=== PATIENT | male | born 1965 | race Caucasian/White ===

== ENCOUNTER 2021-09-06 11:46 | Outpatient (CLI) | payer OTHER, SELFPAY ==
--- NOTE | ~2021-09-06 | XR_ITS ---
EXAM: XR shoulder LT min 2V DATE: 09/06/2021 12:33 HISTORY: Pain of left shoulder joint . COMPARISON: None available. FINDINGS: Normal mineralization. Multiple old healed left rib fractures. No acute fracture or disloc ation. No lytic or blastic lesion. Mild AC joint hypertrophy and glenohumeral narrowing. No erosion o r periosteal change. Soft tissues within normal limits. IMPRESSION: Mild glenohumeral and AC joint arthritis. Reviewed, dictated and finalized at location K.
== END 2021-09-06 11:47 ==
PROVIDERS: PCP Physician Assistant; Visit Provider Physician Assistant
DX: M19.012 Primary osteoarthritis, left shoulder (principal)
CPT/HCPCS: 73030

== ENCOUNTER 2023-08-11 14:02 | Outpatient (CLI) | payer BC, SELFPAY ==
--- NOTE | ~2023-08-11 | XR_ITS ---
XR tibia fibula LT 2V DATE: 08/11/2023 14:43 INDICATION: Left lower leg injury TECHNIQUE: AP and lateral views of the lower leg COMPARISON: None FINDINGS: Mild posterior and slight plantar calcaneal enthesopathy. No fracture or dislocation, periosteal reaction or bone destruction of the tibia or fibula is detecte d. Normal alignment at the knee and ankle joints. IMPRESSION: No significant abnormality of the tibia or fibula Reviewed, dictated and finalized at location B.
--- NOTE | ~2023-08-11 | XR_ITS ---
XR hip LT min 2V DATE: 08/11/2023 14:43 INDICATION: Injury. 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 Normal alignment of the pubic symphysis and left sacroiliac joint. Left hip joint space appears relatively well preserved. No fracture, dislocation, avascular necrosis or bone destruction of the left hip. Osteopenia. IMPRESSION: No fracture or dislocation of left Reviewed, dictated and finalized at location B.
--- NOTE | ~2023-08-11 | XR_ITS ---
XR_[id number]_CR DATE: 08/11/2023 14:43 INDICATION: Injury, pain TECHNIQUE: AP and lateral views COMPARISON: None FINDINGS: No fracture or dislocation or joint effusion. No periosteal reaction or bone destruction. J oint spaces are well preserved. No radiopaque intra-articular loose body or chondrocalcinosis. IMPRESSION: Negative Reviewed, dictated and finalized at Location A. Reviewed, dictated and finalized at location B. IMPRESSION: Negative
== END 2023-08-11 14:03 ==
LOC: MICIMG 14:07
PROVIDERS: PCP Physician Assistant; Visit Provider Physician Assistant
DX: S89.92XA Unspecified injury of left lower leg, initial encounter (principal); X58.XXXA Exposure to other specified factors, initial encounter
CPT/HCPCS: 73502; 73560; 73590

== ENCOUNTER 2023-08-17 16:28 | Emergency (ER) | payer BC, SELFPAY ==
--- NOTE | ~2023-08-17 | XR_ITS ---
EXAM: XR shoulder LT min 2V DATE: 08/17/2023 18:25 HISTORY: shoulder pain, FELL 2 TO 3 WKS AGO . COMPARISON: 09/06/2021. FINDINGS: Normal mineralization. No fracture or dislocation. No lytic or blastic lesion. Mild AC jude nt and glenohumeral joint osteoarthritis. No erosion or periosteal change. Soft tissues within normal limits. Multiple healed left-sided rib fractures. IMPRESSION: No acute osseous finding in the left shoulder. Reviewed, dictated and finalized at location K.
--- NOTE | 2023-08-17 16:30 | ECG_ITS ---
SEE SCANNED COPY FOR CONFIRMED REPORT MTDD
[2023-08-17 16:50] VITALS: BP 141/93; PULSE 86; RESP 16; TEMP 36.9; O2SAT 98
[2023-08-17] MEDS: KETOROLAC 30 MG/ML VIAL (*BKC) IM (18:25)
--- NOTE | 2023-08-17 18:25 | ED.GENADULT ---
HPI - General Adult General Chief complaint: Extremity Injury, Upper Stated complaint: left arm numbness x 1month Time Seen by Provider: 08/17/23 17:53 History of Present Illness HPI narrative: 58-year-old male presents emergency department for evaluation for left shoulder pain. Patient had a fall few weeks ago and has since been having increased pain left shoulder. Patient did have follow-up with his primary care physician and had negative x-rays but states he is still having increased pain. Patient has been taking ibuprofen and acetaminophen for pain control. Patient describes decreased range of motion of the left arm. Related Data Allergies Allergy/AdvReac Type Severity Reaction Status Date / Time No Known Allergies Allergy Verified 08/17/23 17:42 Review of Systems Review of Systems: All systems reviewed & are unremarkable except as noted in HPI and below Exam Narrative: APPEARANCE: Well appearing, no pain, no distress, well-nourished. HEAD: normocephalic, atraumatic. EYES: PERRLA/EOMI, conjunctivae clear. NOSE: Normal no drainage RESPIRATORY: Airway patent, respirations nonlabored. Clear to auscultation bilaterally, no rales, rhonchi, wheezing. CARDIOVASCULAR: Regular rate and rhythm without murmurs rubs or gallops. ABDOMINAL: Soft, nontender, nondistended, normal bowel sounds MUSCULOSKELETAL: Left-sided scapular tenderness, decreased range of motion of the left shoulder and tenderness at the rotator cuff. NEURO: Alert. Cranial nerves II through XII intact. Good gait. Good coordination SKIN: Warm, dry. Normal Color Course Vital Signs Vital signs: Vital Signs Temperature 98.4 F 08/17/23 16:50 Pulse Rate 86 08/17/23 16:50 Respiratory Rate 16 08/17/23 16:50 Blood Pressure 141/93 H 08/17/23 16:50 Pulse Oximetry 98 08/17/23 16:50 Oxygen Delivery Room Air 08/17/23 16:50 Temperature 98.4 F 08/17/23 16:50 Pulse Rate 86 08/17/23 16:50 Respiratory Rate 16 08/17/23 16:50 Blood Pressure 141/93 H 08/17/23 16:50 Pulse Oximetry 98 08/17/23 16:50 Oxygen Delivery Room Air 08/17/23 16:50 Medical Decision Making [facility] Narrative Medical decision making narrative: 58-year-old male presents emergency department for evaluation of reproducible left shoulder pain. Patient had an injury approximately 3 weeks ago. x-ray showed no acute injury. Suspect a muscular strain and rotator cuff injury. Patient was provided a sling for comfort and provided outpatient follow-up with Orthopedics. Patient declined any narcotic medications for pain control. Patient is being provided a prescription for Flexeril and naproxen. Differential Diagnosis Differential Diagnosis: muscular strain, shoulder strain, rotator cuff injury Vital Signs Vital Signs: Vital Signs Temperature 98.4 F 08/17/23 16:50 Pulse Rate 86 08/17/23 16:50 Respiratory Rate 16 08/17/23 16:50 Blood Pressure 141/93 H 08/17/23 16:50 Pulse Oximetry 98 08/17/23 16:50 Oxygen Delivery Room Air 08/17/23 16:50 Temperature 98.4 F 08/17/23 16:50 Pulse Rate 86 08/17/23 16:50 Respiratory Rate 16 08/17/23 16:50 Blood Pressure 141/93 H 08/17/23 16:50 Pulse Oximetry 98 08/17/23 16:50 Oxygen Delivery Room Air 08/17/23 16:50 Imaging Data Radiologist's impression: Impressions Shoulder X-Ray 08/17/23 19:12 IMPRESSION: No acute osseous finding in the left shoulder. Discharge Plan Discharge Clinical Impression: Left shoulder strain Patient Disposition: Home, Self-Care Condition: Stable Instructions: Antibiotic Form, Rotator Cuff Injury (ED), How to Use a Sling (ED) Additional Instructions: Sling for comfort. Remove the sling a few times a day and do yknno-lc-ojccdo exercises. Flexeril for muscle spasm and naproxen as directed for pain control. Acetaminophen as needed for additional pain control. Have close follow-up with Orthopedics Prescriptions:
[2023-08-17] MEDS: CYCLOBENZAPRINE HCL 10 MG TABLET PO (18:26)
== END 2023-08-17 20:15 | disposition home or self-care (01) ==
PROVIDERS: Emergency Provider Emergency Medicine; PCP Physician Assistant
DX: S46.912A Strain of unspecified muscle, fascia and tendon at shoulder and upper arm level, left arm, initial encounter (principal); W19.XXXA Unspecified fall, initial encounter
CPT/HCPCS: 73030; 93005; 96372; 99283; A4565; A9270; J1885

== ENCOUNTER 2023-11-24 10:30 | Outpatient (RCR) | payer BC, SELFPAY ==
--- NOTE | 2023-09-27 14:28 | OPREHPOC ---
Outpatient Therapy Plan of Care This is a Multidisciplinary Plan of Care that may contain components documented by all disciplines (PT, OT, and ST.) PT Problem 1 PT Problem #1 Knowledge Deficit PT Goal 1 Goal Lucas with HEP Target Visit 4 PT Problem 2 PT Problem #2 Impaired Range of Motion PT Goal 1 Goal Achieve 170 degrees of active left shoulder flexion motion to improve functional reach Target Visit 8 PT Goal 2 Goal Achieve 140 degrees of active left shoulder abduction motion to improve self care Target Visit 8 PT Problem 3 PT Problem #3 Impaired Strength PT Goal 1 Goal Improve left shoulder flexion strength to 4+/5 to improve lifting and object manipulation Target Visit 8 PT Goal 2 Goal Improve left shoulder external rotation strength to 5/5 to improve shoulder stability and self care with no increased pain at contraction Target Visit 8 PT Problem 4 PT Problem #4 Impaired Functional Mobil PT Goal 1 Goal Demonstrate 20# box lift floor to chest with no increased pain for functional lifting return Target Visit 8 PT Problem 5 PT Problem #5 Pain PT Goal 1 Goal Report s75% improvement in comfort and quantity of sleep Target Visit 8
--- NOTE | 2023-09-27 14:29 | PTOPEVAL1 ---
Assessment and note entered by Madi Montgomery, PT Evaluation Information Assessment Status Evaluation Diagnosis Unspecified injury to left shoulder ICD-10 Condition Codes (PT) M25.512 Onset August 2023 Subjective Information Works for [employer]. 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 He slipped while washing the bus and fell into his shoulder on a waster basin into his armpit. He has pain constantly. He has been taking Tylenol and Ibuprophen for pain and is getting a sharp pain behind shoulder blade and down back of left triceps. He has not been taking muscle relaxers at this time. He is currently off work at this time. He is right handed and has history of right rotator cuff repair. He is R handed but has to use his left hand a lot for work . He is having extreme difficulty sleeping. Left arm elevation helps. Reported Pain Level Pain Score 2: Self Report Assessment PT Clinical Summary Patient presents with severe loss in functional shoulder Range of Motion and poor strength especially in flexion and abduction at and above 90 degrees. Painful arc noted with both passive and active motion. Patient unable to obtain active motion to 90 degrees actively. At this point, rehabilitation needs to emphasize bahai of functional ROM and progress to strengthening as tolerated for gross functional return. Plan of Care Interventions Electrical Stimulation,Gait Training,Hot Pack/Cold Pack,Manual Therapy,Neuro Re-education, Therapeutic Activities,Therapeutic Exercise PT Services Indicated Yes Treatment Frequency and 2x/week for 8 visits Duration These treatments will address the objective and functional deficits as defined above. The patient will be advanced safely and appropriately in order for the patient to progress towards his/her prior level of function. Additional exercises will be introduced and as well as a comprehensive home exercise program upon discharge, if needed, ?to ensure carryover of functional gains achieved in the clinic. This treatment plan has been reviewed and agreement upon by the patient.
--- NOTE | 2023-10-05 16:05 | PCPTNOTE ---
pt called and canceled today's appt.
--- NOTE | 2023-10-21 12:34 | OPREHPOC ---
Outpatient Therapy Plan of Care This is a Multidisciplinary Plan of Care that may contain components documented by all disciplines (PT, OT, and ST.) PT Problem 1 PT Problem #1 Knowledge Deficit PT Goal 1 Goal [place] with HEP Target Visit 4 Progress Met PT Problem 2 PT Problem #2 Impaired Range of Motion PT Goal 1 Goal Achieve 170 degrees of active left shoulder flexion motion to improve functional reach Target Visit 16 Progress Partially Met PT Goal 2 Goal Achieve 140 degrees of active left shoulder abduction motion to improve self care Target Visit 8 Progress Partially Met Comment Improved PT Problem 3 PT Problem #3 Impaired Strength PT Goal 1 Goal Improve left shoulder flexion strength to 4+/5 to improve lifting and object manipulation Target Visit 16 Progress Partially Met Comment Improved but still lacking. Some pain limitation. PT Goal 2 Goal Improve left shoulder external rotation strength to 5/5 to improve shoulder stability and self care with no increased pain at contraction Target Visit 16 Progress Partially Met Comment Improved but still pain limitation PT Problem 4 PT Problem #4 Impaired Functional Mobil PT Goal 1 Goal Demonstrate 20# box lift floor to chest with no increased pain for functional lifting return Target Visit 16 Progress Partially Met PT Problem 5 PT Problem #5 Pain PT Goal 1 Goal Report 75% improvement in comfort and quantity of sleep Target Visit 8 Progress Met
--- NOTE | 2023-10-21 12:34 | PTOPPROG ---
Assessment and note entered by Madi Montgomery, PT Evaluation Information Assessment Status Progress Diagnosis Unspecified injury to left shoulder ICD-10 Condition Codes (PT) M25.512 Onset August 2023 Subjective Information Reports that he believes he has a follow up with MD on 10/29. He feels he is doing better but still limited by pain. Unable to reach away from body with any weight lifting of objects. Still feels limited by pain majority of the time and wants to get away from being reliant on medication for pain releif. Assessment PT Clinical Summary Patient has seen functional progress in both shoulder ROM and strength at this time. Continues to be limited by pain with functional activity. Overall movement arc reflects some pain especially at end range. At this point he has shown continued rehab potential and has been educated in extensive HEP for continued shoulder strengthening and ROM activity. Patient has follow up with MD next week and further imaging may be encouraged to assess continued potential and possible presence of structural injury. Plan of Care Interventions Electrical Stimulation,Gait Training,Hot Pack/Cold Pack,Manual Therapy,Neuro Re-education, Therapeutic Activities,Therapeutic Exercise PT Services Indicated Yes Treatment Frequency and 1-2x/week for 8 visits based on MD recommendation Duration These treatments will address the objective and functional deficits as defined above. The patient will be advanced safely and appropriately in order for the patient to progress towards his/her prior level of function. Additional exercises will be introduced and as well as a comprehensive home exercise program upon discharge, if needed, ?to ensure carryover of functional gains achieved in the clinic. This treatment plan has been reviewed and agreement upon by the patient.
--- NOTE | 2023-11-26 10:27 | PCPTNOTE ---
Called and caneled due to work conflict. AKS
--- NOTE | 2023-12-02 11:42 | PCPTNOTE ---
Mr. Mortensen did not show for his scheduled appointment at 11:00. A message was left with the patient to contact the clinic. Manuel Malone, MPT
== END 2023-12-20 10:01 | disposition home or self-care (01) ==
LOC: ANHPT 10:30
PROVIDERS: PCP Physician Assistant; Visit Provider Orthopaedic Surgery
DX: S49.92XD Unspecified injury of left shoulder and upper arm, subsequent encounter (principal); S46.912D Strain of unspecified muscle, fascia and tendon at shoulder and upper arm level, left arm, subsequent encounter; S46.819D Strain of other muscles, fascia and tendons at shoulder and upper arm level, unspecified arm, subsequent encounter
CPT/HCPCS: 97014; 97110; 97140; 97161; 97530; G0283

== ENCOUNTER 2024-11-18 11:42 | Emergency (ER) | payer BC, SELFPAY ==
--- NOTE | ~2024-11-18 | CT_ITS ---
EXAMINATION: CT abdomen pelvis w con, 11/18/2024 12:50 CDT HISTORY: nonlocalized abdominal pain COMPARISON: Comparison 10/09/2018 TECHNIQUE: CT scan of the abdomen and pelvis was performed with contrast. Isovue 300, 92cc injected IV. One or more of the following dose reduction techniques were used: automated exposure control, adjustment of the mA and/or kV according to patient size, use of iterative reconstruction technique. Unless otherwise stated, incidental findings do not require dedicated follow up imaging FINDINGS: CT abdomen: LUNG BASES: The lung bases are clear. The visualized portions of the heart and pericardium are unremarkable. LIVER: Mild heterogeneity of the liver. Scattered probable calcified liver granulomas. Cirrhotic changes suspected of the liver with nodularity of the liver contours. The main portal vein is patent however there are subtle areas of abnormal density suspicious for sequelae of a previous thrombus. There is no intrahepatic biliary duct dilatation. Around the portal vein there are multiple collateral vessels noted. SPLEEN: Unremarkable, no splenomegaly. KIDNEYS: Right Kidney: Unremarkable. No calculi. No hydronephrosis. Left Kidney: Unremarkable. No calculi. No hydronephrosis ADRENAL GLANDS: Unremarkable. PANCREAS: The pancreas appears atrophic. GALLBLADDER/BILIARY: Cholelithiasis. The gallbladder is contracted. STOMACH AND ESOPHAGUS: There is hyperemia noted of the stomach which appears decompressed. BOWEL/MESENTERY: Moderate fecal content, thickening noted of the descending colon with an eccentric focus of abnormal density measuring 1 x 1 cm possibly sequelae of a previous diverticulitis however neoplasm should be considered. There are postsurgical changes noted adjacent to this area in the descending colon, superior to this location there is an extraluminal focus of air which communicates with the bowel possible sequelae of intravenous diverticulitis measuring 1 x 1 cm.. Moderate fecal content throughout the remaining large bowel. Appendix not identified. The terminal ileum is thickened and hyperemic with minimal mesenteric changes noted . There are no dilated small bowel loops. ADENOPATHY/RETROPERITONEUM: No lymphadenopathy. AORTA/VASCULATURE: Normal caliber aorta. FREE FLUID OR FREE AIR: Small amount of free fluid.. CT pelvis: SOLID ORGANS/REPRODUCTIVE: Unremarkable. BLADDER: Within normal limits. OSSEOUS STRUCTURES: No acute osseous abnormality.No suspicious lesions. OVERLYING SOFT TISSUES: Postsurgical changes in the abdominal wall. IMPRESSION: 1. Enteritis detailed above, correlate for history of inflammatory bowel disease. 2. Colitis of the descending colon, there is a small focus of abnormal density which may relate to sequelae of previous infection or intervention however neoplasm is not excluded. Abscess formation difficult to exclude. Follow-up recommended to assess. 3. 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 Contrast-enhanced MRI is suggested Reviewed, dictated and finalized at location A. IMPRESSION: 1. Enteritis detailed above, correlate for history of inflammatory bowel diseas e. 2. Colitis of the descending colon, there is a small focus of abnormal density which may relate to sequelae of previous infection or intervention however neop lasm is not excluded. Abscess formation difficult to exclude. Follow-up recomme nded to assess. 3. Cirrhotic disease of the liver with sequelae of probable portal venous throm bosis. Contrast-enhanced MRI is suggested
--- OUTSIDE RECORDS SUMMARY | 2024-11-18 11:44 | XMS_ITS | Encounter Summary ---
Author Organization [facility] Address [address] [place] [address] Care Team Providers Care Sales And Service Consultant Name Role Phone Gladys Delgado Primary Care Pr ovider Reason for Visit * Reason Onset Date Comments Diarrhea 11/17/2024 Encounter Details Date Type Department Care Team (Late st Contact Info) Description 11/17/2024 Telephone [facility] [address] [place] [id number] Mely Hernandez, GREG Diarrhea Social History Tobacco Use Types Packs/Day Years Used Date Smoking Tobacco: Every Day Cigarettes 1 25 Smokeless Tobacco: Former Alcohol Use Standard Drinks/Week Comments No 0 (1 standard drink = 0.6 oz pur e alcohol) Sex and Gender Information Value Date Recorded Sex Assigned at Not on file 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 Had been on Humira, and now off medication for 3 years. Interested in trying Tremfya. Only seen by PCP Dr. Sandhu. No GI. Pt reports to be on [place] Medicaid, and having too much diarrhea to leave home. Looking for prescription. RN reports the following needs. Referral from PCP. Will need appt with . PT hung up. documented in this encounter Plan of Treatment Not on file documented as of this encounter Visit Diagnoses Not on filedocumented in this encounter Care Teams Sales And Service Consultant Relationship Specialty Start Date End Date Gladys Delgado PA PCP - General Physician Wrinkle Chaser 11/22/14 documented as of this encounter
--- OUTSIDE RECORDS SUMMARY | 2024-11-18 11:44 | XMS_ITS | Clinical Summary ---
Author Organization [facility] Address [address] [place] [address] Care Team Providers Care Customer Support Coordinator Name Role Phone Gladys Delgado Primary Care Pr ovider Source Comments [facility],non-owned Affiliates and Associated Physician Practices is amultiple site organization consisting of ambulatory clinics and hospital sitesin [place], [place], [place] and [place]. This disclosure is being madepursuant to the Care Everywhere program and may not contain all information available regarding this patient. Last updated 17.[facility] [employer] Allergies No known active allergies Medications * Be aware that medications may not be up to date on this document. Alwaysverify current medications with the patient. metFORMIN (GLUCOPHAGE) 500 MG tablet Take 1,000 mg by mouth 2 times daily with morning and evening meal Active dapagliflozin propanediol (FARXIGA) 5 MG tablet Take 5 mg by mouth every morning Active Fish Oil-Cholecalcife rol (FISH OIL + D3 PO) Active Active Problems No known active problems Encounters Date Type Department Care Team Description 11/17/2024 Telephone [facility] 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 Gender Identity Not on file Sexual Orientation Not on file Last Filed Vital Signs Vital Sign Reading Time Taken Comments Blood Pressure 115/71 12/28/2014 10:20 AM CDT Pulse 100 11/27/2014 8:36 AM CDT Temperature 36.3 C (97.4 F) 11/27/2014 8:36 AM CDT Respiratory Rate 26 11/22/2014 12:45 PM CDT Oxygen Saturation 97% 12/28/2014 10:20 AM CDT Inhaled Oxygen Concentration - - Weight 76.2 kg (168 lb) 11/27/2014 8:36 AM CDT Height 182.9 cm (6') 11/27/2014 8:36 AM CDT Body Mass Index 22.78 11/27/2014 8:36 AM CDT Plan of Treatment Health Maintenance Due Date Last Done Comments COLOGUARD (AGES 45-75) - COL ON CA SCREENING 1965 CT COLONOGRAPHY - COLON CA SCREENING 1965 FIT - COLON CA SCREENING 1965 FLEX SIG - COLON CA SCREENING 1965 LIPID TESTING 1965 HIV SCREENING 1978 HEPATITIS C SCREENING 01/07/1981 DTAP/TDAP/TD VACCINES (1 - Tdap) 1982 PNEUMOCOCCAL VACCINE 50+ (1 of 1 - PCV) 2013 ZOSTER VACCINE (1 of 2) 2013 COVID-19 VACCINE (1 - 2023-2 5 season) 2023 DEPRESSION SCREENING 03/22/2024 INFLUENZA VACCINE (#1) 2024 COLON MONITORING 11/22/2024 11/22/2014, 11/22/2014, 11/22/2014 COLONOSCOPY - COLON CA SCREENING 11/22/2024 11/22/2014, 11/22/2014, 11/22/2014 Colorectal Cancer Screening 11/22/2024 Respiratory Syncytial Virus (RSV) Vaccine Pt: or over 60 yrs (1 - 1-dose 75+ series) 2038 HEPATITIS B VACCINE Aged Out No longe r eligible based on patient's age to complete this topic HIB VACCINE Aged Out No longer eligi ble based on patient's age to complete this topic HPV VACCINE Aged Out No longer eligi ble based on patient's age to complete this topic MENINGOCOCCAL (Group B) VACCINE SHARED DECISION-MAKING Aged Out No longer eligible based on patient's age to complete this topic MENINGOCOCCAL GROUPS A/C/Y/W VACCINE Aged Out No longer eligible b ased on patient's age to complete this topic Procedures Procedure Name Priority Date/Time Associated Diagnosis Comments ENDOSCOPY, COLON, SCREENING Routine 11/22/2014 10:46 AM CDT from Last 3 Months or Most Recently Relevant to Health Maintenance Results * ENDOSCOPY, COLON, SCREENING (11/22/2014 10:46 AM CDT) Report Endoscopy POC _ Patient Name: Jose C Mortensen Procedure Date: 11/22/2014 10:46 AM Date of : 1965 Admit Type: Outpatient Age: 49 Gender: Male Attending MD: Catalina Verma MD _ Procedure: Colonoscopy Indications: Exclusion of Crohn's disease Providers: Catalina Verma MD (Doctor), Leonila Kauffman (Fellow), Sandhya Montero RN, Ryann Patton, Parish Visitor Patient Profile: 49 yo male with reported history of Crohn's disease not on any therapy who was admitted to [facility] for appendicitis. Here today for colonoscopy to evaluate for presence of IBD given plans for upcoming appendectomy. Referring MD: Gladys Sandhu (Referring MD), Lyly Clayton (Referring MD), nAita Pollard MD (Referring MD) Medicines: Diphenhydramine 50 mg IV, Fentanyl 100 micrograms IV, Midazolam 4 mg IV Complications: No immediate complications. _ Procedure: Pre-Anesthesia Assessment: - Prior to the procedure, a History and Physical was performed, and patient medications, allergies and sensitivities were reviewed. The patient's tolerance of previous anesthesia was reviewed. - The risks and benefits of the procedure and the sedation options and risks were discussed with the patient. All questions were answered and informed consent was obtained. - Patient identification and proposed procedure were verified prior to the procedure by the physician, the nurse and the video surveillance technician. The procedure was verified in the pre-procedure area in the procedure room. - ASA Grade Assessment: II - A patient with mild systemic disease. - Sedation was administered by an endoscopy nurse. The sedation level attained was moderate. - The heart rate, respiratory rate, oxygen saturations, blood pressure, adequacy of pulmonary ventilation, and response to care were monitored throughout the procedure. After I obtained informed consent, the scope was passed under direct vision. Throughout the procedure, the patient's blood pressure, pulse, and oxygen saturations were monitored continuously. The Colonoscope was introduced through the anus and advanced to the terminal ileum. The colonoscopy was performed without difficulty. The patient tolerated the procedure well. The quality of the bowel preparation was good. Impression: - The entire examined colon is normal. Biopsied. - The examined portion of the ileum was normal. Biopsied. - No endoscopic evidence for active inflammatory bowel disease. Findings: The perianal and digital rectal examinations were normal. The colon (entire examined portion) appeared normal. Random biopsies were taken from the right colon with a cold forceps for histology. There was, perhaps, some minimal appendiceal orifice erythema. The terminal ileum appeared normal. Random biopsies were taken with a cold forceps for histology. The retroflexed view of the distal rectum and anal verge was normal and showed no anal or rectal abnormalities. _ Recommendation: - Discharge patient to home. - Await pathology results. - Follow-up with (surgeon) and Dr. Pollard (gastroenterologi st) as scheduled. Procedure Code(s): --- Professional --- 40521, Colonoscopy, flexible, proximal to splenic flexure; with biopsy, single or multiple --- Technical --- 40917, Colonoscopy, flexible, proximal to splenic flexure; with biopsy, single or multiple Diagnosis Code(s): --- Professional --- 555.9, Regional enteritis of unspecified site --- Technical --- 555.9, Regional enteritis of unspecified site CPT copyright 2013 [employer]. All rights reserved. The codes documented in this report are preliminary and upon dehydrator tender review may be revised to meet current compliance requirements. Attending Participation: I was present and participated during the entire procedure, including non-cooley portions. ____ Catalina Verma MD 11/22/2014 12:10 PM Number of Addenda: 0 Note Initiated On: 11/22/2014 10:46 AM [facility] 11/22/2014 10:4 6 AM CDT Catalina Verma MD GI PROCEDURE ORDERABLES Ed ited Result - Final [facility] ENDOSCOPY from Last 3 Months or Most Recently Relevant to Health Maintenance Insurance MEDICAID - [place] [facility] Care Teams Customer Support Coordinator Relationship Specialty Start Date End Date Gladys Delgado PA PCP - General Physician Shear Tender 11/22/14
[2024-11-18 11:47] VITALS: BP 111/69; PULSE 93; RESP 20; TEMP 36.9; O2SAT 100
[2024-11-18 12:09] LABS: Hematocrit 48.2 % (42.0-52.0); Hemoglobin 15.6 g/dL (14.0-18.0); Immature Granulocyte Percent A 0.4 % (0-0.5); Lymphocytes Absolute Auto 0.78 K/mm3 (0.9-3.2); Mean Corpuscular HGB Conc 32.4 g/dl (32-36); Mean Corpuscular Hemoglobin 29.1 pg (26-34); Mean Corpuscular Volume 89.9 fl (80-100); Nucleated Red Blood Cells Absolute Auto 0.000 K/mm3 (0.0-0.012); Nucleated Red Blood Cells Perc 0.0 % (0.0-0.2); Platelet Count Result 314 k/mm3 (150-375); Red Blood Count 5.36 M/mm3 (4.6-6.20); White Blood Count 10.9 K/mm3 (4.5-10.0)
--- OUTSIDE RECORDS SUMMARY | 2024-11-18 12:21 | XMS_ITS | Clinical Summary ---
Author Organization [facility] Address [address] [place] [address] Care Team Providers Care Wireless Internet Installer Name Role Phone Gladys Delgado Primary Care Pr ovider Source Comments [facility],non-owned Affiliates and Associated Physician Practices is amultiple site organization consisting of ambulatory clinics and hospital sitesin [place], [place]. This disclosure is being madepursuant to the Care Everywhere program and may not contain all information available regarding this patient. 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 Here today for colonoscopy to evaluate for presence of IBD given plans for upcoming appendectomy. Referring MD: Gladys Sandhu (Referring MD), Lyly Clayton (Referring MD), Anita Pollard MD (Referring MD) Medicines: Diphenhydramine 50 [...] by the physician, the nurse and the school laboratory technician. The procedure was verified in the [...] as scheduled. Procedure Code(s): --- Professional --- 55951, Colonoscopy, flexible, proximal to splenic flexure; with biopsy, single or multiple --- Technical --- 55119, Colonoscopy, flexible, proximal to splenic flexure; with biopsy, single or multiple Diagnosis Code(s): --- Professional --- 555.9, Regional enteritis of unspecified site --- Technical --- 555.9, Regional enteritis of unspecified site CPT copyright 2013 [employer]. All rights reserved. The codes documented in this report are preliminary and upon coin purse framer review may be revised to meet current compliance requirements. Attending Participation: I was present and participated during the entire procedure, including non-cooley portions. ____ Catalina Verma MD 11/22/2014 12:10 PM Number of Addenda: 0 Note Initiated On: 11/22/2014 10:46 AM [facility] 11/22/2014 10:4 6 AM CDT Catalina Verma MD GI PROCEDURE ORDERABLES Ed ited Result - Final [facility] ENDOSCOPY from Last 3 Months or Most Recently Relevant to Health Maintenance Insurance MEDICAID - [place] [facility] Care Teams Wireless Internet Installer Relationship Specialty Start Date End Date Gladys Delgado PA PCP - General Physician Fish Hatchery Worker 11/22/14
--- OUTSIDE RECORDS SUMMARY | 2024-11-18 12:21 | XMS_ITS | Encounter Summary ---
Author Organization [facility] Address [address] [place] [address] Care Team Providers Care Senior Software Analyst Name Role Phone Gladys Delgado Primary Care Pr ovider Reason for Visit * Reason Onset Date Comments Diarrhea 11/17/2024 Encounter Details Date Type Department Care Team (Late st Contact Info) Description 11/17/2024 Telephone [facility] [address] [place] [phone] Mely Hernandez, GREG Diarrhea Social History Tobacco Use Types Packs/Day Years Used Date Smoking Tobacco: Every Day Cigarettes 1 25 Smokeless Tobacco: Former Alcohol Use Standard Drinks/Week Comments No 0 (1 standard drink = 0.6 oz pur e alcohol) Sex and Gender Information Value Date Recorded Sex Assigned at Not on file 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 Pt reports to be on [place] Medicaid, and having too much diarrhea to leave home. Looking for prescription. RN reports the following needs. Referral from PCP. Will need appt with . PT hung up. documented in this encounter Plan of Treatment Not on file documented as of this encounter Visit Diagnoses Not on filedocumented in this encounter Care Teams Senior Software Analyst Relationship Specialty Start Date End Date Gladys Delgado PA PCP - General Physician Tire Spotter 11/22/14 documented as of this encounter
[2024-11-18 12:29] LABS: Alanine Aminotransferase 16 U/L (6-50); Albumin Level 3.9 g/dL (3.5-5.1); Alkaline Phosphatase 69 U/L (38-126); Anion Gap 9 mmol/L (4-12); Aspartate Amino Transferase 34 U/L (17-59); Bilirubin,Total 0.9 mg/dL (0.2-1.3); Blood Urea Nitrogen 24 mg/dL (9-20); Calcium 9.1 mg/dL (8.4-10.2); Carbon Dioxide 23 mmol/L (22-30); Chloride 103 mmol/L (98-107); Estimated CRCL calculation 84 ml/min; Estimated Glomerular Filt Rate > 60; Glucose 108 mg/dL (65-110); Lipase 87 U/L (23-300); Potassium 4.1 mmol/L (3.4-5.0); Sodium 135 mmol/L (137-145); Total Protein 7.2 g/dL (6.3-8.2)
[2024-11-18 13:40] LABS: Add Urine Microscopic? YES; Appearance Urine Cloudy (Clear); Glucose Urine UA 3+ mg/dL (Negative); Leukocyte Esterase Ur Negative LEU/UL (Negative); Need Manual Microscopic Reviewed; Nitrate Urine Positive (Negative); Non Pathogenic Casts 0-2; Specific Grav Ur > 1.045 (1.001-1.035)
[2024-11-18 14:03] VITALS: BP 109/68; PULSE 65; RESP 16; O2SAT 99
--- NOTE | 2024-11-18 14:47 | ED_ITS ---
HPI - General Adult General Chief complaint: Nausea/Vomiting/Diarrhea Stated complaint: diarrhea Time Seen by Provider: 11/18/24 11:44 History of Present Illness HPI narrative: Patient is a 59-year-old male with history of crohns disease who presents to the ER with diarrhea. Sudden onset today causing him have incontinence. He has not been on Humira for several years. No fevers chills or sweats. He did not note any blood in his stool. No recent antibiotic usage. Related Data Home Medications ?Medication ?Instructions ?Recorded ?Confirmed ?Last Taken ?Type empagliflozin 10 mg tablet 10 mg PO DAILY 08/27/2312/13 Unknown History (Jardiance) metformin 1,000 mg tablet 1,000 mg PO BID 08/27/2312/13 Unknown History cyclobenzaprine 10 mg tablet 10 mg PO BID 09/15/2312/13 Unknown History Allergies Allergy/AdvReac Type Severity Reaction Status Date / Time No Known Allergies Allergy Verified 11/18/24 11:56 Review of Systems 2 Review of Systems: All systems reviewed & are unremarkable except as noted in HPI and below Constitutional: Constitutional: Reports no additional constitutional complaints Cardiovascular: Cardiovascular: Reports no additional cardiovascular complaints Respiratory: Respiratory: Reports no additional respiratory complaints Gastrointestinal: Gastrointestinal: Reports no additional gastrointestinal complaints [facility] Past Medical History Medical History (Updated 11/18/24 @ 15:06 by Maxi Woods MD) Crohn disease Diabetes Surgical History Surgical History (Updated 11/18/24 @ 14:48 by Maxi Woods MD) History of partial colectomy Hx of repair of right rotator cuff DOS unknown- Dr. 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 HEAD: Normocephalic, atraumatic. ENT: Mucous membranes moist. CHEST: Clear to auscultation. No respiratory distress. HEART: Regular rate and rhythm. Normal peripheral pulses. ABDOMEN: Soft, nontender, nondistended. EXTREMITIES: Normal range of motion. No edema. SKIN: Warm, dry, no rash. NEURO: Alert and oriented x3. PSYCH: Normal mood and affect. Course Course Emergency Course: Patient resting comfortably. Informed of results. Discussed with GI. Will start on short course of oral steroids to help with inflammatory bowel disease flare. Recommend follow-up with GI for scoping due to the fact that he has a questionable area possible neoplasm. Vital Signs Vital signs: Vital Signs Temperature 98.4 F 11/18/24 11:47 Pulse Rate 93 11/18/24 11:47 Respiratory Rate 20 11/18/24 11:47 Blood Pressure 111/69 11/18/24 11:47 Pulse Oximetry 100 11/18/24 11:47 Oxygen Delivery Room Air 11/18/24 11:47 Temperature 98.4 F 11/18/24 11:47 Pulse Rate 65 11/18/24 14:03 Respiratory Rate 16 11/18/24 14:03 Blood Pressure 109/68 11/18/24 14:03 Pulse Oximetry 99 11/18/24 14:03 Oxygen Delivery Room Air 11/18/24 11:47 Medical Decision Making Vital Signs Vital Signs: Vital Signs Temperature 98.4 F 11/18/24 11:47 Pulse Rate 93 11/18/24 11:47 Respiratory Rate 20 11/18/24 11:47 Blood Pressure 111/69 11/18/24 11:47 Pulse Oximetry 100 11/18/24 11:47 Oxygen Delivery Room Air 11/18/24 11:47 Temperature 98.4 F 11/18/24 11:47 Pulse Rate 65 11/18/24 14:03 Respiratory Rate 16 11/18/24 14:03 Blood Pressure 109/68 11/18/24 14:03 Pulse Oximetry 99 11/18/24 14:03 Oxygen Delivery Room Air 11/18/24 11:47 Lab Data 11/18/24 12:03 11/18/24 12:03 Labs: Lab Results 11/18/24 11/18/24 Range/Units 12:03 13:24 WBC 10.9 H (4.5-10.0) K/mm3 RBC 5.36 (4.6-6.20) M/mm3 Hgb 15.6 (14.0-18.0) g/dL Hct 48.2 (42.0-52.0) % MCV 89.9 (80-100) fl MCH 29.1 (26-34) pg MCHC 32.4 (32-36) g/dl RDW 15.0 H (11.5-14.5) % Plt Count 314 (150-375) k/mm3 MPV 9.6 (7.4-10.4) fl Immature Gran % (Auto) 0.4 (0-0.5) % Neut % (Auto) 85.9 H (45.5-73.1) % Lymph % (Auto) 7.2 L (18.3-44.2) % [place] % (Auto) 5.6 (2.6-8.5) % Eos % (Auto) 0.5 (0-4.4) % Baso % (Auto) 0.4 (0.2-1.2) % Lymph # (Auto) 0.78 L (0.9-3.2) K/mm3 [place] # (Auto) 0.6 (0.1-0.6) K/mm3 Eos # (Auto) 0.1 (0-0.3) K/mm3 Baso # (Auto) 0.0 (0.0-0.1) K/mm3 Abs Immat Gran (auto) 0.04 H (0.00-0.031) K/mm3 Absolute Neuts (auto) 9.4 H (1.3-6.7) K/mm3 Absolute Nucleated RBC 0.000 (0.0-0.012) K/mm3 Nucleated RBC % 0.0 (0.0-0.2) % Sodium 135 L (137-145) mmol/L Potassium 4.1 (3.4-5.0) mmol/L Chloride 103 (98-107) mmol/L Carbon Dioxide 23 (22-30) mmol/L Anion Gap 9 (4-12) mmol/L BUN 24 H (9-20) mg/dL Creatinine 0.73 (0.7-1.3) mg/dL Estim Creat Clear Calc 84 ml/min Estimated GFR > 60 (59 - ) Glucose 108 (65-110) mg/dL Calcium 9.1 (8.4-10.2) mg/dL Total Bilirubin 0.9 (0.2-1.3) mg/dL AST 34 (17-59) U/L ALT 16 (6-50) U/L Alkaline Phosphatase 69 (38-126) U/L Total Protein 7.2 (6.3-8.2) g/dL Albumin 3.9 (3.5-5.1) g/dL Lipase 87 (23-300) U/L Urine Color Yellow (Yellow) Urine Appearance Cloudy H (Clear) Urine pH 5.0 (5.0-9.0) Ur Specific [place] > 1.045 H (1.001-1.035) Urine Protein Negative (Negative) mg/dL Urine Glucose (UA) 3+ H (Negative) mg/dL Urine Ketones Trace H (Negative) mg/dL Ur Blood (Man) Trace (Negative) Urine Nitrate Positive H (Negative) Urine Bilirubin Negative (Negative) Urine Urobilinogen 0.2 (<2.0) mg/dL Add Ur Microanalysis Reviewed Leukocyte Esterase Rfl Negative (Negative) HERMINIO/UL Urine RBC 0-2 (0-2) /hpf Urine WBC 11-20 H (0-3) /hpf Ur Squamous Epith Cells None seen (Few) /hpf Urine Bacteria 4+ H /hpf Urine Casts 0-2 Discharge Plan Discharge Clinical Impression: Crohn's disease, Colonic mass Patient Disposition: Home Condition: Stable Instructions: Crohn Disease (ED) Additional Instructions: You will be placed on prednisone 40 mg daily to help with your flare. He need to follow-up with GI for colonoscopy as your imaging showed a possible area of mass. Return the ER if you have worsening symptoms. Patient Language: Zambian Prescriptions: New prednisone 20 mg tablet 40 mg PO DAILY 7 Days Qty: 14 0RF No Action metformin 1,000 mg tablet 1,000 mg PO BID Jardiance 10 mg tablet 10 mg PO DAILY cyclobenzaprine 10 mg tablet 10 mg PO BID Rx Instructions: #14 0RF naproxen 500 mg tablet See Rx Instructions .ROUTE .COMPLEX Qty: 60 1RF Dose Instruction: TAKE 1 TABLET BY MOUTH TWICE DAILY Rx Instructions: TAKE 1 TABLET BY MOUTH TWICE DAILY Follow-up/Referrals: Phoebe,DALY Graham [Primary Care Provider, Unknown] Randolph Sanchez, MD [Physician, Gastroenterology] - 1 Week
[2024-11-18 15:21] VITALS: BP 138/90; PULSE 74; RESP 16; O2SAT 99
== END 2024-11-18 15:22 | disposition home or self-care (01) ==
PROVIDERS: Emergency Provider Emergency Medicine; PCP Physician Assistant
DX: K50.90 Crohn's disease, unspecified, without complications (principal); K63.9 Disease of intestine, unspecified; E11.9 Type 2 diabetes mellitus without complications; F17.210 Nicotine dependence, cigarettes, uncomplicated; Z79.84 Long term (current) use of oral hypoglycemic drugs
CPT/HCPCS: 36415; 74177; 80053; 81001; 83690; 85025; 87086; 99284; Q9967

== ENCOUNTER 2024-11-19 10:41 | Emergency (ER) | payer BC, SELFPAY ==
--- OUTSIDE RECORDS SUMMARY | 2010-02-11 07:45 | XMS_ITS | Continuity of Care Document ---
Author Organization [facility] Address [address] [place] [address] Phone Care Team Providers Care Budget Technician Name Role Phone Lizarraga OD, Derrell Unavailable [...] Diagnoses Date Provider Providers Copied on Encounter [facility], [address] [place] [address] [address], [place], [place], [address], [place] tel:[phone] [facility] No Information 3-201 0 Lizarraga OD Derrell. [address] [facility] , [address], [place], [place], [facility], . tel:[phone] [facility], [address] [place] [address] [address], [place], [place], [address], [place] tel:[phone] [facility] No Information 5-200 9 Krishnasamy Osbaldo. [address] [facility] [address], [place], [facility], [place]. tel:[phone] Office/outpat ient Visit, Est [facility], [address] [place] [address] [address], [place], [place], [address], [place] tel:[phone] [facility] [place] No Information 0200 9 Marimar Cleary. [address], [place], [address], [place]. tel:[phone] [facility], [address], [place], [place], [address], [place] tel:[phone] [facility] No Information 7200 9 Paulinajanett Hidalgo. [address] [facility] , [address], [place], [address], [place]. tel:[phone] [facility], [address], [place], [place], [address], [place] tel:[phone] SEC [facility] No Information 1200 7 Wankum Joaquín. [address] [facility] [employer], [address], [place], [place], [address], [place]. tel:[phone] [facility], [address], [place], [place], [address], [place] tel:[phone] SEC [facility] No Information 4200 7 Wankum Joaquín. [address] [facility], [address], [place], [place], [address], [place]. tel:[phone] Family History Family Member Type Diagnosis Age At Onset No Information Payers Payer name Insurance type Covered constitution party ID Carlosjany roderickdeborah(s) [facility] [id number] Social History Type Description Quantity Date Captured [...]
--- OUTSIDE RECORDS SUMMARY | 2024-11-19 10:43 | XMS_ITS | Clinical Summary ---
Author Organization [facility] Address [facility] [place] [address] Care Team Providers Care Solar Sales Estimator Name Role Phone Unavailable Primary Care Provider Unavailabl e Social History Tobacco Use Types Packs/Day Years Used Date Smoking Tobacco: Never Assessed Sex and Gender Information Value Date Recorded Sex Assigned at Not on file Legal Sex Male 7:55 PM CDT Gender Identity Not on file Sexual Orientation Not on file Plan of Treatment Health Maintenance Due Date Last Done Comments Colorectal Cancer Screening Colonoscopy (10 Years) 1963 Annual Physical 1966 Hepatitis C 1981 DTaP, Tdap and Td Vaccines ( 1 - Tdap) 1982 Pneumococcal Vaccine: 50+ Ye ars (1 of 1 - PCV) 2013 Zoster Vaccines (1 of 2) 2013 COVID-19 Vaccine ( - 2023-2 5 season) 2023 RSV Immunization or 60+ Years (1 - 1-dose 75+ series) 2038 Meningococcal B Vaccine Aged Out No l onger eligible based on patient's age to complete this topic Meningococcal Vaccine Aged Out No william juan eligible based on patient's age to complete this topic RSV Immunizations Under 20 Months Aged Out No longer eligible based on patient's age to complete this topic
--- OUTSIDE RECORDS SUMMARY | 2024-11-19 10:43 | XMS_ITS | Clinical Summary ---
Author Organization [facility] Address [address] [place] [address] Care Team Providers Care Radiation Control Technician Name Role Phone Gladys Delgado Primary Care Pr ovider Source Comments [facility],non-owned Affiliates and Associated Physician Practices is amultiple site organization consisting of ambulatory clinics and hospital sitesin [place], [place]. This disclosure is being madepursuant to the Care Everywhere program and may not contain all information available regarding this patient. 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 Gender Identity Not on file Sexual Orientation [...] Tdap) 1982 PNEUMOCOCCAL VACCINE 50+ (1 of 2 - PCV) 1982 ZOSTER VACCINE (1 of 2) 2013 Respiratory Syncytial Virus (RSV) Vaccine Pt: or over 60 yrs (1 - Risk 60-74 years 1-dose series) 2023 COVID-19 VACCINE (1 - 2023-2 5 season) 2023 DEPRESSION SCREENING 03/22/2024 INFLUENZA VACCINE (#1) 2024 COLON MONITORING 11/22/2024 11/22/2014, 11/22/2014, 11/22/2014 COLONOSCOPY - COLON CA SCREENING 11/22/2024 11/22/2014, 11/22/2014, 11/22/2014 Colorectal Cancer Screening 11/22/2024 HEPATITIS B VACCINE Aged Out No longe [...] Kauffman (Fellow), Sandhya Montero RN, Ryann Patton, Applications Support Specialist Patient Profile: 49 yo male with reported history of Crohn's disease not on any therapy who was admitted to [facility] for appendicitis. Here today for colonoscopy [...] by the physician, the nurse and the electronic sales and service technician. The procedure was verified in the [...] as scheduled. Procedure Code(s): --- Professional --- 56403, Colonoscopy, flexible, proximal to splenic flexure; with biopsy, single or multiple --- Technical --- 14122, Colonoscopy, flexible, proximal to splenic flexure; with biopsy, single or multiple Diagnosis Code(s): --- Professional --- 555.9, Regional enteritis of unspecified site --- Technical --- 555.9, Regional enteritis of unspecified site CPT copyright 2013 [employer]. All rights reserved. The codes documented in this report are preliminary and upon seasonal greenery bundler review may be revised to meet current compliance requirements. Attending Participation: I was present and participated during the entire procedure, including non-cooley portions. ____ Catalina Verma MD 11/22/2014 12:10 PM Number of Addenda: 0 Note Initiated On: 11/22/2014 10:46 AM [facility] ENDOSCOPY 11/22/2014 10:4 6 AM CDT us Catalina Verma MD GI PROCEDURE ORDERABLES Ed ited Result - Final [facility] ENDOSCOPY from Last 3 Months or Most Recently Relevant to Health Maintenance Insurance MEDICAID - [facility] Care Teams Radiation Control Technician Relationship Specialty Start Date End Date Gladys Delgado PA PCP - General Physician Nursing Home Admissions Director 11/22/14
[2024-11-19 11:01] VITALS: BP 103/68; PULSE 105; RESP 20; TEMP 36.4; O2SAT 98
--- OUTSIDE RECORDS SUMMARY | 2024-11-19 12:12 | XMS_ITS | Clinical Summary ---
Author Organization [facility] Address [facility] [place] [address] Care Team Providers Care Impregnator Electrolytic Capacitors Name Role Phone Unavailable Primary Care Provider [...]
--- OUTSIDE RECORDS SUMMARY | 2024-11-19 12:12 | XMS_ITS | Clinical Summary ---
Author Organization [facility] Address [address] [facility] [place] [address] Care Team Providers Care Director Telecommunications Name Role Phone Gladys Delgado Primary Care Pr ovider Source Comments [facility],non-owned Affiliates and Associated Physician Practices is amultiple site organization consisting of ambulatory clinics and hospital sitesin [place], [place], [place] and [place]. This disclosure is being madepursuant to the Care Everywhere program and may not contain all information available regarding this patient. Last updated 17.[facility] [employer] Allergies No known active allergies Medications * [...] 11/17/2024 Telephone 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 Here today for [...] by the physician, the nurse and the aircraft technician. The procedure was verified in the [...] as scheduled. Procedure Code(s): --- Professional --- 99513, Colonoscopy, flexible, proximal to splenic flexure; with biopsy, single or multiple --- Technical --- 59758, Colonoscopy, flexible, proximal to splenic flexure; with biopsy, single or multiple Diagnosis Code(s): --- Professional --- 555.9, Regional enteritis of unspecified site --- Technical --- 555.9, Regional enteritis of unspecified site CPT copyright 2013 [employer]. All rights reserved. The codes documented in this report are preliminary and upon heel turner review may be revised to meet current compliance requirements. Attending Participation: I was present and participated during the entire procedure, including non-cooley portions. ____ Catalina Verma MD 11/22/2014 12:10 PM Number of Addenda: 0 Note Initiated On: 11/22/2014 10:46 AM [facility] ENDOSCOPY 11/22/2014 10:4 6 AM CDT us Catalina Verma MD GI PROCEDURE ORDERABLES Ed ited Result - Final [facility] ENDOSCOPY from Last 3 Months or Most Recently Relevant to Health Maintenance Insurance MEDICAID - [facility] Care Teams Director Telecommunications Relationship Specialty Start Date End Date Gladys Delgado PA PCP - General Physician Weigher Packing 11/22/14
[2024-11-19] MEDS: SODIUM CHLORIDE 0.9% IV 1,000 ML 999 ML IV CONT (12:17)
[2024-11-19 12:25] LABS: Hematocrit 42.1 % (42.0-52.0); Hemoglobin 13.8 g/dL (14.0-18.0); Immature Granulocyte Percent A 0.4 % (0-0.5); Lymphocytes Absolute Auto 0.23 K/mm3 (0.9-3.2); Mean Corpuscular HGB Conc 32.8 g/dl (32-36); Mean Corpuscular Hemoglobin 29.6 pg (26-34); Mean Corpuscular Volume 90.1 fl (80-100); Nucleated Red Blood Cells Absolute Auto 0.000 K/mm3 (0.0-0.012); Nucleated Red Blood Cells Perc 0.0 % (0.0-0.2); Platelet Count Result 274 k/mm3 (150-375); Red Blood Count 4.67 M/mm3 (4.6-6.20); White Blood Count 9.6 K/mm3 (4.5-10.0)
[2024-11-19 12:34] LABS: Alanine Aminotransferase 16 U/L (6-50); Albumin Level 3.4 g/dL (3.5-5.1); Alkaline Phosphatase 65 U/L (38-126); Anion Gap 4 mmol/L (4-12); Aspartate Amino Transferase 19 U/L (17-59); Bilirubin,Total 0.5 mg/dL (0.2-1.3); Blood Urea Nitrogen 26 mg/dL (9-20); Calcium 9.1 mg/dL (8.4-10.2); Carbon Dioxide 25 mmol/L (22-30); Chloride 105 mmol/L (98-107); Estimated CRCL calculation 84 ml/min; Estimated Glomerular Filt Rate > 60; Glucose 164 mg/dL (65-110); Lipase 74 U/L (23-300); Potassium 4.3 mmol/L (3.4-5.0); Sodium 134 mmol/L (137-145); Total Protein 6.1 g/dL (6.3-8.2)
[2024-11-19 14:32] VITALS: BP 112/67; PULSE 77; RESP 18; O2SAT 99
[2024-11-19 14:47] LABS: Cannabinoid Screen Urine Negative (Negative)
--- NOTE | 2024-11-19 14:58 | ED.GENADULT ---
HPI - General Adult General Chief complaint: Nausea/Vomiting/Diarrhea Stated complaint: diarrhea Time Seen by Provider: 11/19/24 11:45 History of Present Illness HPI narrative: Patient is a 59-year-old male who presents ER with diarrhea. Five episodes today. He had 5 yesterday. Has history of Crohn's disease. Was seen yesterday in the ER and prescribed prednisone. He took a dose today and yesterday. Reports that the diarrhea is a problem because he is staying with his ex- in her and there is only 1 bathroom and he is in there all the time. He reports depression but no suicidal ideation and reports that even if he had a plan he is to be give a list to take his own life. He has not talked to his doctor about his depression. He has never been hospitalized for his mental health. He does not drink alcohol or do drugs. He does smoke cigarettes. He has taken some Pepto-Bismol without relief. Related Data Home Medications ?Medication ?Instructions ?Recorded ?Confirmed ?Last Taken ?Type empagliflozin 10 mg tablet 10 mg PO DAILY 08/27/23 10/29/23 Unknown History (Jardiance) metformin 1,000 mg tablet 1,000 mg PO BID 08/27/23 10/29/23 Unknown History cyclobenzaprine 10 mg tablet 10 mg PO BID 09/15/23 10/29/23 Unknown History Allergies Allergy/AdvReac Type Severity Reaction Status Date / Time No Known Allergies Allergy Verified 11/19/24 11:36 Review of Systems Review of Systems: All systems reviewed & are unremarkable except as noted in HPI and below Constitutional: Constitutional: Reports no additional constitutional complaints ENT: Reports system reviewed and no additional complaints, except as documented Cardiovascular: Cardiovascular: Reports no additional cardiovascular complaints Respiratory: Respiratory: Reports no additional respiratory complaints Gastrointestinal: Gastrointestinal: Reports no additional gastrointestinal complaints [facility] Past Medical History Medical History (Updated 11/19/24 @ 17:22 by Maxi Woods MD) Crohn disease Diabetes Surgical History Surgical History (Updated 11/18/24 @ 14:48 by Maxi Woods MD) History of partial colectomy Hx of repair of right rotator cuff DOS unknown- Dr. 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 HEAD: Normocephalic, atraumatic. ENT: Mucous membranes moist. CHEST: Clear to auscultation. No respiratory distress. HEART: Regular rate and rhythm. Normal peripheral pulses. ABDOMEN: Soft, nontender, nondistended. EXTREMITIES: Normal range of motion. No edema. SKIN: Warm, dry, no rash. NEURO: Alert and oriented x3. PSYCH: Normal mood and affect. Course Course Emergency Course: Patient has had no episodes of diarrhea while in the ER. He has also been evaluated by crisis and has been given a safety plan. He will be discharged. No additional therapy will be ordered. Lab work with possible subclinical hyperthyroidism. Needs to f/u with PCP, possibly endocrinology. Vital Signs Vital signs: Vital Signs Temperature 97.6 F 11/19/24 11:01 Pulse Rate 105 H 11/19/24 11:01 Respiratory Rate 20 11/19/24 11:01 Blood Pressure 103/68 11/19/24 11:01 Pulse Oximetry 98 11/19/24 11:01 Oxygen Delivery Room Air 11/19/24 11:01 Temperature 97.6 F 11/19/24 11:01 Pulse Rate 73 11/19/24 16:50 Respiratory Rate 18 11/19/24 16:50 Blood Pressure 107/70 11/19/24 16:50 Pulse Oximetry 100 11/19/24 16:50 Oxygen Delivery Room Air 11/19/24 11:01 Medical Decision Making Vital Signs Vital Signs: Vital Signs Temperature 97.6 F 11/19/24 11:01 Pulse Rate 105 H 11/19/24 11:01 Respiratory Rate 20 11/19/24 11:01 Blood Pressure 103/68 11/19/24 11:01 Pulse Oximetry 98 11/19/24 11:01 Oxygen Delivery Room Air 11/19/24 11:01 Temperature 97.6 F 11/19/24 11:01 Pulse Rate 73 11/19/24 16:50 Respiratory Rate 18 11/19/24 16:50 Blood Pressure 107/70 11/19/24 16:50 Pulse Oximetry 100 11/19/24 16:50 Oxygen Delivery Room Air 11/19/24 11:01 Lab Data 11/19/24 12:15 11/19/24 12:15 Labs: Lab Results 11/19/24 11/19/24 11/19/24 Range/Units 12:15 14:17 14:18 WBC 9.6 (4.5-10.0) K/mm3 RBC 4.67 (4.6-6.20) M/mm3 Hgb 13.8 L (14.0-18.0) g/dL Hct 42.1 (42.0-52.0) % MCV 90.1 (80-100) fl MCH 29.6 (26-34) pg MCHC 32.8 (32-36) g/dl RDW 15.2 H (11.5-14.5) % Plt Count 274 (150-375) k/mm3 MPV 9.7 (7.4-10.4) fl Immature Gran % (Auto) 0.4 (0-0.5) % Neut % (Auto) 95.7 H (45.5-73.1) % Lymph % (Auto) 2.4 L (18.3-44.2) % Baxter % (Auto) 1.4 L (2.6-8.5) % Eos % (Auto) 0.0 (0-4.4) % Baso % (Auto) 0.1 L (0.2-1.2) % Lymph # (Auto) 0.23 L (0.9-3.2) K/mm3 Baxter # (Auto) 0.1 (0.1-0.6) K/mm3 Eos # (Auto) 0.0 (0-0.3) K/mm3 Baso # (Auto) 0.0 (0.0-0.1) K/mm3 Abs Immat Gran (auto) 0.04 H (0.00-0.031) K/mm3 Absolute Neuts (auto) 9.1 H (1.3-6.7) K/mm3 Absolute Nucleated RBC 0.000 (0.0-0.012) K/mm3 Nucleated RBC % 0.0 (0.0-0.2) % Sodium 134 L (137-145) mmol/L Potassium 4.3 (3.4-5.0) mmol/L Chloride 105 (98-107) mmol/L Carbon Dioxide 25 (22-30) mmol/L Anion Gap 4 (4-12) mmol/L BUN 26 H (9-20) mg/dL Creatinine 0.71 (0.7-1.3) mg/dL Estim Creat Clear Calc 84 ml/min Estimated GFR > 60 (59 - ) Glucose 164 H (65-110) mg/dL Calcium 9.1 (8.4-10.2) mg/dL Total Bilirubin 0.5 (0.2-1.3) mg/dL AST 19 (17-59) U/L ALT 16 (6-50) U/L Alkaline Phosphatase 65 (38-126) U/L Total Protein 6.1 L (6.3-8.2) g/dL Albumin 3.4 L (3.5-5.1) g/dL Lipase 74 (23-300) U/L TSH (Reflex) 0.272 L (0.465-4.68) uIU/mL Free T4 1.14 (0.78-2.19) ng/dL Total T3 0.51 L (0.82-1.58) NG/ML Urine Opiates Screen Negative (Negative) Urine Methadone Screen Negative (Negative) Ur Barbiturates Screen Negative (Negative) Ur Phencyclidine Scrn Negative (Negative) Ur Amphetamine Screen Negative (Negative) U Benzodiazepines Scrn Negative (Negative) Urine Cocaine Screen Negative (Negative) U Cannabinoids Screen Negative (Negative) Ethyl Alcohol < 10 (<10) mg/dL Discharge Plan Discharge Clinical Impression: Depression, Subclinical hyperthyroidism Patient Disposition: Home Condition: Stable Instructions: Depression (ED), Subclinical Hyperthyroidism (ED) Additional Instructions: Follow-up with your primary care doctor for further testing of her thyroid. Return the ER if you have fever 100.4? F, he developed chest pain with shortness of breath, or you have additional concerns. Patient Language: Cuban Prescriptions: No Action prednisone 20 mg tablet 40 mg PO DAILY 7 Days Qty: 14 0RF metformin 1,000 mg tablet 1,000 mg PO BID Jardiance 10 mg tablet 10 mg PO DAILY cyclobenzaprine 10 mg tablet 10 mg PO BID Rx Instructions: #14 0RF naproxen 500 mg tablet See Rx Instructions .ROUTE .COMPLEX Qty: 60 1RF Dose Instruction: TAKE 1 TABLET BY MOUTH TWICE DAILY Rx Instructions: TAKE 1 TABLET BY MOUTH TWICE DAILY Follow-up/Referrals: [facility] [Provider Group] - 1 Week Phoebe,DALY Graham [Primary Care Provider, Unknown] - 1 Week
[2024-11-19 15:14] LABS: Thyroid Stimulating Hormone Reflex 0.272 uIU/mL (0.465-4.68)
--- NOTE | 2024-11-19 15:42 | PC.NURSE ---
Crisis called per EDP request due to patient statements and request for outpatient services.
[2024-11-19 15:56] LABS: Free T4 Free Thyroxine Reflex 1.14 ng/dL (0.78-2.19)
[2024-11-19 16:41] LABS: Total Triiodothyronine (T3) 0.51 NG/ML (0.82-1.58)
[2024-11-19 16:50] VITALS: BP 107/70; PULSE 73; RESP 18; O2SAT 100
== END 2024-11-19 17:38 | disposition home or self-care (01) ==
PROVIDERS: Emergency Provider Emergency Medicine; PCP Physician Assistant
DX: F32.A Depression, unspecified (principal); E05.80 Other thyrotoxicosis without thyrotoxic crisis or storm; F17.210 Nicotine dependence, cigarettes, uncomplicated; E11.9 Type 2 diabetes mellitus without complications; K50.90 Crohn's disease, unspecified, without complications
CPT/HCPCS: 36415; 80053; 80307; 82077; 83690; 84439; 84443; 84480; 85025; 96361; 96374; 99284; J2919; J7030

== ENCOUNTER 2024-12-05 11:50 | Inpatient (IN) | payer BC, SELFPAY ==
--- OUTSIDE RECORDS SUMMARY | 2010-02-11 07:45 | XMS_ITS | Continuity of Care Document ---
Author Organization [facility] Address [address] [place] [address] Phone Care Team Providers Care Letter Of Credit Clerk Name Role Phone Lizarraga OD, Derrell Unavailable [...] Diagnoses Date Provider Providers Copied on Encounter [facility], [address] [place] [address] [address], [place], [place], [address], [place] tel:[phone] [facility] No Information 3-201 0 Lizarraga OD Derrell. [address] [facility] , [address], [place], [place], [facility], . tel:[phone] [facility], [address] [place] [address] [address], [place], [place], [address], [place] tel:[phone] [facility] No Information 5-200 9 Krishnasamy Osbaldo. [address] [facility] [address], [place], [facility], [place]. tel:[phone] Office/outpat ient Visit, Est [facility], [address] [place] [address] [address], [place], [place], [address], [place] tel:[phone] [facility] [place] No Information 0200 9 Marimar Cleary. [address] [facility] [address], [place], [address], [place]. tel:[phone] [facility], [address], [place], [place], [address], [place] tel:[phone] [facility] No Information 7200 9 Paulinajanett Hidalgo. [address] [facility] , [address], [place], [address], [place]. tel:[phone] [facility], [address], [place], [place], [address], [place] tel:[phone] [facility] No Information 1200 7 Wankum Joaquín. [address] [facility] [employer], [facility], [place], [place], [address], [place]. tel:[phone] [facility], [address], [place], [place], [address], [place] tel:[phone] [facility] No Information 4200 7 Wankum Joaquín. [address] [facility], [facility], [place], [place], [address], [place]. tel:[phone] Family History Family Member Type Diagnosis Age At Onset No Information Payers Payer name Insurance type Covered green party ID Carlosjany roderickdeborah(s) [facility] [id number] Social History Type Description Quantity Date Captured [...]
--- OUTSIDE RECORDS SUMMARY | 2010-02-11 07:45 | XMS_ITS | Continuity of Care Document ---
Author Organization [facility] Address [address] [place] [address] Phone Care Team Providers Care Clay Modeler Name Role Phone Lizarraga OD, Derrell Unavailable [...] Diagnoses Date Provider Providers Copied on Encounter [facility], [address] [place] [address] [address], [place], [place], [address], [place] tel:[phone] [facility] No Information 3-201 0 Lizarraga OD Derrell. [address] [facility] , [address], [place], [place], . tel:[phone] [facility], [address] [place] [address] [address], [place], [place], [address], [place] tel:[phone] [facility] No Information 5-200 9 Krishnasamy Osbaldo. [address] [facility] [address], [place], [place], [place]. tel:[phone] Office/outpat ient Visit, Est [facility], [address] [place] [address] [address], [place], [place], [address], [place] tel:[phone] [facility] [place] No Information 0200 9 Marimar Cleary. [address] [facility] [address], [place], [address], [place]. tel:[phone] [facility], [address], [place], [place], [address], [place] tel:[phone] [facility] No Information 7200 9 Paulinajanett Hidalgo. [address] [facility] , [address], [place], [address], [place]. tel:[phone] [facility] [place], [address], [place], [place], [address], [place] tel:[phone] [facility] No Information 1200 7 Wankum Joaquní. [address] [facility] [employer], [facility] A, [place], [place], [address], [place]. tel:[phone] [facility], [address], [place], [place], [address], [place] tel:[phone] [facility] No Information 4200 7 Wankum Joaquín. [address] [facility] Power Holdings[facility] Medical [facility], [facility] A, [place], [place], [address], [place]. tel:[phone] Family History Family Member Type Diagnosis Age At Onset No Information Payers Payer name Insurance type Covered democrat ID Carlosjany roderickdeborah(s) [facility] [id number] Social History Type Description Quantity Date Captured [...]
--- NOTE | ~2024-12-05 | XR_ITS ---
EXAMINATION: XR chest 1V portable COMPARISON: No comparisons available. HISTORY: altered mental status FINDINGS: The lungs are clear, no effusion. No pneumothorax. Heart is normal size. Mediastinal and hilar contours are within normal limits. Remote left rib fractures Miscellaneous: None Impression: No acute cardiopulmonary abnormality. Reviewed, dictated and finalized at location A. Impression: No acute cardiopulmonary abnormality.
--- NOTE | ~2024-12-05 | CT_ITS ---
CT HEAD NON-CONTRAST Clinical History: altered mental status Comparison: None Technique: Unenhanced axial images skull base to vertex Coronal, sagittal reformats CT images acquired with automatic exposure control for dose reduction DLP: 605 mGy-cm Findings: Mild white matter changes, typically chronic microvascular ischemic disease. Sulci, ventricles: Unremarkable. No intracerebral hemorrhage. No evidence acute territorial infarct. No mass effect, midline shift. Bony calvarium intact. Visualized paranasal sinuses: Clear. Mastoid air cells: Clear. IMPRESSION: 1. No acute intracranial findings. Reviewed, dictated and finalized at location R.
--- NOTE | ~2024-12-05 | CT_ITS ---
CT abdomen pelvis w con Clinical History: history of Crohn's . Comparison: 11/18/2024 Technique: Axial images lung bases to symphysis pubis IV contrast information not listed in PACS Coronal, sagittal reformats CT images acquired with automatic exposure control for dose reduction DLP: 292 mGy-cm Findings: Lung bases: Emphysema. Visualized heart and pericardium: Coronary artery calcifications. Liver: Unchanged intrahepatic biliary ductal dilatation. Gallbladder: Contracted around multiple stones as before. Spleen: Unremarkable. Pancreas: Unremarkable. Adrenal glands: Unremarkable. Kidneys: Right kidney- No hydronephrosis. No renal stones. Left kidney- No hydronephrosis. No renal stones. Distal esophagus/stomach: Unremarkable. Small bowel loops: Probable mild proximal duodenal wall thickening. Distal ileal wall thickening. Colon: Scattered wall thickening. Suture line descending segment. Appendix not seen. Unchanged pericolonic focus near suture line likely postoperative, unchanged. Nodes: No enlarged nodes. Peritoneum: No ascites. No free air. Urinary bladder: Unremarkable. Prostate: Unremarkable. Bones: No acute bony abnormality. Soft tissues: Abdominal wall hernia mesh. Aorta: No aneurysm or dissection. IVC: Unremarkable. Main portal vein/SMV/splenic vein: Patent. Extensive surrounding venous network nonetheless, not significantly changed. IMPRESSION: 1. Enterocolitis. No complicating features noted. 2. Non-acute and chronic findings as above. Reviewed, dictated and finalized at location R.
[2024-12-05 12:27] VITALS: BP 105/65; PULSE 93; RESP 16; TEMP 37; O2SAT 99
[2024-12-05 12:46] LABS: Hematocrit 42.7 % (42.0-52.0); Hemoglobin 13.8 g/dL (14.0-18.0); Immature Granulocyte Percent A 0.4 % (0-0.5); Lymphocytes Absolute Auto 0.70 K/mm3 (0.9-3.2); Mean Corpuscular HGB Conc 32.3 g/dl (32-36); Mean Corpuscular Hemoglobin 29.7 pg (26-34); Mean Corpuscular Volume 91.8 fl (80-100); Nucleated Red Blood Cells Absolute Auto 0.000 K/mm3 (0.0-0.012); Nucleated Red Blood Cells Perc 0.0 % (0.0-0.2); Platelet Count Result 240 k/mm3 (150-375); Red Blood Count 4.65 M/mm3 (4.6-6.20); White Blood Count 8.9 K/mm3 (4.5-10.0)
[2024-12-05 12:59] LABS: INR 1.1; Prothrombin Time 14.4 Seconds (11.1-14.7)
[2024-12-05 13:00] LABS: Partial Thromboplastin Time 28.3 Seconds (22.3-36.8)
[2024-12-05 13:02] LABS: Alanine Aminotransferase 17 U/L (6-50); Albumin Level 3.2 g/dL (3.5-5.1); Alkaline Phosphatase 62 U/L (38-126); Anion Gap 5 mmol/L (4-12); Aspartate Amino Transferase 19 U/L (17-59); Bilirubin,Total 0.4 mg/dL (0.2-1.3); Blood Urea Nitrogen 28 mg/dL (9-20); Calcium 8.7 mg/dL (8.4-10.2); Carbon Dioxide 25 mmol/L (22-30); Chloride 107 mmol/L (98-107); Estimated CRCL calculation 99 ml/min; Estimated Glomerular Filt Rate > 60; Potassium 4.0 mmol/L (3.4-5.0); Sodium 137 mmol/L (137-145); Total Protein 5.6 g/dL (6.3-8.2)
[2024-12-05 13:03] LABS: Glucose 59 mg/dL (65-110)
--- NOTE | 2024-12-05 13:08 | ED.AMS ---
HPI - Altered Mental Status General Chief Complaint: Altered Mental Status Stated Complaint: many complaints Time Seen by Provider: 12/05/24 13:06 Source: family Mode of arrival: ambulatory Limitations: altered mental status History of Present Illness HPI narrative: 59 years old white male came to the ED by private car from home with his son telling me that he been having diarrhea once a week for years, today was unable to control it. Also complaining of ringing in the ears when everything so quite around the for unknown duration, memory issue started over 1 year ago and he gradually getting worse. Patient currently is awake, alert, oriented x4. History of Crohn's and diabetes. Patient denies any fever, chills, nausea, vomiting, abdominal pain, back pain, chest pain, shortness of breath. Related Data Home Medications ?Medication ?Instructions ?Recorded ?Confirmed ?Last Taken ?Type empagliflozin 10 mg tablet 10 mg PO DAILY 08/27/23 10/29/23 Unknown History (Jardiance) metformin 1,000 mg tablet 1,000 mg PO BID 08/27/23 10/29/23 Unknown History cyclobenzaprine 10 mg tablet 10 mg PO BID 09/15/23 10/29/23 Unknown History Allergies Allergy/AdvReac Type Severity Reaction Status Date / Time No Known Allergies Allergy Verified 11/19/24 11:36 Review of Systems Review of Systems: All systems reviewed & are unremarkable except as noted in HPI and below PMFSH Past Medical History Medical History Crohn disease Diabetes Surgical History Surgical History History of partial colectomy Hx of repair of right rotator cuff DOS unknown- Dr. 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 Musculoskeletal: Normal range of motion, nontender back Neurologic: Alert and oriented ?3, VOLTAGE TESTER is normal as tested, no gross motor deficit Course Consultations Consultation #1: dr yu Admit to hospitalist Date: 12/05/24 Vital Signs Vital signs: Vital Signs Temperature 37.0 C 12/05/24 12:27 Pulse Rate 93 12/05/24 12:27 Respiratory Rate 16 12/05/24 12:27 Blood Pressure 105/65 12/05/24 12:27 Pulse Oximetry 99 12/05/24 12:27 Temperature 37.0 C 12/05/24 12:27 Pulse Rate 93 12/05/24 12:27 Respiratory Rate 16 12/05/24 12:27 Blood Pressure 105/65 12/05/24 12:27 Pulse Oximetry 99 12/05/24 12:27 MDM - Altered Mental Status MDM Narrative Medical decision making narrative: Patient came with uncontrolled diarrhea, tinnitus, memory issues. Vital signs are stable Physical examination showing that the patient awake, alert oriented x4, poor historian, is telling me that he does not remember for any other questions. Differential diagnosis include progressive dementia, electrolyte imbalance, dehydration, Crohn's flare, urinary tract infection Blood workup today includes CBC, CMP, lipase showed glucose 59, otherwise within normal limit Urinalysis positive for infection CT abdomen and pelvis with IV contrast showed enterocolitis CT head without contrast showed no acute abnormality, Chest x-ray showed no acute abnormality Diagnosis urinary tract infection, diarrhea, enterocolitis, history of Crohn's, worsening confusion Admit to hospitalist discussed with Dr. Yu Differential Diagnosis Differential diagnosis: Likely other ( as above) Medical Records Attestation: I reviewed the patient's medical records. Lab Data Attestation: I reviewed the patient's lab results. 12/05/24 12:41 12/05/24 12:41 Labs: Lab Results 12/05/24 12/05/24 12/05/24 Range/Units 12:41 13:08 13:49 WBC 8.9 (4.5-10.0) K/mm3 RBC 4.65 (4.6-6.20) M/mm3 Hgb 13.8 L (14.0-18.0) g/dL Hct 42.7 (42.0-52.0) % MCV 91.8 (80-100) fl MCH 29.7 (26-34) pg MCHC 32.3 (32-36) g/dl RDW 15.3 H (11.5-14.5) % Plt Count 240 (150-375) k/mm3 MPV 9.6 (7.4-10.4) fl Immature Gran % (Auto) 0.4 (0-0.5) % Neut % (Auto) 84.4 H (45.5-73.1) % Lymph % (Auto) 7.8 L (18.3-44.2) % Fisher % (Auto) 6.7 (2.6-8.5) % Eos % (Auto) 0.3 (0-4.4) % Baso % (Auto) 0.4 (0.2-1.2) % Lymph # (Auto) 0.70 L (0.9-3.2) K/mm3 Fisher # (Auto) 0.6 (0.1-0.6) K/mm3 Eos # (Auto) 0.0 (0-0.3) K/mm3 Baso # (Auto) 0.0 (0.0-0.1) K/mm3 Abs Immat Gran (auto) 0.04 H (0.00-0.031) K/mm3 Absolute Neuts (auto) 7.5 H (1.3-6.7) K/mm3 Absolute Nucleated RBC 0.000 (0.0-0.012) K/mm3 Nucleated RBC % 0.0 (0.0-0.2) % PT 14.4 (11.1-14.7) Seconds INR 1.1 APTT 28.3 (22.3-36.8) Seconds Sodium 137 (137-145) mmol/L Potassium 4.0 (3.4-5.0) mmol/L Chloride 107 (98-107) mmol/L Carbon Dioxide 25 (22-30) mmol/L Anion Gap 5 (4-12) mmol/L BUN 28 H (9-20) mg/dL Creatinine 0.71 (0.7-1.3) mg/dL Estim Creat Clear Calc 99 ml/min Estimated GFR > 60 (59 - ) Glucose 59 L* (65-110) mg/dL POC Capillary Glucose 119 H (65-105) mg/dl Lactic Acid 2.4 H (0.7-2.0) mmol/L Calcium 8.7 (8.4-10.2) mg/dL Total Bilirubin 0.4 (0.2-1.3) mg/dL AST 19 (17-59) U/L ALT 17 (6-50) U/L Alkaline Phosphatase 62 (38-126) U/L Total Protein 5.6 L (6.3-8.2) g/dL Albumin 3.2 L (3.5-5.1) g/dL Urine Color Yellow (Yellow) Urine Appearance Cloudy H (Clear) Urine pH 5.0 (5.0-9.0) Ur Specific [place] 1.044 H (1.001-1.035) Urine Protein Negative (Negative) mg/dL Urine Glucose (UA) 3+ H (Negative) mg/dL Urine Ketones Trace H (Negative) mg/dL Ur Blood (Man) Negative (Negative) Urine Nitrate Positive H (Negative) Urine Bilirubin Negative (Negative) Urine Urobilinogen 1.0 (<2.0) mg/dL Add Ur Microanalysis Reviewed Leukocyte Esterase Rfl Negative (Negative) HERMINIO/UL Urine RBC 0-2 (0-2) /hpf Urine WBC 6-10 H (0-3) /hpf Ur Squamous Epith Cells None seen (Few) /hpf Urine Bacteria 4+ H /hpf Urine Casts 0-2 12/05/24 Range/Units 14:52 WBC (4.5-10.0) K/mm3 RBC (4.6-6.20) M/mm3 Hgb (14.0-18.0) g/dL Hct (42.0-52.0) % MCV (80-100) fl MCH (26-34) pg MCHC (32-36) g/dl RDW (11.5-14.5) % Plt Count (150-375) k/mm3 MPV (7.4-10.4) fl Immature Gran % (Auto) (0-0.5) % Neut % (Auto) (45.5-73.1) % Lymph % (Auto) (18.3-44.2) % Fisher % (Auto) (2.6-8.5) % Eos % (Auto) (0-4.4) % Baso % (Auto) (0.2-1.2) % Lymph # (Auto) (0.9-3.2) K/mm3 Fisher # (Auto) (0.1-0.6) K/mm3 Eos # (Auto) (0-0.3) K/mm3 Baso # (Auto) (0.0-0.1) K/mm3 Abs Immat Gran (auto) (0.00-0.031) K/mm3 Absolute Neuts (auto) (1.3-6.7) K/mm3 Absolute Nucleated RBC (0.0-0.012) K/mm3 Nucleated RBC % (0.0-0.2) % PT (11.1-14.7) Seconds INR APTT (22.3-36.8) Seconds Sodium (137-145) mmol/L Potassium (3.4-5.0) mmol/L Chloride (98-107) mmol/L Carbon Dioxide (22-30) mmol/L Anion Gap (4-12) mmol/L BUN (9-20) mg/dL Creatinine (0.7-1.3) mg/dL Estim Creat Clear Calc ml/min Estimated GFR (59 - ) Glucose (65-110) mg/dL POC Capillary Glucose (65-105) mg/dl Lactic Acid 2.1 H (0.7-2.0) mmol/L Calcium (8.4-10.2) mg/dL Total Bilirubin (0.2-1.3) mg/dL AST (17-59) U/L ALT (6-50) U/L Alkaline Phosphatase (38-126) U/L Total Protein (6.3-8.2) g/dL Albumin (3.5-5.1) g/dL Urine Color (Yellow) Urine Appearance (Clear) Urine pH (5.0-9.0) Ur Specific [place] (1.001-1.035) Urine Protein (Negative) mg/dL Urine Glucose (UA) (Negative) mg/dL Urine Ketones (Negative) mg/dL Ur Blood (Man) (Negative) Urine Nitrate (Negative) Urine Bilirubin (Negative) Urine Urobilinogen (<2.0) mg/dL Add Ur Microanalysis Leukocyte Esterase Rfl (Negative) HERMINIO/UL Urine RBC (0-2) /hpf Urine WBC (0-3) /hpf Ur Squamous Epith Cells (Few) /hpf Urine Bacteria /hpf Urine Casts Imaging Data Radiologist's impression: Impressions Head CT 12/05/24 13:46 IMPRESSION: 1. No acute intracranial findings. Chest X-Ray 12/05/24 14:24 Impression: No acute cardiopulmonary abnormality. Abdomen/Pelvis CT 12/05/24 14:33 IMPRESSION: 1. Enterocolitis. No complicating features noted. 2. Non-acute and chronic findings as above. Critical Care Time Critical Care Time Critical Care Time: No Discharge Plan Discharge Clinical Impression: Urinary tract infection, Tinnitus, History of Crohn's disease, Memory deficit, Diarrhea Patient Disposition: Still a Patient Condition: Stable Patient Language: Croatian Prescriptions: No Action prednisone 20 mg tablet 40 mg PO DAILY 7 Days Qty: 14 0RF metformin 1,000 mg tablet 1,000 mg PO BID Jardiance 10 mg tablet 10 mg PO DAILY cyclobenzaprine 10 mg tablet 10 mg PO BID Rx Instructions: #14 0RF naproxen 500 mg tablet See Rx Instructions .ROUTE .COMPLEX Qty: 60 1RF Dose Instruction: TAKE 1 TABLET BY MOUTH TWICE DAILY Rx Instructions: TAKE 1 TABLET BY MOUTH TWICE DAILY Follow-up/Referrals: Phoebe,DALY Graham [Primary Care Provider, Unknown]
[2024-12-05] MEDS: DEXTROSE 50% 25 GM/50 ML SYRINGE IV PUSH (13:09)
[2024-12-05 13:25] LABS: Add Urine Microscopic? YES; Appearance Urine Cloudy (Clear); Glucose Urine UA 3+ mg/dL (Negative); Leukocyte Esterase Ur Negative LEU/UL (Negative); Need Manual Microscopic Reviewed; Nitrate Urine Positive (Negative); Non Pathogenic Casts 0-2; Specific Grav Ur 1.044 (1.001-1.035)
--- OUTSIDE RECORDS SUMMARY | 2024-12-05 13:50 | XMS_ITS | Clinical Summary ---
Author Organization [facility] Address [address] [place] [address] Care Team Providers Care Customer Service Security Officer Name Role Phone Gladys Delgado Primary Care Pr ovider Source Comments [facility],non-owned Affiliates and Associated Physician Practices is amultiple site organization consisting of ambulatory clinics and hospital sitesin [place], [place], [place] and [place]. This disclosure is being madepursuant to the Care Everywhere program and may not contain all information available regarding this patient. 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 Here today for colonoscopy to [...] by the physician, the nurse and the cartography/mapping technician. The procedure was verified in the [...] as scheduled. Procedure Code(s): --- Professional --- 99843, Colonoscopy, flexible, proximal to splenic flexure; with biopsy, single or multiple --- Technical --- 07628, Colonoscopy, flexible, proximal to splenic flexure; with biopsy, single or multiple Diagnosis Code(s): --- Professional --- 555.9, Regional enteritis of unspecified site --- Technical --- 555.9, Regional enteritis of unspecified site CPT copyright 2013 [employer]. All rights reserved. The codes documented in this report are preliminary and upon tnt line supervisor review may be revised to meet current compliance requirements. Attending Participation: I was present and participated during the entire procedure, including non-cooley portions. ____ Catalina Verma MD 11/22/2014 12:10 PM Number of Addenda: 0 Note Initiated On: 11/22/2014 10:46 AM [facility] 11/22/2014 10:4 6 AM CDT us Catalina Verma MD GI PROCEDURE ORDERABLES Ed ited Result - Final [facility] from Last 3 Months or Most Recently Relevant to Health Maintenance Insurance MEDICAID - [place] Care Teams Customer Service Security Officer Relationship Specialty Start Date End Date Gladys Delgado PA PCP - General Physician Flush Tester 11/22/14
[2024-12-05] MEDS: cefTRIAXone 1 GM in SODIUM CHLORIDE 0.9% IV 50 ML 100 ML IVPB (14:05)
[2024-12-05] MEDS: SODIUM CHLORIDE 0.9% IV 1,000 ML 999 ML IV CONT (14:52)
--- NOTE | 2024-12-05 14:52 | P.HP_ITS ---
H&P: HPI History of Present Illness Date/Time: 12/05/24 14:52 Chief Complaint: Altered mental status Narrative: 59-year-old male history of Crohn's disease and diabetes presents with altered mental status and severe diarrhea. Patient has several complaints per the ED note of chronic diarrhea, ringing in ears memory issues, which have been going on for about a year. Lab work in the ED shows hemoglobin 13.8, glucose of 59, UA positive for nitrates, negative for leukocyte esterase, 6-10 wbc's 4+ bacteria. Patient started on IV Rocephin. Review of Systems Review of Systems: 12 systems were reviewed and are negativ e except for as per HPI. [facility] Past Medical History Medical History Crohn disease Diabetes Surgical History Surgical History History of partial colectomy Hx of repair of right rotator cuff DOS unknown- Dr. Lawson Family History Family History Unknown Asthma Cerebrovascular accident Depression Diabetes mellitus Lung cancer Social History Social History Social History: caffeine use Smoking packs per day: 2 Smoking cigarettes per day: 40.0 Smoking status: Current every day smoker Tobacco type: cigarettes Alcohol intake: never Substance use: never Substance use type: does not use Lack of Transportation: No Lack of Food: Sometimes True Current Housing: I Do Not Have Housing Concerned About Future Housing: YES Difficulty Paying Gas/Electric Bills: YES Difficulty Paying for Meds: No Currently Unemployed: No Education: High School Diploma/GED Difficulty w/ Childcare or Family Care: No Living arrangements: with family Occupation/Education: occupation 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 [employer] Gender identity (if verbalized by the patient): Male Spiritual care concerns: No Meds Home Medications and Allergies Home Medications ?Medication ?Instructions ?Recorded ?Confirmed ?Type empagliflozin 10 mg tablet 10 mg PO DAILY 08/27/2312/13 History (Jardiance) metformin 1,000 mg tablet 1,000 mg PO BID 08/27/2312/13 History cyclobenzaprine 10 mg tablet 10 mg PO BID 09/15/2312/13 History naproxen 500 mg tablet See Rx Instructions .Route 0 11/06/24 Rx .COMPLEX #60 tabs prednisone 20 mg tablet 40 mg (2 x 20 mg) PO DAILY 7 days 11/18/24 Rx #14 tabs Allergies Allergy/AdvReac Type Severity Reaction Status Date / Time No Known Allergies Allergy Verified 11/19/24 11:36 Vital Signs Vital Signs - 24 hr 12/05/24 12:27 Temperature 98.6 F Pulse Rate 93 Respiratory Rate 16 Blood Pressure 105/65 Pulse Oximetry 99 Exam Narrative: General: well appearing, appears stated age. Patient HEENT: normocephalic, atraumatic. Mucous membranes moist. EOMI, PERRLA, bilateral sclera anicteric, no conjunctival injection. Neck supple without JVD, lymphadenopathy, or bruit. Respiratory: clear to ascultation bilaterally. No rales/rhonic/wheezes. Cardiovascular: Regular rate and rhythm, normal S1-S2 upon ascultation. No murmurs, rubs, or clicks. PMI is nondisplaced, capillary refill less than 3 second. Abdomen: Soft, round, no pulsatile masses, nondistended and nontender. No rebound, no guarding. No CVA tenderness, no hepatosplenomegaly. Bowel sounds present to all four quadrants. No high pitch or tinkling sounds, resonant to percussion. Extremities: No cyanosis, clubbing, or edema present. Pulses are palpable 2/2. Active ROM to all four extremities. Neuro: Alert and orientated x 4. PERRLA. Cranial nerves 2-12 intact without focal deficit. Skin: Warm, dry, and intact, without rash, erythema, or lesion. Psych: Tearful, anxious H&P: Results Labs Labs: Short CBC 12/05/24 Range/Units 12:41 WBC 8.9 (4.5-10.0) K/mm3 Hgb 13.8 L (14.0-18.0) g/dL Hct 42.7 (42.0-52.0) % Plt Count 240 (150-375) k/mm3 BMP 12/05/24 12:41 Sodium 137 Potassium 4.0 Chloride 107 Carbon Dioxide 25 BUN 28 H Creatinine 0.71 Glucose 59 L* Calcium 8.7 Liver Function 12/05/24 Range/Units 12:41 Total Bilirubin 0.4 (0.2-1.3) mg/dL AST 19 (17-59) U/L ALT 17 (6-50) U/L Alkaline Phosphatase 62 (38-126) U/L Albumin 3.2 L (3.5-5.1) g/dL Urine 12/05/24 Range/Units 13:08 Urine Color Yellow (Yellow) Urine Appearance Cloudy H (Clear) Urine pH 5.0 (5.0-9.0) Ur Specific [place] 1.044 H (1.001-1.035) Urine Protein Negative (Negative) mg/dL Urine Glucose (UA) 3+ H (Negative) mg/dL Assessment and Plan Assessment and plan (1) Enterocolitis: Code(s): K52.9 - Noninfective gastroenteritis and colitis, unspecified Status: Acute Assessment and Plan: Unmanage Crohn's disease GI consulted Stool in C diff sample pending IVF for hydration Okay for clear liquids Bowel prep NPO in the morning Plan for colonoscopy in the morning (2) Urinary tract infection: Code(s): N39.0 - Urinary tract infection, site not specified Status: Acute Assessment and Plan: IVF IV Rocephin Culture and sensitivity pending (3) Hypoglycemia: Code(s): E16.2 - Hypoglycemia, unspecified Status: Acute Assessment and Plan: D5 NS Accu-Cheks q.6 (4) Memory deficit: Code(s): R41.3 - Other amnesia Status: Acute Assessment and Plan: Patient does not appear to be altered he is aware of his medical history and medications A&O x4 (5) Diabetes: Code(s): E11.9 - Type 2 diabetes mellitus without complications Status: Acute Assessment and Plan: Patient currently has hypoglycemia likely related to poor absorption due to Crohn's flare and taking oral anti hyperglycemics Hold home medications Quality VTE Prophylaxis VTE prophylaxis: mechanical ordered If No VTE Prophylaxis Answer both mechanical and pharmacologic: Reason no pharmacologic proph: medical contraindication Hospitalist MIPS Advance Care Plan I have confirmed that the patient's Advanced Care Plan is present, code status is documented, or surrogate decision maker is listed in patient medical record.: Yes Medication Reconciliation I have utilized all available resources to obtain, update and review the patients current medications (includes all prescriptions, OTC, herbals, canna bis, and nutritional supplements).: Yes
[2024-12-05] MEDS: SODIUM CHLORIDE 0.9% IV 1,000 ML 100 ML IV CONT (14:59)
--- OUTSIDE RECORDS SUMMARY | 2024-12-05 15:00 | XMS_ITS | Clinical Summary ---
Author Organization [facility] Address [address] [place] [address] Care Team Providers Care Nurse Practitioner Adult Name Role Phone Gladys Delgado Primary Care Pr ovider Source Comments [facility],non-owned Affiliates and Associated Physician Practices is amultiple site organization consisting of ambulatory clinics and hospital sitesin [place], [place], [place] and [place]. This disclosure is being madepursuant to the Care Everywhere program and may not contain all information available regarding this patient. Last updated 17.[facility] Left of the [employer] 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 Here today for colonoscopy to [...] by the physician, the nurse and the manufacturing process technician. The procedure was verified in the [...] as scheduled. Procedure Code(s): --- Professional --- 14927, Colonoscopy, flexible, proximal to splenic flexure; with biopsy, single or multiple --- Technical --- 93407, Colonoscopy, flexible, proximal to splenic flexure; with biopsy, single or multiple Diagnosis Code(s): --- Professional --- 555.9, Regional enteritis of unspecified site --- Technical --- 555.9, Regional enteritis of unspecified site CPT copyright 2013 [employer]. All rights reserved. The codes documented in this report are preliminary and upon business practices officer review may be revised to meet current compliance requirements. Attending Participation: I was present and participated during the entire procedure, including non-cooley portions. ____ Catalina Verma MD 11/22/2014 12:10 PM Number of Addenda: 0 Note Initiated On: 11/22/2014 10:[address] [facility] 11/22/2014 10:4 6 AM CDT us Catalina Verma MD GI PROCEDURE ORDERABLES Ed ited Result - Final [facility] from Last 3 Months or Most Recently Relevant to Health Maintenance Insurance MEDICAID - [facility] Care Teams Nurse Practitioner Adult Relationship Specialty Start Date End Date Gladys Delgado PA PCP - General Physician Back Up Machine Operator 11/22/14
[2024-12-05 16:00] VITALS: BP 115/60; PULSE 94; RESP 18; TEMP 36.8; O2SAT 100
[2024-12-05 16:22] VITALS: BMI 19.6
--- NOTE | 2024-12-05 16:22 | ADMGEN ---
This patient, Jose C oMrtensen, was admitted to Medical Room 247-. Patient/family oriented to hospital policies and general routines including ID bracelet, bed and alarms, visiting hours, pain management, procedures, bathroom and other care routines, personal items, smoking policy, room service/diet, and visiting hours. Information on how to activate the Rapid Response Team has been discussed. Patient/Family are encouraged to report perceived risks to care and to ask questions if they do not understand what they are told or what they should do.
--- NOTE | 2024-12-05 17:48 | P.CONGI_ITS ---
Assessment and Plan Assessment and plan (1) History of Crohn's disease: Code(s): Z87.19 - Personal history of other diseases of the digestive system Status: Acute Assessment and Plan: The patient's history of Crohn's disease appears to be unmanaged, as evidenced by intermittent treatment. The elevated bzhuhmocfc-[id number] ratio is a finding suggestive of ongoing disease activity. To complete the non-invasive baseline assessment, we will order CRP and stool calprotectin. However, a colonoscopy is the definitive next step to assess the extent and severity of the disease and is scheduled for tomorrow. We will determine the most appropriate therapy based on the colonoscopy findings. GI Consult Note Consult date/time: 12/05/24 17:48 Reason for consult: Chronic diarrhea -history of Crohn's disease HPI: Jose C Mortensen is a 59-year-old male with a history of diabetes and Crohn's disease. He was diagnosed with Crohn's over 15 years ago following a severe episode of abdominal pain and possible obstruction that required a bowel resection. The patient is unable to provide details regarding his surgical history or anatomy, and previous records are unavailable. His treatment has been intermittent, and he last used Humira approximately one year ago but stopped due to insurance and financial constraints. The patient was admitted today for weakness, mental confusion, and a worsening of chronic, intermittent diarrhea. He reports that over the past five days, he has experienced a significant increase in the frequency of his diarrhea, accompanied by new-onset crampy abdominal pain. Two weeks prior to this admission, he was seen in the emergency room for the same complaints and was discharged with symptomatic medication. He denies rectal bleeding, unintentional weight loss, melena, or hematemesis. A urinalysis on admission was positive for 4+ bacteria, and he is currently receiving intravenous ceftriaxone. Laboratory data on admission showed: White count 8.9, hemoglobin 13.8, platelet count 240, absolute neutrophil count 7.5, absolute lymphocyte count 0.7, neutrophil to lymphocyte ratio = 10.7 BUN 28, creatinine 0.71, lactic acid 2.1, albumin 3.2 CT scan of the abdomen shows mid/proximal small bowel wall thickening and suture line and the descending colon. [facility] Past Medical History Medical History Crohn disease Diabetes Surgical History Surgical History History of partial colectomy Hx of repair of right rotator cuff DOS unknown- Dr. Lawson Family History Family History Unknown Asthma Cerebrovascular accident Depression Diabetes mellitus Lung cancer Social History Social History Social History: caffeine use Smoking packs per day: 2 Smoking cigarettes per day: 40.0 Smoking status: Current every day smoker Tobacco type: cigarettes Alcohol intake: never Substance use: never Substance use type: does not use Lack of Transportation: No Lack of Food: Sometimes True Current Housing: I Do Not Have Housing Concerned About Future Housing: YES Difficulty Paying Gas/Electric Bills: YES Difficulty Paying for Meds: No Currently Unemployed: No Education: High School Diploma/GED Difficulty w/ Childcare or Family Care: No Living arrangements: with family Occupation/Education: occupation 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 [employer] Gender identity (if verbalized by the patient): Male Spiritual care concerns: No Meds Home Medications and Allergies Home Medications ?Medication ?Instructions ?Recorded ?Confirmed ?Type empagliflozin 10 mg tablet 10 mg PO DAILY 08/27/2312/13 History (Jardiance) metformin 1,000 mg tablet 1,000 mg PO BID 08/27/2312/13 History cyclobenzaprine 10 mg tablet 10 mg PO BID 09/15/2312/13 History naproxen 500 mg tablet See Rx Instructions .Route 0 11/06/24 Rx .COMPLEX #60 tabs prednisone 20 mg tablet 40 mg (2 x 20 mg) PO DAILY 7 days 11/18/24 Rx #14 tabs Allergies Allergy/AdvReac Type Severity Reaction Status Date / Time No Known Allergies Allergy Verified 11/19/24 11:36 Vital Signs Vital Signs - 24 hr 12/05/24 12:27 12/05/24 16:00 Temperature 98.6 F 98.3 F Pulse Rate 93 94 Respiratory Rate 16 18 Blood Pressure 105/65 115/60 Pulse Oximetry 99 100 Exam 2 Narrative: oriented x3, cooperative. Looks chronically ill. Chest and lungs: Clear. Abdomen: Large vertical midline scar. Bowel sounds present, soft, nontender, no hepatomegaly, no masses. Rest of exam within normal limits. Results Labs 12/05/24 12:41 12/05/24 12:41 Labs: Short CBC 12/05/24 Range/Units 12:41 WBC 8.9 (4.5-10.0) K/mm3 Hgb 13.8 L (14.0-18.0) g/dL Hct 42.7 (42.0-52.0) % Plt Count 240 (150-375) k/mm3 BMP 12/05/24 12:41 Sodium 137 Potassium 4.0 Chloride 107 Carbon Dioxide 25 BUN 28 H Creatinine 0.71 Glucose 59 L* Calcium 8.7 Liver Function 12/05/24 Range/Units 12:41 Total Bilirubin 0.4 (0.2-1.3) mg/dL AST 19 (17-59) U/L ALT 17 (6-50) U/L Alkaline Phosphatase 62 (38-126) U/L Albumin 3.2 L (3.5-5.1) g/dL Urine 12/05/24 Range/Units 13:08 Urine Color Yellow (Yellow) Urine Appearance Cloudy H (Clear) Urine pH 5.0 (5.0-9.0) Ur Specific [place] 1.044 H (1.001-1.035) Urine Protein Negative (Negative) mg/dL Urine Glucose (UA) 3+ H (Negative) mg/dL
[2024-12-05 18:13] LABS: CRP 1.4 mg/dL (<1.0)
[2024-12-05] MEDS: DEXTROSE 5%/0.9% SOD CHL 1,000 ML 50 ML IV CONT (18:38)
[2024-12-05] MEDS: NICOTINE (*PBKC) 21 MG PATCH 1 PATCH TRANSDERM (20:43)
[2024-12-05 21:01] VITALS: BP 121/62; PULSE 54; RESP 18; TEMP 36.4; O2SAT 99
[2024-12-05 22:10] VITALS: O2SAT 98
[2024-12-06] VITALS (7 sets, daily range): BP systolic 106–130; BP diastolic 56–66; PULSE 50–60; RESP 14–20; TEMP 36.3–36.5; O2SAT 98–100; BMI 19.6
[2024-12-06 00:16] LABS: IFOB Positive Control Positive; Immunochemical Fecal Occult Bl Positive (N)
[2024-12-06 00:43] LABS: Toxigenic C. Diff NEGATIVE (NEGATIVE)
[2024-12-06 05:06] LABS: Hematocrit 48.5 % (42.0-52.0); Hemoglobin 14.9 g/dL (14.0-18.0); Immature Granulocyte Percent A 0.4 % (0-0.5); Immature Platelet Fraction Pct 4.8 % (0.9-11.2); Lymphocytes Absolute Auto 0.81 K/mm3 (0.9-3.2); Mean Corpuscular HGB Conc 30.7 g/dl (32-36); Mean Corpuscular Hemoglobin 29.6 pg (26-34); Mean Corpuscular Volume 96.4 fl (80-100); Nucleated Red Blood Cells Absolute Auto 0.000 K/mm3 (0.0-0.012); Nucleated Red Blood Cells Perc 0.0 % (0.0-0.2); Platelet Count Result 216 k/mm3 (150-375); Red Blood Count 5.03 M/mm3 (4.6-6.20); White Blood Count 8.2 K/mm3 (4.5-10.0)
[2024-12-06 05:14] LABS: Anion Gap 7 mmol/L (4-12); Blood Urea Nitrogen 15 mg/dL (9-20); Calcium 8.1 mg/dL (8.4-10.2); Carbon Dioxide 22 mmol/L (22-30); Chloride 104 mmol/L (98-107); Estimated CRCL calculation 115 ml/min; Estimated Glomerular Filt Rate > 60; Glucose 166 mg/dL (65-110); Potassium 4.4 mmol/L (3.4-5.0); Sodium 133 mmol/L (137-145)
[2024-12-06] MEDS: ACETAMINOPHEN 325 MG TABLET 650 MG PO (05:25)
--- NOTE | 2024-12-06 07:45 | P.PNIM_ITS ---
Progress Note: A&P Assessment and Plan (1) Enterocolitis: Code(s): K52.9 - Noninfective gastroenteritis and colitis, unspecified Status: Acute Assessment and Plan: Symptoms: uncontrollable diarrhea Diagnosed with Crohn's over 15 years ago following a severe episode of abdominal pain and possible obstruction that required a bowel resection. His treatment has been intermittent, and he last used Humira approximately one year ago but stopped due to insurance and financial constraints. Stool occult positive, H/H remains stable C diff sample ordered Stool culture pending Gentle IV fluid resuscitation Monitor vital signs, I&Os, track stool output, watch for bloody stools, neuro status and patient is a fall risk Monitor serum electrolytes and CBC GI consulted for unmanaged crohns disease CRP elevated and stool calprotectin pending Colonoscopy is the definitive next step to assess the extent and severity of the disease (2) Urinary tract infection: Code(s): N39.0 - Urinary tract infection, site not specified Status: Acute Assessment and Plan: - UA: cloudy appearance with 3+ glucose, trace ketones, positive nitrates, negative leukocytes, 4+ bacteria - UC obtained on 12/05: pending - No previous micro to be reviewed - started on rocephin on 12/05 (3) Hypoglycemia: Code(s): E16.2 - Hypoglycemia, unspecified Status: Acute Assessment and Plan: Glucose 63 on admission, started on D5NS at that time Hypoglycemia likely related to poor oral intake and malabsorption related to crohns - Remains on D5NS 50 ml/hr at this time, will likely DC following the colonoscopy when diet resumed - hypoglycemia protocol - POC blood glucose ACHS - home medication - metformin and empagliflozin currently on hold - monitor glucose levels (4) Memory deficit: Code(s): R41.3 - Other amnesia Status: Acute Assessment and Plan: Patient does not appear to be altered he is aware of his medical history and medications A&O x4 Head CT unremarkable (5) Severe protein-calorie malnutrition: Code(s): E43 - Unspecified severe protein-calorie malnutrition Status: Acute Assessment and Plan: Supplement per nutrition Time Spent With Patient Time with patient: 25 - 35 minutes Subjective Date/time seen: 12/06/24 07:45 Interval history: 59 year old male with past medical history of diabetes and crohns disease presents to the hospital for diarrhea. Patient is pleasant sitting up on the side of the bed. Patient continues to diarrhea and is scheduled to have a colonoscopy later today. He has no other complaints denying chest pain, shortness a breath, palpitations, nausea/vomiting, abdominal pain, and UTI symptoms. Patient does note that he has had at least an 18 lb weight loss in approximately 3 months likely related to his diminished appetite. Nutrition consulted and will supplement further recommendations. Review of Systems Review of Systems: All systems reviewed & are unremarkable except as noted in HPI and below Exam Narrative: AF HR 52 RR 18 Spo2 100 BP 110/57 General: male in no acute respiratory distress who is nontoxic appearing, sitting up HEENT: Normocephalic. Atraumatic. Extraocular movement intact. Sclera clear and anicteric. No facial asymmetry. Chest: Lungs are clear to auscultation bilaterally. CV: Heart was regular rate and rhythm. Abd: Abdomen was soft. Nontender. Nondistended. Positive bowel sounds. Ext: No clubbing, cyanosis, or edema. Neuro: Patient is alert and oriented x4. Speech is clear. Objective Data Vital Signs Vital Signs: Vital Signs - 24 hr 12/05/24 12:27 12/05/24 16:00 12/05/24 20:00 Temperature 98.6 F 98.3 F Pulse Rate 93 94 Respiratory Rate 16 18 Blood Pressure 105/65 115/60 Pulse Oximetry 99 100 Oxygen Delivery Room Air 12/05/24 21:01 12/05/24 22:10 12/06/24 06:00 Temperature 97.5 F L 97.5 F L Pulse Rate 54 L 60 Respiratory Rate 18 18 Blood Pressure 121/62 114/61 Pulse Oximetry 99 98 100 Oxygen Delivery Room Air Intake/Output Intake/Output: Intake & Output 12/03/24 12/04/24 12/05/24 12/06/24 23:59 23:59 23:59 23:59 Intake Total 1185.5 0 Balance 1185.5 0 Meds/Results Medications: Active Medications Generic Name Dose Route Start Last Admin Trade Name Freq PRN Reason Stop Dose Admin Acetaminophen 650 mg 12/05/24 15:12 12/06/24 05:25 Acetaminophen 325 Mg Tablet PO 650 mg Q4H PRN Administration Mild Pain (1-3) or Fever Dextrose 12.5 gm 12/05/24 13:04 Dextrose 50% 25 Gm/50 Ml Syringe IV PUSH PRN PRN Hypoglycemia Protocol Glucagon 1 mg 12/05/24 13:04 Glucagon For Inj 1 Mg Vial IM PRN PRN Hypoglycemia Protocol Glucose 15 gm 12/05/24 13:04 Glucose Oral Gel 15 Gm Of Glucse In 37.5 Gm Tube PO PRN PRN Hypoglycemia Protocol Dextrose 1,000 mls @ 100 mls/hr 12/05/24 13:04 Dextrose 5% 1,000 Ml IVPB PRN PRN Hypoglycemia Protocol Ceftriaxone Sodium 1 gm/ 50 mls @ 100 mls/hr 12/06/24 09:00 Sodium Chloride IVPB Q24H PARRISH Dextrose/Sodium Chloride 1,000 mls @ 50 mls/hr 12/05/24 18:15 12/05/24 18:38 Dextrose 5% Sodium Chloride 0.9% IV CONT 50 mls/hr .Q20H PARRISH Administration Nicotine 1 patch 12/05/24 20:00 12/05/24 20:43 Nicotine (*Pbkc) 21 Mg Patch TRANSDERM 1 patch DAILY PARRISH Administration Nicotine Polacrilex 4 mg 12/05/24 19:59 Nicotine (*Pbkc) 4 Mg Gum PO PRN PRN Nicotine Cravings Radiology Results: ITS Impressions Head CT 12/05/24 13:46 IMPRESSION: 1. No acute intracranial findings. Chest X-Ray 12/05/24 14:24 Impression: No acute cardiopulmonary abnormality. Abdomen/Pelvis CT 12/05/24 14:33 IMPRESSION: 1. Enterocolitis. No complicating features noted. 2. Non-acute and chronic findings as above. Labs Labs: Laboratory Results - last 24 hr 12/05/24 12/05/24 12/05/24 12:40 12:41 13:08 WBC 8.9 RBC 4.65 Hgb 13.8 L Hct 42.7 MCV 91.8 MCH 29.7 MCHC 32.3 RDW 15.3 H Plt Count 240 MPV 9.6 Immature Gran % (Auto) 0.4 Neut % (Auto) 84.4 H Lymph % (Auto) 7.8 L [place] % (Auto) 6.7 Eos % (Auto) 0.3 Baso % (Auto) 0.4 Lymph # (Auto) 0.70 L [place] # (Auto) 0.6 Eos # (Auto) 0.0 Baso # (Auto) 0.0 Abs Immat Gran (auto) 0.04 H Absolute Neuts (auto) 7.5 H Absolute Nucleated RBC 0.000 Nucleated RBC % 0.0 % Immature Plt Fraction PT 14.4 INR 1.1 APTT 28.3 Sodium 137 Potassium 4.0 Chloride 107 Carbon Dioxide 25 Anion Gap 5 BUN 28 H Creatinine 0.71 Estim Creat Clear Calc 99 Estimated GFR > 60 Glucose 59 L* POC Capillary Glucose Lactic Acid 2.4 H Calcium 8.7 Total Bilirubin 0.4 AST 19 ALT 17 Alkaline Phosphatase 62 C-Reactive Protein 1.4 H Total Protein 5.6 L Albumin 3.2 L Urine Color Yellow Urine Appearance Cloudy H Urine pH 5.0 Ur Specific [place] 1.044 H Urine Protein Negative Urine Glucose (UA) 3+ H Urine Ketones Trace H Ur Blood (Man) Negative Urine Nitrate Positive H Urine Bilirubin Negative Urine Urobilinogen 1.0 Add Ur Microanalysis Reviewed Leukocyte Esterase Rfl Negative Urine RBC 0-2 Urine WBC 6-10 H Ur Squamous Epith Cells None seen Urine Bacteria 4+ H Urine Casts 0-2 Stl Occult Blood (IFOB) C. difficile (PCR) 12/05/24 12/05/24 12/05/24 13:49 14:52 17:03 WBC RBC Hgb Hct MCV MCH MCHC RDW Plt Count MPV Immature Gran % (Auto) Neut % (Auto) Lymph % (Auto) [place] % (Auto) Eos % (Auto) Baso % (Auto) Lymph # (Auto) [place] # (Auto) Eos # (Auto) Baso # (Auto) Abs Immat Gran (auto) Absolute Neuts (auto) Absolute Nucleated RBC Nucleated RBC % % Immature Plt Fraction PT INR APTT Sodium Potassium Chloride Carbon Dioxide Anion Gap BUN Creatinine Estim Creat Clear Calc Estimated GFR Glucose POC Capillary Glucose 119 H 63 L Lactic Acid 2.1 H Calcium Total Bilirubin AST ALT Alkaline Phosphatase C-Reactive Protein Total Protein Albumin Urine Color Urine Appearance Urine pH Ur Specific [place] Urine Protein Urine Glucose (UA) Urine Ketones Ur Blood (Man) Urine Nitrate Urine Bilirubin Urine Urobilinogen Add Ur Microanalysis Leukocyte Esterase Rfl Urine RBC Urine WBC Ur Squamous Epith Cells Urine Bacteria Urine Casts Stl Occult Blood (IFOB) C. difficile (PCR) 12/05/24 12/05/24 12/06/24 18:27 23:30 00:04 WBC RBC Hgb Hct MCV MCH MCHC RDW Plt Count MPV Immature Gran % (Auto) Neut % (Auto) Lymph % (Auto) [place] % (Auto) Eos % (Auto) Baso % (Auto) Lymph # (Auto) [place] # (Auto) Eos # (Auto) Baso # (Auto) Abs Immat Gran (auto) Absolute Neuts (auto) Absolute Nucleated RBC Nucleated RBC % % Immature Plt Fraction PT INR APTT Sodium Potassium Chloride Carbon Dioxide Anion Gap BUN Creatinine Estim Creat Clear Calc Estimated GFR Glucose POC Capillary Glucose 123 H 99 Lactic Acid Calcium Total Bilirubin AST ALT Alkaline Phosphatase C-Reactive Protein Total Protein Albumin Urine Color Urine Appearance Urine pH Ur Specific [place] Urine Protein Urine Glucose (UA) Urine Ketones Ur Blood (Man) Urine Nitrate Urine Bilirubin Urine Urobilinogen Add Ur Microanalysis Leukocyte Esterase Rfl Urine RBC Urine WBC Ur Squamous Epith Cells Urine Bacteria Urine Casts Stl Occult Blood (IFOB) Positive H C. difficile (PCR) Negative 12/06/24 12/06/24 04:52 05:58 WBC 8.2 RBC 5.03 Hgb 14.9 Hct 48.5 MCV 96.4 D MCH 29.6 MCHC 30.7 L RDW 14.9 H Plt Count 216 MPV 9.9 Immature Gran % (Auto) 0.4 Neut % (Auto) 80.3 H Lymph % (Auto) 9.9 L [place] % (Auto) 7.8 Eos % (Auto) 1.0 Baso % (Auto) 0.6 Lymph # (Auto) 0.81 L [place] # (Auto) 0.6 Eos # (Auto) 0.1 Baso # (Auto) 0.1 Abs Immat Gran (auto) 0.03 Absolute Neuts (auto) 6.6 Absolute Nucleated RBC 0.000 Nucleated RBC % 0.0 % Immature Plt Fraction 4.8 PT INR APTT Sodium 133 L Potassium 4.4 Chloride 104 Carbon Dioxide 22 Anion Gap 7 BUN 15 D Creatinine 0.51 L Estim Creat Clear Calc 115 Estimated GFR > 60 Glucose 166 H POC Capillary Glucose 162 H Lactic Acid Calcium 8.1 L Total Bilirubin AST ALT Alkaline Phosphatase C-Reactive Protein Total Protein Albumin Urine Color Urine Appearance Urine pH Ur Specific [place] Urine Protein Urine Glucose (UA) Urine Ketones Ur Blood (Man) Urine Nitrate Urine Bilirubin Urine Urobilinogen Add Ur Microanalysis Leukocyte Esterase Rfl Urine RBC Urine WBC Ur Squamous Epith Cells Urine Bacteria Urine Casts Stl Occult Blood (IFOB) C. difficile (PCR) Quality VTE Prophylaxis VTE prophylaxis: mechanical ordered
[2024-12-06] MEDS: cefTRIAXone 1 GM in SODIUM CHLORIDE 0.9% IV 50 ML 100 ML IVPB (08:43)
[2024-12-06] MEDS: NICOTINE (*PBKC) 21 MG PATCH 1 PATCH TRANSDERM (08:44)
[2024-12-06] MEDS: DEXTROSE 5%/0.9% SOD CHL 1,000 ML 50 ML IV CONT (08:51)
[2024-12-06] MEDS: LACTATED RINGERS 1,000 ML 150 ML IV CONT (12:24)
--- NOTE | 2024-12-06 12:58 | WPDANESEPPF ---
Anes - Initial Pre Proc Eval Procedure: Operation Date: 12/06/24 13:00 Proposed Procedures p Diagnostic Colonoscopy - Angel Bell MD Date/Time: 12/06/24 12:58 Surgeon: Marce Daniel MD Pre Op Diagnosis: many complaints Patient Data Age: 59 Gender: M Height: 1.8 m Weight: 63.8 kg Last Vital Signs Temp 97.4 F L 12/06/24 12:14 Pulse 52 L 12/06/24 12:14 Resp 18 12/06/24 12:14 BP 110/57 L 12/06/24 12:14 Pulse Ox 100 12/06/24 12:14 O2 Del Method Room Air 12/06/24 12:14 Allergies Allergy/AdvReac Type Severity Reaction Status Date / Time No Known Allergies Allergy Verified 12/06/24 12:22 Home Medications ?Medication ?Instructions ?Recorded ?Confirmed ?Type empagliflozin 10 mg tablet 10 mg PO DAILY 08/27/23 10/29/23 History (Jardiance) metformin 1,000 mg tablet 1,000 mg PO BID 08/27/23 10/29/23 History cyclobenzaprine 10 mg tablet 10 mg PO BID 09/15/23 10/29/23 History naproxen 500 mg tablet See Rx Instructions .Route 11/06/24 Rx .COMPLEX #60 tabs prednisone 20 mg tablet 40 mg (2 x 20 mg) PO DAILY 7 days 11/18/24 Rx #14 tabs Laboratory Tests 12/05/24 12/05/24 12/05/24 12:40 12:41 13:08 WBC RBC Hgb Hct MCV MCH MCHC RDW Plt Count MPV Immature Gran % (Auto) Neut % (Auto) Lymph % (Auto) [place] % (Auto) Eos % (Auto) Baso % (Auto) Lymph # (Auto) [place] # (Auto) Eos # (Auto) Baso # (Auto) Abs Immat Gran (auto) Absolute Neuts (auto) Absolute Nucleated RBC Nucleated RBC % % Immature Plt Fraction PT 14.4 Seconds (11.1-14.7) INR 1.1 APTT 28.3 Seconds (22.3-36.8) Sodium 137 mmol/L (137-145) Potassium 4.0 mmol/L (3.4-5.0) Chloride 107 mmol/L (98-107) Carbon Dioxide 25 mmol/L (22-30) Anion Gap 5 mmol/L (4-12) BUN 28 H mg/dL (9-20) Creatinine 0.71 mg/dL (0.7-1.3) Estim Creat Clear Calc 99 ml/min Estimated GFR > 60 (59 - ) Glucose 59 L* mg/dL (65-110) POC Capillary Glucose Lactic Acid Calcium 8.7 mg/dL (8.4-10.2) Total Bilirubin 0.4 mg/dL (0.2-1.3) AST 19 U/L (17-59) ALT 17 U/L (6-50) Alkaline Phosphatase 62 U/L (38-126) C-Reactive Protein 1.4 H mg/dL (<1.0) Total Protein 5.6 L g/dL (6.3-8.2) Albumin 3.2 L g/dL (3.5-5.1) Urine Color Yellow (Yellow) Urine Appearance Cloudy H (Clear) Urine pH 5.0 (5.0-9.0) Ur Specific [place] 1.044 H (1.001-1.035) Urine Protein Negative mg/dL (Negative) Urine Glucose (UA) 3+ H mg/dL (Negative) Urine Ketones Trace H mg/dL (Negative) Ur Blood (Man) Negative (Negative) Urine Nitrate Positive H (Negative) Urine Bilirubin Negative (Negative) Urine Urobilinogen 1.0 mg/dL (<2.0) Add Ur Microanalysis Reviewed Leukocyte Esterase Rfl Negative HERMINIO/UL (Negative) Urine RBC 0-2 /hpf (0-2) Urine WBC 6-10 H /hpf (0-3) Ur Squamous Epith Cells None seen /hpf (Few) Urine Bacteria 4+ H /hpf Urine Casts 0-2 Stl Occult Blood (IFOB) Stool Calprotectin C. difficile (PCR) 12/05/24 12/05/24 12/05/24 13:49 14:52 17:03 WBC RBC Hgb Hct MCV MCH MCHC RDW Plt Count MPV Immature Gran % (Auto) Neut % (Auto) Lymph % (Auto) [place] % (Auto) Eos % (Auto) Baso % (Auto) Lymph # (Auto) [place] # (Auto) Eos # (Auto) Baso # (Auto) Abs Immat Gran (auto) Absolute Neuts (auto) Absolute Nucleated RBC Nucleated RBC % % Immature Plt Fraction PT INR APTT Sodium Potassium Chloride Carbon Dioxide Anion Gap BUN Creatinine Estim Creat Clear Calc Estimated GFR Glucose POC Capillary Glucose 119 H mg/dl 63 L mg/dl (65-105) (65-105) Lactic Acid 2.1 H mmol/L (0.7-2.0) Calcium Total Bilirubin AST ALT Alkaline Phosphatase C-Reactive Protein Total Protein Albumin Urine Color Urine Appearance Urine pH Ur Specific [place] Urine Protein Urine Glucose (UA) Urine Ketones Ur Blood (Man) Urine Nitrate Urine Bilirubin Urine Urobilinogen Add Ur Microanalysis Leukocyte Esterase Rfl Urine RBC Urine WBC Ur Squamous Epith Cells Urine Bacteria Urine Casts Stl Occult Blood (IFOB) Stool Calprotectin C. difficile (PCR) 12/05/24 12/05/24 12/06/24 18:27 23:30 00:04 WBC RBC Hgb Hct MCV MCH MCHC RDW Plt Count MPV Immature Gran % (Auto) Neut % (Auto) Lymph % (Auto) [place] % (Auto) Eos % (Auto) Baso % (Auto) Lymph # (Auto) [place] # (Auto) Eos # (Auto) Baso # (Auto) Abs Immat Gran (auto) Absolute Neuts (auto) Absolute Nucleated RBC Nucleated RBC % % Immature Plt Fraction PT INR APTT Sodium Potassium Chloride Carbon Dioxide Anion Gap BUN Creatinine Estim Creat Clear Calc Estimated GFR Glucose POC Capillary Glucose 123 H mg/dl 99 mg/dl (65-105) (65-105) Lactic Acid Calcium Total Bilirubin AST ALT Alkaline Phosphatase C-Reactive Protein Total Protein Albumin Urine Color Urine Appearance Urine pH Ur Specific [place] Urine Protein Urine Glucose (UA) Urine Ketones Ur Blood (Man) Urine Nitrate Urine Bilirubin Urine Urobilinogen Add Ur Microanalysis Leukocyte Esterase Rfl Urine RBC Urine WBC Ur Squamous Epith Cells Urine Bacteria Urine Casts Stl Occult Blood (IFOB) Positive H (N) Stool Calprotectin Pending C. difficile (PCR) Negative (NEGATIVE) 12/06/24 12/06/24 12/06/24 04:52 05:58 12:02 WBC 8.2 K/mm3 (4.5-10.0) RBC 5.03 M/mm3 (4.6-6.20) Hgb 14.9 g/dL (14.0-18.0) Hct 48.5 % (42.0-52.0) MCV 96.4 D fl (80-100) MCH 29.6 pg (26-34) MCHC 30.7 L g/dl (32-36) RDW 14.9 H % (11.5-14.5) Plt Count 216 k/mm3 (150-375) MPV 9.9 fl (7.4-10.4) Immature Gran % (Auto) 0.4 % (0-0.5) Neut % (Auto) 80.3 H % (45.5-73.1) Lymph % (Auto) 9.9 L % (18.3-44.2) [place] % (Auto) 7.8 % (2.6-8.5) Eos % (Auto) 1.0 % (0-4.4) Baso % (Auto) 0.6 % (0.2-1.2) Lymph # (Auto) 0.81 L K/mm3 (0.9-3.2) [place] # (Auto) 0.6 K/mm3 (0.1-0.6) Eos # (Auto) 0.1 K/mm3 (0-0.3) Baso # (Auto) 0.1 K/mm3 (0.0-0.1) Abs Immat Gran (auto) 0.03 K/mm3 (0.00-0.031) Absolute Neuts (auto) 6.6 K/mm3 (1.3-6.7) Absolute Nucleated RBC 0.000 K/mm3 (0.0-0.012) Nucleated RBC % 0.0 % (0.0-0.2) % Immature Plt Fraction 4.8 % (0.9-11.2) PT INR APTT Sodium 133 L mmol/L (137-145) Potassium 4.4 mmol/L (3.4-5.0) Chloride 104 mmol/L (98-107) Carbon Dioxide 22 mmol/L (22-30) Anion Gap 7 mmol/L (4-12) BUN 15 D mg/dL (9-20) Creatinine 0.51 L mg/dL (0.7-1.3) Estim Creat Clear Calc 115 ml/min Estimated GFR > 60 (59 - ) Glucose 166 H mg/dL (65-110) POC Capillary Glucose 162 H mg/dl 97 mg/dl (65-105) (65-105) Lactic Acid Calcium 8.1 L mg/dL (8.4-10.2) Total Bilirubin AST ALT Alkaline Phosphatase C-Reactive Protein Total Protein Albumin Urine Color Urine Appearance Urine pH Ur Specific [place] Urine Protein Urine Glucose (UA) Urine Ketones Ur Blood (Man) Urine Nitrate Urine Bilirubin Urine Urobilinogen Add Ur Microanalysis Leukocyte Esterase Rfl Urine RBC Urine WBC Ur Squamous Epith Cells Urine Bacteria Urine Casts Stl Occult Blood (IFOB) Stool Calprotectin C. difficile (PCR) 12/06/24 12:21 WBC RBC Hgb Hct MCV MCH MCHC RDW Plt Count MPV Immature Gran % (Auto) Neut % (Auto) Lymph % (Auto) [place] % (Auto) Eos % (Auto) Baso % (Auto) Lymph # (Auto) [place] # (Auto) Eos # (Auto) Baso # (Auto) Abs Immat Gran (auto) Absolute Neuts (auto) Absolute Nucleated RBC Nucleated RBC % % Immature Plt Fraction PT INR APTT Sodium Potassium Chloride Carbon Dioxide Anion Gap BUN Creatinine Estim Creat Clear Calc Estimated GFR Glucose POC Capillary Glucose 95 mg/dl (65-105) Lactic Acid Calcium Total Bilirubin AST ALT Alkaline Phosphatase C-Reactive Protein Total Protein Albumin Urine Color Urine Appearance Urine pH Ur Specific [place] Urine Protein Urine Glucose (UA) Urine Ketones Ur Blood (Man) Urine Nitrate Urine Bilirubin Urine Urobilinogen Add Ur Microanalysis Leukocyte Esterase Rfl Urine RBC Urine WBC Ur Squamous Epith Cells Urine Bacteria Urine Casts Stl Occult Blood (IFOB) Stool Calprotectin C. difficile (PCR) Patient hx anesthesia problems: none Family hx anesthesia problems: none Results Review: All pre-operative results and documents have been reviewed as part of the pre-operative evaluation. [facility] Past Medical History Medical History Crohn disease Diabetes Surgical History Surgical History History of partial colectomy Hx of repair of right rotator cuff DOS unknown- Dr. Lawson Family History Family History Unknown Asthma Cerebrovascular accident Depression Diabetes mellitus Lung cancer Social History Social History Social History: caffeine use Smoking packs per day: 2 Smoking cigarettes per day: 40.0 Smoking status: Current every day smoker Tobacco type: cigarettes Alcohol intake: never Substance use: never Substance use type: does not use Lack of Transportation: No Lack of Food: Sometimes True Current Housing: I Do Not Have Housing Concerned About Future Housing: YES Difficulty Paying Gas/Electric Bills: YES Difficulty Paying for Meds: No Currently Unemployed: No Education: High School Diploma/GED Difficulty w/ Childcare or Family Care: No Living arrangements: with family Occupation/Education: occupation 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 ) Neurological: alert and oriented Last oral intake: >/= 8 hours ASA classification: II Emergent: no Anesthetic plan: proceed Anesthesia type and monitoring: general GIVS and standard monitoring Results Review: All pre-operative results and documents have been reviewed as part of the pre-operative evaluation. Longstanding Crohn's, now for colonscopy. Informed Consent: The patient's anesthetic plan and its attendant risks and benefits were discussed with the patient/family/POA. Questions were solicited and answers provided to the satisfaction of the patient/family/POA.
--- NOTE | 2024-12-06 13:31 | S_PTH ---
PATIENT: Jose C Mortensen LOC: VSI1EOB #:[id number] AGE/SX: 59/M ROOM: 247 RE12/06/[address]: Skylar Lopez PA-C : 1965 BED: 01 DIS: 12/07/2024 SPEC #: [id number] RECD: 12/06/24 14:27 STATUS: CATRINA TSAI #: [id number] [place]: 12/06/24 13:[address]: Angel Bell DEPT: [facility] Surgical RECD BY: Shaniqua Easton ENTERED: 12/06/24 14:28 SP TYPE: Surgical OTHR DR: Gladys Sandhu, MD Skylar Guzman PA-C Tissues: A - Colon Biopsy B - Colon Biopsy Procedures: Hematoxylin and Eosin Stain Gross and Microscopic Level 4
--- NOTE | 2024-12-06 13:47 | P.PNGI_ITS ---
Progress Note: A&P Assessment and Plan (1) Crohn's disease: Code(s): K50.90 - Crohn's disease, unspecified, without complications Status: Acute Assessment and Plan: The patient's recent colonoscopy report confirmed active Crohn's disease, with significant inflammation noted in the right colon, ileocecal valve, and left colon. Biopsies were taken, and treatment will begin with two days of intravenous Solu-Medrol, followed by a transition to oral prednisone. Additionally, based on a presumed urinary tract infection with 4+ bacteria and positive nitrates in the urine, the patient's antibiotics will be switched to oral levofloxacin. To prepare for future biologic therapy, we have also ordered TMPT, HBsAg, and QuantiFERON tests. Subjective Date/time seen: 12/06/24 13:47 Objective Data Vital Signs Vital Signs: Vital Signs - 24 hr 12/05/24 16:00 12/05/24 20:00 12/05/24 21:01 Temperature 98.3 F 97.5 F L Pulse Rate 94 54 L Respiratory Rate 18 18 Blood Pressure 115/60 121/62 Pulse Oximetry 100 99 Oxygen Delivery Room Air 12/05/24 22:10 12/06/24 06:00 12/06/24 12:14 Temperature 97.5 F L 97.4 F L Pulse Rate 60 52 L Respiratory Rate 18 18 Blood Pressure 114/61 110/57 L Pulse Oximetry 98 100 100 Oxygen Delivery Room Air Room Air 12/06/24 13:34 Temperature Pulse Rate 52 L Respiratory Rate 14 Blood Pressure 106/56 L Pulse Oximetry 100 Oxygen Delivery Room Air Intake/Output Intake/Output: Intake & Output 12/03/24 12/04/24 12/05/24 12/06/24 23:59 23:59 23:59 23:59 Intake Total 1185.5 880.8 Balance 1185.5 880.8 Meds/Results Medications: Active Medications Generic Name Dose Route Start Last Admin Trade Name Freq PRN Reason Stop Dose Admin Acetaminophen 650 mg 12/05/24 15:12 12/06/24 05:25 Acetaminophen 325 Mg Tablet PO 650 mg Q4H PRN Administration Mild Pain (1-3) or Fever Dextrose 12.5 gm 12/05/24 13:04 Dextrose 50% 25 Gm/50 Ml Syringe IV PUSH PRN PRN Hypoglycemia Protocol Glucagon 1 mg 12/05/24 13:04 Glucagon For Inj 1 Mg Vial IM PRN PRN Hypoglycemia Protocol Glucose 15 gm 12/05/24 13:04 Glucose Oral Gel 15 Gm Of Glucse In 37.5 Gm Tube PO PRN PRN Hypoglycemia Protocol Dextrose 1,000 mls @ 100 mls/hr 12/05/24 13:04 Dextrose 5% 1,000 Ml IVPB PRN PRN Hypoglycemia Protocol Dextrose/Sodium Chloride 1,000 mls @ 50 mls/hr 12/05/24 18:15 12/06/24 08:51 Dextrose 5% Sodium Chloride 0.9% IV CONT 50 mls/hr .Q20H PARRISH Administration Lactated Ringer's 1,000 mls @ 150 mls/hr 12/06/24 12:25 12/06/24 13:32 Lr - Lactated Ringers Iv IV CONT 150 mls/hr .[id number] PARRISH Infusion Levofloxacin 500 mg 12/07/24 09:00 Levofloxacin 500 Mg Tablet PO DAILY PARRISH Methylprednisolone Sodium Succinate 60 gm 12/06/24 13:45 Methylprednisolone Sod Succ 2 Gm Vial IV PUSH DAILY PARRISH Nicotine 1 patch 12/05/24 20:00 12/06/24 08:44 Nicotine (*Pbkc) 21 Mg Patch TRANSDERM 1 patch DAILY PARRISH Administration Nicotine Polacrilex 4 mg 12/05/24 19:59 Nicotine (*Pbkc) 4 Mg Gum PO PRN PRN Nicotine Cravings Radiology Results: ITS Impressions Head CT 12/05/24 13:46 IMPRESSION: 1. No acute intracranial findings. Chest X-Ray 12/05/24 14:24 Impression: No acute cardiopulmonary abnormality. Abdomen/Pelvis CT 12/05/24 14:33 IMPRESSION: 1. Enterocolitis. No complicating features noted. 2. Non-acute and chronic findings as above. Labs Labs: Laboratory Results - last 24 hr 12/05/24 12/05/24 12/05/24 12:40 13:49 14:52 WBC RBC Hgb Hct MCV MCH MCHC RDW Plt Count MPV Immature Gran % (Auto) Neut % (Auto) Lymph % (Auto) Morrison % (Auto) Eos % (Auto) Baso % (Auto) Lymph # (Auto) Morrison # (Auto) Eos # (Auto) Baso # (Auto) Abs Immat Gran (auto) Absolute Neuts (auto) Absolute Nucleated RBC Nucleated RBC % % Immature Plt Fraction Sodium Potassium Chloride Carbon Dioxide Anion Gap BUN Creatinine Estim Creat Clear Calc Estimated GFR Glucose POC Capillary Glucose 119 H Lactic Acid 2.1 H Calcium C-Reactive Protein 1.4 H Stl Occult Blood (IFOB) C. difficile (PCR) 12/05/24 12/05/24 12/05/24 17:03 18:27 23:30 WBC RBC Hgb Hct MCV MCH MCHC RDW Plt Count MPV Immature Gran % (Auto) Neut % (Auto) Lymph % (Auto) Morrison % (Auto) Eos % (Auto) Baso % (Auto) Lymph # (Auto) Morrison # (Auto) Eos # (Auto) Baso # (Auto) Abs Immat Gran (auto) Absolute Neuts (auto) Absolute Nucleated RBC Nucleated RBC % % Immature Plt Fraction Sodium Potassium Chloride Carbon Dioxide Anion Gap BUN Creatinine Estim Creat Clear Calc Estimated GFR Glucose POC Capillary Glucose 63 L 123 H Lactic Acid Calcium C-Reactive Protein Stl Occult Blood (IFOB) Positive H C. difficile (PCR) Negative 12/06/24 12/06/24 12/06/24 00:04 04:52 05:58 WBC 8.2 RBC 5.03 Hgb 14.9 Hct 48.5 MCV 96.4 D MCH 29.6 MCHC 30.7 L RDW 14.9 H Plt Count 216 MPV 9.9 Immature Gran % (Auto) 0.4 Neut % (Auto) 80.3 H Lymph % (Auto) 9.9 L Morrison % (Auto) 7.8 Eos % (Auto) 1.0 Baso % (Auto) 0.6 Lymph # (Auto) 0.81 L Morrison # (Auto) 0.6 Eos # (Auto) 0.1 Baso # (Auto) 0.1 Abs Immat Gran (auto) 0.03 Absolute Neuts (auto) 6.6 Absolute Nucleated RBC 0.000 Nucleated RBC % 0.0 % Immature Plt Fraction 4.8 Sodium 133 L Potassium 4.4 Chloride 104 Carbon Dioxide 22 Anion Gap 7 BUN 15 D Creatinine 0.51 L Estim Creat Clear Calc 115 Estimated GFR > 60 Glucose 166 H POC Capillary Glucose 99 162 H Lactic Acid Calcium 8.1 L C-Reactive Protein Stl Occult Blood (IFOB) C. difficile (PCR) 12/06/24 12/06/24 12:02 12:21 WBC RBC Hgb Hct MCV MCH MCHC RDW Plt Count MPV Immature Gran % (Auto) Neut % (Auto) Lymph % (Auto) Morrison % (Auto) Eos % (Auto) Baso % (Auto) Lymph # (Auto) Morrison # (Auto) Eos # (Auto) Baso # (Auto) Abs Immat Gran (auto) Absolute Neuts (auto) Absolute Nucleated RBC Nucleated RBC % % Immature Plt Fraction Sodium Potassium Chloride Carbon Dioxide Anion Gap BUN Creatinine Estim Creat Clear Calc Estimated GFR Glucose POC Capillary Glucose 97 95 Lactic Acid Calcium C-Reactive Protein Stl Occult Blood (IFOB) C. difficile (PCR)
--- NOTE | 2024-12-06 15:52 | PC.NURSE ---
Patient is refusing all bed and chair alarms at this time. Patient got out of bed and started walking around the unit without notifying staff. Patient was educated on the need to stay in bed and to only ambulate with the help of staff. Patient states he is fine and needs to get his blood pumping to get back to normal. Patient still refusing alarm but states he will call for ambulation with the help of staff. Will continue to educate on the need for alarms.
[2024-12-06 15:53] LABS: Hepatitis B Surface Antigen Negative (Negative)
[2024-12-07 05:10] LABS: Hematocrit 40.2 % (42.0-52.0); Hemoglobin 13.1 g/dL (14.0-18.0); Mean Corpuscular HGB Conc 32.6 g/dl (32-36); Mean Corpuscular Hemoglobin 30.1 pg (26-34); Mean Corpuscular Volume 92.4 fl (80-100); Platelet Count Result 193 k/mm3 (150-375); Red Blood Count 4.35 M/mm3 (4.6-6.20); White Blood Count 5.4 K/mm3 (4.5-10.0)
[2024-12-07 05:38] LABS: Alanine Aminotransferase 12 U/L (6-50); Albumin Level 2.7 g/dL (3.5-5.1); Alkaline Phosphatase 49 U/L (38-126); Anion Gap 0 mmol/L (4-12); Aspartate Amino Transferase 21 U/L (17-59); Bilirubin,Total 0.5 mg/dL (0.2-1.3); Blood Urea Nitrogen 10 mg/dL (9-20); Calcium 8.0 mg/dL (8.4-10.2); Carbon Dioxide 26 mmol/L (22-30); Chloride 109 mmol/L (98-107); Estimated CRCL calculation 96 ml/min; Estimated Glomerular Filt Rate > 60; Glucose 107 mg/dL (65-110); Potassium 3.4 mmol/L (3.4-5.0); Sodium 135 mmol/L (137-145); Total Protein 5.0 g/dL (6.3-8.2)
[2024-12-07 05:53] VITALS: BP 122/62; PULSE 52; RESP 18; TEMP 36.8; O2SAT 98
--- NOTE | 2024-12-07 07:12 | P.PNIM_ITS ---
Progress Note: A&P Assessment and Plan (1) Crohn's disease: Code(s): K50.90 - Crohn's disease, unspecified, without complications Status: Acute Assessment and Plan: Symptoms: uncontrollable diarrhea Diagnosed with Crohn's over 15 years ago following a severe episode of abdominal pain and possible obstruction that required a bowel resection. His treatment has been intermittent, and he last used Humira approximately one year ago but stopped due to insurance and financial constraints. Stool occult positive, H/H remains stable. No signs of active bleeding on colonoscopy report. C diff sample negative Stool culture pending Monitor vital signs, I&Os, track stool output, watch for bloody stools, neuro status and patient is a fall risk Monitor serum electrolytes and CBC GI consulted for unmanaged crohns disease CRP elevated and stool calprotectin pending Colonoscopy report reviewed, active Crohn's disease, with significant inflammation in the right colon, ileocecal valve, and left colon. Treatment will begin with two days of intravenous Solu-Medrol, followed by a transition to oral prednisone. To prepare for future biologic therapy, we have also ordered TMPT, HBsAg, and QuantiFERON tests. (2) Urinary tract infection: Code(s): N39.0 - Urinary tract infection, site not specified Status: Acute Assessment and Plan: - UA: cloudy appearance with 3+ glucose, trace ketones, positive nitrates, negative leukocytes, 4+ bacteria - UC obtained on 12/05: pending - No previous micro to be reviewed - started on rocephin on 12/05, transitioned to oral levaquin on 12/07 Denies UTI like symptoms including dysuria, burning sensation, hematuria, and urgency/frequency. (3) Hypoglycemia: Code(s): E16.2 - Hypoglycemia, unspecified Status: Acute Assessment and Plan: Glucose 63 on admission, started on D5NS at that time Hypoglycemia likely related to poor oral intake and malabsorption related to crohns - D5NS 50 ml/hr DCed following the colonoscopy. Diet resumed. - hypoglycemia protocol - POC blood glucose ACHS - home medication - metformin and empagliflozin currently on hold - SSI - monitor glucose levels (4) Memory deficit: Code(s): R41.3 - Other amnesia Status: Acute Assessment and Plan: Patient does not appear to be altered he is aware of his medical history and medications A&O x4 Head CT unremarkable (5) Severe protein-calorie malnutrition: Code(s): E43 - Unspecified severe protein-calorie malnutrition Status: Acute Assessment and Plan: Supplement per nutrition (6) Nicotine addiction: Code(s): F17.200 - Nicotine dependence, unspecified, uncomplicated Status: Acute Assessment and Plan: Current daily smoke, encouraged smoking cessation Nicotine gum and patch ordered Time Spent With Patient Time with patient: 25 - 35 minutes Subjective Date/time seen: 12/07/24 07:12 Interval history: 59 year old male with past medical history of diabetes and crohns disease presents to the hospital for diarrhea. Patient is pleasant lying comfortably in bed. He has no complaints at this time denying chest pain, shortness a breath, palpitations, nausea/vomiting, abdominal pain. He states that his diarrhea has resolved. Denies UTI like symptoms including dysuria, burning sensation, hematuria, and urgency/frequency. Patient remains inpatient at this time for IV steroids per GI given his acute Crohn's flare as seen on his colonoscopy. Patient states that he needs a cigarette during time of assessment discussed with patient that if he needs a nicotine patch or gum it is available and all has to was asked. He stated understanding Review of Systems Review of Systems: All systems reviewed & are unremarkable except as noted in HPI and below Exam Narrative: AF HR 52 RR 18 SpO2 98 BP 122/62 General: male in no acute respiratory distress who is nontoxic appearing, sitting up HEENT: Normocephalic. Atraumatic. Extraocular movement intact. Sclera clear and anicteric. No facial asymmetry. Chest: Lungs are clear to auscultation bilaterally. CV: Heart was regular rate and rhythm. Abd: Abdomen was soft. Nontender. Nondistended. Positive bowel sounds. Ext: No clubbing, cyanosis, or edema. Neuro: Patient is alert. Speech is clear. Objective Data Vital Signs Vital Signs: Vital Signs - 24 hr 12/06/24 12:14 12/06/24 13:34 12/06/24 13:44 Temperature 97.4 F L Pulse Rate 52 L 52 L 53 L Respiratory Rate 18 14 20 Blood Pressure 110/57 L 106/56 L 110/59 L Pulse Oximetry 100 100 100 Oxygen Delivery Room Air Room Air Room Air 12/06/24 13:54 12/06/24 14:00 12/06/24 21:19 Temperature 97.7 F 97.3 F L Pulse Rate 55 L 50 L 57 L Respiratory Rate 19 18 18 Blood Pressure 109/66 130/58 L 115/65 Pulse Oximetry 100 100 98 Oxygen Delivery Room Air 12/07/24 05:53 Temperature 98.3 F Pulse Rate 52 L Respiratory Rate 18 Blood Pressure 122/62 Pulse Oximetry 98 Oxygen Delivery Intake/Output Intake/Output: Intake & Output 12/04/24 12/05/24 12/06/24 12/07/24 23:59 23:59 23:59 23:59 Intake Total 1185.5 1150.8 100 Output Total 350 1100 Balance 1185.5 800.8 -1000 Meds/Results Medications: Active Medications Generic Name Dose Route Start Last Admin Trade Name Freq PRN Reason Stop Dose Admin Acetaminophen 650 mg 12/05/24 15:12 12/06/24 05:25 Acetaminophen 325 Mg Tablet PO 650 mg Q4H PRN Administration Mild Pain (1-3) or Fever Dextrose 12.5 gm 12/05/24 13:04 Dextrose 50% 25 Gm/50 Ml Syringe IV PUSH PRN PRN Hypoglycemia Protocol Glucagon 1 mg 12/05/24 13:04 Glucagon For Inj 1 Mg Vial IM PRN PRN Hypoglycemia Protocol Glucose 15 gm 12/05/24 13:04 Glucose Oral Gel 15 Gm Of Glucse In 37.5 Gm Tube PO PRN PRN Hypoglycemia Protocol Dextrose 1,000 mls @ 100 mls/hr 12/05/24 13:04 Dextrose 5% 1,000 Ml IVPB PRN PRN Hypoglycemia Protocol Dextrose/Sodium Chloride 1,000 mls @ 50 mls/hr 12/05/24 18:15 12/06/24 08:51 Dextrose 5% Sodium Chloride 0.9% IV CONT 50 mls/hr .Q20H PARRISH Administration Levofloxacin 500 mg 12/07/24 09:00 Levofloxacin 500 Mg Tablet PO DAILY PARRISH Methylprednisolone Sodium Succinate 60 mg 12/07/24 09:00 Methylprednisolone Sod Succ 125 Mg Vial IV PUSH DAILY PARRISH Nicotine 1 patch 12/05/24 20:00 12/06/24 08:44 Nicotine (*Pbkc) 21 Mg Patch TRANSDERM 1 patch DAILY PARRISH Administration Nicotine Polacrilex 4 mg 12/05/24 19:59 Nicotine (*Pbkc) 4 Mg Gum PO PRN PRN Nicotine Cravings Radiology Results: ITS Impressions Head CT 12/05/24 13:46 IMPRESSION: 1. No acute intracranial findings. Chest X-Ray 12/05/24 14:24 Impression: No acute cardiopulmonary abnormality. Abdomen/Pelvis CT 12/05/24 14:33 IMPRESSION: 1. Enterocolitis. No complicating features noted. 2. Non-acute and chronic findings as above. Labs Labs: Laboratory Results - last 24 hr 12/06/24 12/06/24 12/06/24 12:02 12:21 14:32 WBC RBC Hgb Hct MCV MCH MCHC RDW Plt Count MPV Sodium Potassium Chloride Carbon Dioxide Anion Gap BUN Creatinine Estim Creat Clear Calc Estimated GFR Glucose POC Capillary Glucose 97 95 Calcium Total Bilirubin AST ALT Alkaline Phosphatase Total Protein Albumin TPMT Activity, Quant TPMT Method TPMT Interpretation Hep Bs Antigen Negative 12/06/24 12/06/24 12/07/24 16:48 21:12 04:20 WBC 5.4 RBC 4.35 L Hgb 13.1 L Hct 40.2 L MCV 92.4 MCH 30.1 MCHC 32.6 RDW 14.8 H Plt Count 193 MPV 10.0 Sodium 135 L Potassium 3.4 Chloride 109 H Carbon Dioxide 26 Anion Gap 0 L BUN 10 D Creatinine 0.62 L Estim Creat Clear Calc 96 Estimated GFR > 60 Glucose 107 POC Capillary Glucose 185 H 150 H Calcium 8.0 L Total Bilirubin 0.5 AST 21 ALT 12 Alkaline Phosphatase 49 Total Protein 5.0 L Albumin 2.7 L TPMT Activity, Quant TPMT Method TPMT Interpretation Hep Bs Antigen 12/07/24 05:00 WBC RBC Hgb Hct MCV MCH MCHC RDW Plt Count MPV Sodium Potassium Chloride Carbon Dioxide Anion Gap BUN Creatinine Estim Creat Clear Calc Estimated GFR Glucose POC Capillary Glucose Calcium Total Bilirubin AST ALT Alkaline Phosphatase Total Protein Albumin TPMT Activity, Quant Cancelled TPMT Method Cancelled TPMT Interpretation Cancelled Hep Bs Antigen Quality VTE Prophylaxis VTE prophylaxis: mechanical ordered
[2024-12-07] MEDS: ACETAMINOPHEN 325 MG TABLET 650 MG PO (09:44)
[2024-12-07] MEDS: NICOTINE (*PBKC) 21 MG PATCH 1 PATCH TRANSDERM (09:46)
[2024-12-07 14:00] VITALS: BP 115/67; PULSE 66; RESP 16; TEMP 37.2; O2SAT 96
--- NOTE | 2024-12-07 14:12 | WPDGIPROGNO ---
Progress Note: A&P Assessment and Plan (1) Crohn's disease: Code(s): K50.90 - Crohn's disease, unspecified, without complications Status: Acute Assessment and Plan: diagnosed about 15 years ago and used to be on humira but lost insurance now here with flare, colonoscopy with active disease he can go home with 40 mg prednisone with slow taper (decrease 10 mg every week) and follow-up in office to hopefully start biologics (pending TB and HBV status) (2) Abdominal pain: Code(s): R10.9 - Unspecified abdominal pain Status: Acute (3) Urinary tract infection: Code(s): N39.0 - Urinary tract infection, site not specified Status: Acute Assessment and Plan: on abx (4) Nicotine addiction: Code(s): F17.200 - Nicotine dependence, unspecified, uncomplicated Status: Acute Assessment and Plan: advised to stop Subjective Date/time seen: 12/07/24 14:12 Interval history: colonoscopy yesterday with inflammation of ICV/ileitis and patchy colitis he is doing much better and had lunch, he would like to go home today- back to his baseline, also asking to smoke Review of Systems Review of Systems: All systems reviewed & are unremarkable except as noted in HPI and below Exam Const: General: comfortable and no acute distress HENMT: Face/Nose/Sinus: Normal nares present Eyes: General: appearance normal, both eyes and all related structures Neck: Neck: no JVD Resp: Auscultation: clear to auscultation bilaterally Cardio: Rate: regular rate Rhythm: regular rhythm GI: Inspection: non-distended GI Palp: Yes Soft to palpation Skin: General skin exam: normal color Neuro: Speech: normal speech Extrem: General: normal to inspection Psych: Mental Status: mental status grossly normal Objective Data Vital Signs Vital Signs: Vital Signs - 24 hr 12/06/24 21:19 12/07/24 05:53 Temperature 97.3 F L 98.3 F Pulse Rate 57 L 52 L Respiratory Rate 18 18 Blood Pressure 115/65 122/62 Pulse Oximetry 98 98 Intake/Output Intake/Output: Intake & Output 12/04/24 12/05/24 12/06/24 12/07/24 23:59 23:59 23:59 23:59 Intake Total 1185.5 1150.8 580 Output Total 350 1100 Balance 1185.5 800.8 520 Meds/Results Medications: Active Medications Generic Name Dose Route Start Last Admin Trade Name Freq PRN Reason Stop Dose Admin Acetaminophen 650 mg 12/05/24 15:12 12/07/24 09:44 Acetaminophen 325 Mg Tablet PO 650 mg Q4H PRN Administration Mild Pain (1-3) or Fever Dextrose 12.5 gm 12/05/24 13:04 Dextrose 50% 25 Gm/50 Ml Syringe IV PUSH PRN PRN Hypoglycemia Protocol Glucagon 1 mg 12/05/24 13:04 Glucagon For Inj 1 Mg Vial IM PRN PRN Hypoglycemia Protocol Glucose 15 gm 12/05/24 13:04 Glucose Oral Gel 15 Gm Of Glucse In 37.5 Gm Tube PO PRN PRN Hypoglycemia Protocol Dextrose 1,000 mls @ 100 mls/hr 12/05/24 13:04 Dextrose 5% 1,000 Ml IVPB PRN PRN Hypoglycemia Protocol Insulin Aspart 2 - 5 units 12/07/24 17:00 Insulin Aspart (*Bkc) 100 Units/Ml SUB-Q TIDWM PARRISH Protocol Levofloxacin 500 mg 12/07/24 09:00 12/07/24 09:44 Levofloxacin 500 Mg Tablet PO 500 mg DAILY PARRISH Administration Methylprednisolone Sodium Succinate 60 mg 12/07/24 09:00 12/07/24 09:45 Methylprednisolone Sod Succ 125 Mg Vial IV PUSH 60 mg DAILY PARRISH Administration Nicotine 1 patch 12/05/24 20:00 12/07/24 09:46 Nicotine (*Pbkc) 21 Mg Patch TRANSDERM 1 patch DAILY PARRISH Administration Nicotine Polacrilex 4 mg 12/05/24 19:59 Nicotine (*Pbkc) 4 Mg Gum PO PRN PRN Nicotine Cravings Radiology Results: ITS Impressions Head CT 12/05/24 13:46 IMPRESSION: 1. No acute intracranial findings. Chest X-Ray 12/05/24 14:24 Impression: No acute cardiopulmonary abnormality. Abdomen/Pelvis CT 12/05/24 14:33 IMPRESSION: 1. Enterocolitis. No complicating features noted. 2. Non-acute and chronic findings as above. Labs Labs: Laboratory Results - last 24 hr 12/06/24 12/06/24 12/06/24 14:32 16:48 21:12 WBC RBC Hgb Hct MCV MCH MCHC RDW Plt Count MPV Sodium Potassium Chloride Carbon Dioxide Anion Gap BUN Creatinine Estim Creat Clear Calc Estimated GFR Glucose POC Capillary Glucose 185 H 150 H Calcium Total Bilirubin AST ALT Alkaline Phosphatase Total Protein Albumin TPMT Activity, Quant TPMT Method TPMT Interpretation Hep Bs Antigen Negative 12/07/24 12/07/24 12/07/24 04:20 05:00 08:17 WBC 5.4 RBC 4.35 L Hgb 13.1 L Hct 40.2 L MCV 92.4 MCH 30.1 MCHC 32.6 RDW 14.8 H Plt Count 193 MPV 10.0 Sodium 135 L Potassium 3.4 Chloride 109 H Carbon Dioxide 26 Anion Gap 0 L BUN 10 D Creatinine 0.62 L Estim Creat Clear Calc 96 Estimated GFR > 60 Glucose 107 POC Capillary Glucose 166 H Calcium 8.0 L Total Bilirubin 0.5 AST 21 ALT 12 Alkaline Phosphatase 49 Total Protein 5.0 L Albumin 2.7 L TPMT Activity, Quant Cancelled TPMT Method Cancelled TPMT Interpretation Cancelled Hep Bs Antigen 12/07/24 11:33 WBC RBC Hgb Hct MCV MCH MCHC RDW Plt Count MPV Sodium Potassium Chloride Carbon Dioxide Anion Gap BUN Creatinine Estim Creat Clear Calc Estimated GFR Glucose POC Capillary Glucose 240 H Calcium Total Bilirubin AST ALT Alkaline Phosphatase Total Protein Albumin TPMT Activity, Quant TPMT Method TPMT Interpretation Hep Bs Antigen
--- NOTE | 2024-12-07 15:44 | P.DS_ITS ---
DS: Admitting Diagnosis Discharge Date 12/07/2024 Admitting Diagnosis Crohns disease UTI Hypoglycemia Memory deficit severe protein calorie malnutrition DS: Discharge Diagnosis Discharge Diagnosis (1) Crohn's disease: Code(s): K50.90 - Crohn's disease, unspecified, without complications Status: Acute (2) Urinary tract infection: Code(s): N39.0 - Urinary tract infection, site not specified Status: Acute (3) Hypoglycemia: Code(s): E16.2 - Hypoglycemia, unspecified Status: Acute (4) Memory deficit: Code(s): R41.3 - Other amnesia Status: Acute (5) Severe protein-calorie malnutrition: Code(s): E43 - Unspecified severe protein-calorie malnutrition Status: Acute (6) Nicotine addiction: Code(s): F17.200 - Nicotine dependence, unspecified, uncomplicated Status: Acute DS: Summary Hospital Course Reason for hospitalization: Crohns disease UTI Hypoglycemia Memory deficit severe protein calorie malnutrition Hospital Course: 59 year old male with past medical history of diabetes and crohns disease requiring bowel resection presents to the hospital for diarrhea. Stool occult positive, H/H remains stable. No signs of active bleeding on colonoscopy report. C diff sample negative. GI consulted for unmanaged crohns disease. Colonoscopy report reviewed, active Crohn's disease, with significant inflammation in the right colon, ileocecal valve, and left colon. Following the colonoscopy patient states that he has returned back to his baseline and had no complaints nausea/vomiting/diarrhea or abdominal pain. He was tolerating his diet well. Patient again evaluated by GI who states that he is stable for discharge from their perspective on a prednisone taper. Patient follow-up with GI in the outpatient setting to hopefully be started on biologics. Given the memory deficits noted on admission a head ct was obtained and unremarkable. Throughout admission patient remained alert and oriented x4 and had no complaints memory issues or confusion. During admission patient had a UA concerning for infection. A urine culture was collected and patient was started on IV antibiotics. Prior discharge patient was transitioned to oral Levaquin to complete the course. At time of discharge the urine culture had not yet been completed. Given that the urine culture had not returned, had an in-depth conversation with patient in terms of discharge. Discussed with patient that if the urine culture comes back and shows resistance to the oral antibiotic that they were discharged on they will either receive a phone call and a new oral antibiotic will be sent to the pharmacy or they will have to come back to the hospital for IV antibiotics if no oral option is available. Patient stated understanding and was agreeable with discharge at this time. On admission patient was noted to be hypoglycemic. He was started on D5 normal saline given that he was NPO for colonoscopy. Following the colonoscopy patient's D5 normal saline was discontinued and he was resumed on a normal diet. Patient then became hyperglycemic prior to discharge. He is to resume his diabetes regimen at time of discharge. Patient has no complaints denying chest pain, shortness of breath, palpitations, nausea/vomiting and abdominal pain. Patient denies any dizziness/lightheadedness with ambulation. States back to baseline. Patient discharged home in a stable condition. He is to follow-up with his primary care provider in 1 week and GI as scheduled. Status at Discharge Functional status at discharge: independent ambulation Time Spent with Patient Time attestation: Total time spent providing and/or coordinating discharge services: Time spent: Greater than 30 minutes Exam Narrative: AF HR 52 RR 18 SpO2 98 BP 122/62 General: male in no acute respiratory distress who is nontoxic appearing, sitting up HEENT: Normocephalic. Atraumatic. Extraocular movement intact. Sclera clear and anicteric. No facial asymmetry. Chest: Lungs are clear to auscultation bilaterally. CV: Heart was regular rate and rhythm. Abd: Abdomen was soft. Nontender. Nondistended. Positive bowel sounds. Ext: No clubbing, cyanosis, or edema. Neuro: Patient is alert. Speech is clear. DS: Data Data Completed and Pending Completed studies during hospitalization: abdomen/pelvis ct chest xr head ct Pending studies at discharge: Pending at discharge 12/06/24 13:31 Surgical [PTH] Routine Labs on day of discharge: Labs from last 24 hours 12/07/24 12/07/24 12/07/24 11:33 08:17 05:00 WBC RBC Hgb Hct MCV MCH MCHC RDW Plt Count MPV Sodium Potassium Chloride Carbon Dioxide Anion Gap BUN Creatinine Estim Creat Clear Calc Estimated GFR Glucose POC Capillary Glucose 240 H 166 H Calcium Total Bilirubin AST ALT Alkaline Phosphatase Total Protein Albumin TPMT Activity, Quant Cancelled TPMT Method Cancelled TPMT Interpretation Cancelled Hep Bs Antigen 12/07/24 12/06/24 12/06/24 04:20 21:12 16:48 WBC 5.4 RBC 4.35 L Hgb 13.1 L Hct 40.2 L MCV 92.4 MCH 30.1 MCHC 32.6 RDW 14.8 H Plt Count 193 MPV 10.0 Sodium 135 L Potassium 3.4 Chloride 109 H Carbon Dioxide 26 Anion Gap 0 L BUN 10 D Creatinine 0.62 L Estim Creat Clear Calc 96 Estimated GFR > 60 Glucose 107 POC Capillary Glucose 150 H 185 H Calcium 8.0 L Total Bilirubin 0.5 AST 21 ALT 12 Alkaline Phosphatase 49 Total Protein 5.0 L Albumin 2.7 L TPMT Activity, Quant TPMT Method TPMT Interpretation Hep Bs Antigen 12/06/24 14:32 WBC RBC Hgb Hct MCV MCH MCHC RDW Plt Count MPV Sodium Potassium Chloride Carbon Dioxide Anion Gap BUN Creatinine Estim Creat Clear Calc Estimated GFR Glucose POC Capillary Glucose Calcium Total Bilirubin AST ALT Alkaline Phosphatase Total Protein Albumin TPMT Activity, Quant TPMT Method TPMT Interpretation Hep Bs Antigen Negative Preliminary micro results at discharge 12/05/24 13:08 - Preliminary Urine Clean Catch Discharge Plan Discharge Attending physician on discharge: Marce Daniel Consulting providers: Skylar Lopez; Angel Bell Discharging Clinician: Skylar Lopez Anticipated Discharge Date/Time: 12/07/24 15:26 Patient Disposition: Home Activity: as tolerated Diet: as tolerated and low fiber Discharge Instructions: Discharge disposition: Patient admitted to the hospital for a Crohns flare GI evaluated Colonoscopy performed and showed active Crohn's disease, with significant inflammation in the right colon, ileocecal valve, and left colon. Take medications as prescribed Prednisone taper, attached is information on this medication Follow up with GI, call for appointment Diagnosed with a UTI Take all medications as prescribed even if feeling better Levaquin daily, attached is information on this medication Given that the urine culture has not returned, if the urine culture comes back and shows resistance to the oral antibiotic that you were discharged on you will either receive a phone call and a new oral antibiotic will be sent to the pharmacy or you will have to come back to the hospital for IV antibiotics if no oral option is available. Eat well balanced meals and stay hydrated Keep active to remain strong Good cheryle Care every 2 hours Trend urine output Take caution while standing, rising, or moving Change positions slowly taking a break between each position change If you standing feel dizzy sit back down and take a break Encouraged to continue with yearly vaccinations Return to the emergency department if he developed sudden shortness of breath, chest pain, nausea, vomiting, upset stomach or intractable diarrhea Return to the emergency department if you develop fever greater than 100.5 Follow-up with the primary care physician within 1-2 weeks Thank you for [facility] for your healthcare needs Patient Instructions: Antibiotic Form, Prednisone (By mouth), Levofloxacin (By mouth), Crohn Disease (DC), Urinary Tract Infection in Men (DC), Suicide Prevention (GEN) Patient Language: Estonian Stand Alone Forms: General Discharge Information Follow-up/Referrals: Carla,DALY Graham [Primary Care Provider, Unknown] - 1 Week Angel Bell MD [Physician, Gastroenterology] - Call for Appointment Discharge Medications: New levofloxacin 500 mg Tablet 500 mg PO DAILY Qty: 2 0RF prednisone 10 mg tablet 10 mg PO DIRECTED Qty: 70 0RF Rx Instructions: see taper instructions 40 mg daily (4 tabs) x7 days, 30 mg daily (3 tabs) x7 days, 20 mg daily (2 tabs) x7 days, 10 mg daily (1 tab) x7 days, then stop Continued glimepiride 1 mg tablet 1 mg PO BID Jardiance 25 mg tablet 25 mg PO DAILY metformin 1,000 mg tablet 1,000 mg PO BID naproxen 500 mg tablet See Rx Instructions .ROUTE .COMPLEX Qty: 60 1RF Dose Instruction: TAKE 1 TABLET BY MOUTH TWICE DAILY Rx Instructions: TAKE 1 TABLET BY MOUTH TWICE DAILY Date of admission: 12/06/24 15:54 Primary Care Provider: CarlaGladys Admitting Provider: Marce Daniel Attending physician on admission: Marce Daniel Condition: Stable Hospitalist MIPS Heart Failure (Exclusion) Patient has history of Heart Transplant or Left Ventricular Assistive Device?: No IF YES, STOP HERE Heart Failure (Qualifier) Patient has current or prior documentation of LVEF less than or equal to 40%, or mod/servere depressed LVSF?: No IF NO, STOP HERE
[2024-12-08 00:07] LABS: Calprotectin, Fecal 1470 ug/g (0-120)
--- NOTE | 2024-12-12 11:39 | PC.NURSE ---
urine cx shows normal urogenital kirk.
== END 2024-12-07 17:46 | disposition home or self-care (01) | DRG 245 ==
LOC: ANHED 14:08 → ANH2MED 15:39
PROVIDERS: Internal Medicine Gastroenterology; Nurse Practitioner Gerontology; Admitting Provider Internal Medicine; Emergency Provider Emergency Medicine; PCP Physician Assistant; Visit Provider Student in an Organized Health Care Education/Training Program
PROC: 0DJD8ZZ Inspection of Lower Intestinal Tract, Via Natural or Artificial Opening Endoscopic (ICD-10-PCS; CPT 45378; principal; 2024-12-06 13:00)
DX: K50.80 Crohn's disease of both small and large intestine without complications (principal); K52.89 Other specified noninfective gastroenteritis and colitis; N39.0 Urinary tract infection, site not specified; E43 Unspecified severe protein-calorie malnutrition; E11.649 Type 2 diabetes mellitus with hypoglycemia without coma; E86.0 Dehydration; F17.210 Nicotine dependence, cigarettes, uncomplicated; R41.3 Other amnesia; R19.5 Other fecal abnormalities; Z68.1 Body mass index [BMI] 19.9 or less, adult; H93.13 Tinnitus, bilateral; Z79.85 Long-term (current) use of injectable non-insulin antidiabetic drugs; Z79.84 Long term (current) use of oral hypoglycemic drugs; Z90.49 Acquired absence of other specified parts of digestive tract
CPT/HCPCS: 36415; 70450; 71045; 74177; 80048; 80053; 81001; 82274; 82948; 83605; 83993; 85025; 85027; 85055; 85610; 85730; 86140; 86480; 87045; 87046; 87086; 87340; 87427; 87493; 88305; 96361; 96365; 99285; A9270; G0378; G0379; J0696; J2003; J2704; J2919; J7030; J7042; J7120; Q9967

== ENCOUNTER 2024-12-11 22:45 | Observation (INO) | payer BC, SELFPAY ==
--- NOTE | ~2024-12-11 | MR_ITS ---
EXAMINATION: MR abdomen wo/w con DATE: 12/13/2024 15:36 INDICATION: Portal vein thrombosis TECHNIQUE: Magnetic resonance imaging (MRI) of the abdomen was performed without and with 12 mL Multihance intravenous contrast. Sequences included coronal T2- weighted SS-FSE, coronal and axial FS 2D-FIESTA, axial STIR FSE, axial T2- weighted SS-FSE, axial T2-weighted FS SS-FSE, axial diffusion-weighted SE, axial dual-echo T1-weighted FSPGR, and axial and coronal T1-weighted LAVA. Postcontrast axial T1-weighted LAVA images were obtained in a time course. Postcontrast coronal T1-weighted LAVA images were obtained. COMPARISON: CT dated 12/05/2024, and 10/09/2018 FINDINGS: Heart size is normal. No pericardial or pleural effusion. Multiple gallstones within the otherwise normal-appearing gallbladder. Chronic diffuse periportal edema. Again seen is cavernous transformation of the portal vein with numerous serpiginous collaterals extending throughout the main, left and right monroe hepatis likely related to since resolved portal venous thrombosis. The superior mesenteric, main left and right portal veins are all patent. Spleen, pancreas, bilateral adrenal glands and left kidney are normal. 5 mm T2 hyperintense nonenhancing cyst at the upper pole of the right kidney. No bowel obstruction. No pathologically enlarged abdominal lymphadenopathy. Bone marrow signal is normal throughout. IMPRESSION: 1. 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 2. Nonspecific periportal edema which may be related to the previously noted colitis. This could also be seen as sequela of right heart failure, hepatitis, cholangitis, pyelonephritis or aggressive fluid resuscitation. 3. Cholelithiasis. Reviewed, dictated and finalized at location A. IMPRESSION: 1. 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 2. Nonspecific periportal edema which may be related to the previously noted co litis. This could also be seen as sequela of right heart failure, hepatitis, ch olangitis, pyelonephritis or aggressive fluid resuscitation. 3. Cholelithiasis.
[2024-12-11 22:46] VITALS: PULSE 107; RESP 18; TEMP 36.3; O2SAT 98
[2024-12-11 23:05] LABS: Hematocrit 50.1 % (42.0-52.0); Hemoglobin 16.2 g/dL (14.0-18.0); Immature Granulocyte Percent A 0.3 % (0-0.5); Lymphocytes Absolute Auto 0.47 K/mm3 (0.9-3.2); Mean Corpuscular HGB Conc 32.3 g/dl (32-36); Mean Corpuscular Hemoglobin 29.9 pg (26-34); Mean Corpuscular Volume 92.4 fl (80-100); Nucleated Red Blood Cells Absolute Auto 0.000 K/mm3 (0.0-0.012); Nucleated Red Blood Cells Perc 0.0 % (0.0-0.2); Platelet Count Result 299 k/mm3 (150-375); Red Blood Count 5.42 M/mm3 (4.6-6.20); White Blood Count 10.5 K/mm3 (4.5-10.0)
[2024-12-11 23:07] LABS: Appearance Urine Clear (Clear); Glucose Urine UA 3+ mg/dL (Negative); Leukocyte Esterase Ur Negative LEU/UL (Negative); Nitrate Urine Negative (Negative); Specific Grav Ur > 1.045 (1.001-1.035)
[2024-12-11 23:18] LABS: Alanine Aminotransferase 20 U/L (6-50); Albumin Level 4.2 g/dL (3.5-5.1); Alkaline Phosphatase 73 U/L (38-126); Anion Gap 11 mmol/L (4-12); Aspartate Amino Transferase 23 U/L (17-59); Bilirubin,Total 0.5 mg/dL (0.2-1.3); Blood Urea Nitrogen 31 mg/dL (9-20); Calcium 9.4 mg/dL (8.4-10.2); Carbon Dioxide 25 mmol/L (22-30); Chloride 104 mmol/L (98-107); Estimated CRCL calculation 89 ml/min; Estimated Glomerular Filt Rate > 60; Glucose 202 mg/dL (65-110); Lipase 101 U/L (23-300); Potassium 4.0 mmol/L (3.4-5.0); Sodium 140 mmol/L (137-145); Total Protein 7.1 g/dL (6.3-8.2)
[2024-12-11 23:19] VITALS: PULSE 92; RESP 20; O2SAT 97
[2024-12-11 23:21] LABS: Add Urine Microscopic? NO
[2024-12-11 23:30] VITALS: PULSE 80; RESP 25; O2SAT 97
[2024-12-11 23:45] VITALS: PULSE 73; RESP 20; O2SAT 97
--- OUTSIDE RECORDS SUMMARY | 2024-12-11 23:57 | XMS_ITS | Clinical Summary ---
Author Organization [facility] Address [address] [place] [address] Care Team Providers Care Rolled Gold Plater Name Role Phone Gladys Delgado Primary Care Pr ovider Source Comments [facility],non-owned Affiliates and Associated Physician Practices is amultiple site organization consisting of ambulatory clinics and hospital sitesin [place], [place]. This disclosure is being madepursuant to the Care Everywhere program and may not contain all information available regarding this patient. 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 Here today for colonoscopy [...] by the physician, the nurse and the explosive ordnance disposal technician. The procedure was verified in the [...] as scheduled. Procedure Code(s): --- Professional --- 10883, Colonoscopy, flexible, proximal to splenic flexure; with biopsy, single or multiple --- Technical --- 74985, Colonoscopy, flexible, proximal to splenic flexure; with biopsy, single or multiple Diagnosis Code(s): --- Professional --- 555.9, Regional enteritis of unspecified site --- Technical --- 555.9, Regional enteritis of unspecified site CPT copyright 2013 [employer]. All rights reserved. The codes documented in this report are preliminary and upon senior portfolio analyst review may be revised to meet current compliance requirements. Attending Participation: I was present and participated during the entire procedure, including non-cooley portions. ____ Catalina Verma MD 11/22/2014 12:10 PM Number of Addenda: 0 Note Initiated On: 11/22/2014 10:46 AM [facility] 11/22/2014 10:4 6 AM CDT us Catalina eVrma MD GI PROCEDURE ORDERABLES Ed ited Result - Final [facility] ENDOSCOPY from Last 3 Months or Most Recently Relevant to Health Maintenance Insurance MEDICAID - [place] [facility] Care Teams Rolled Gold Plater Relationship Specialty Start Date End Date Gladys Delgado PA PCP - General Physician Multimedia Editor 11/22/14
--- OUTSIDE RECORDS SUMMARY | 2024-12-11 23:57 | XMS_ITS | Clinical Summary ---
Author Organization [facility] Address [facility] [place] [address] Care Team Providers Care Canine Service Teacher Name Role Phone Unavailable Primary Care Provider [...] Vaccines (1 of 2) 2013 COVID-19 Vaccine (1 - 2023-2 5 season) 2024 RSV Immunization or 60+ Years (1 - [...]
[2024-12-12] VITALS (23 sets, daily range): BP systolic 98–112; BP diastolic 54–71; PULSE 55–81; RESP 13–20; TEMP 36.2–36.9; O2SAT 95–98; BMI 18.6
[2024-12-12] MEDS: KETOROLAC 15 MG/ML VIAL (*BKC) 10 MG IV PUSH (01:07)
--- NOTE | 2024-12-12 02:44 | ED.NAVMDI ---
HPI - Nausea/Vomiting/Diarrhea General Chief complaint: Nausea/Vomiting/Diarrhea Stated complaint: Crohn's disease-constant diarrhea Time Seen by Provider: 12/11/24 23:50 History of Present Illness HPI Narrative: Patient presenting with Crohn's flare, had been admitted for this recently, had been doing much better and had been discharged, but has started having a lot of diarrhea again and pain. Symptoms similar to when he was here. Related Data Home Medications ?Medication ?Instructions ?Recorded ?Confirmed ?Last Taken ?Type metformin 1,000 mg tablet 1,000 mg PO BID 08/27/23 12/06/24 Unknown History empagliflozin 25 mg tablet 25 mg PO DAILY 12/06/24 12/06/24 Unknown History (Jardiance) glimepiride 1 mg tablet 1 mg PO BID 12/06/24 12/06/24 Unknown History Allergies Allergy/AdvReac Type Severity Reaction Status Date / Time No Known Allergies Allergy Verified 12/11/24 22:51 Review of Systems Review of Systems: All systems reviewed & are unremarkable except as noted in HPI and below PMFSH Past Medical History Medical History (Updated 12/12/24 @ 03:09 by Nancy Haskins MD) Abdominal pain Crohn disease Diabetes Surgical History Surgical History History of partial colectomy Hx of repair of right rotator cuff DOS unknown- Dr. Lawson Family History Family History Unknown Asthma Cerebrovascular accident Depression Diabetes mellitus Lung cancer Social History Social History Social History: caffeine use Smoking packs per day: 2 Smoking cigarettes per day: 40.0 Smoking status: Current every day smoker Tobacco type: cigarettes Alcohol intake: never Substance use: never Substance use type: does not use Lack of Transportation: No Lack of Food: Sometimes True Current Housing: I Do Not Have Housing Concerned About Future Housing: YES Difficulty Paying Gas/Electric Bills: YES Difficulty Paying for Meds: No Currently Unemployed: No Education: High School Diploma/GED Difficulty w/ Childcare or Family Care: No Living arrangements: with family Occupation/Education: occupation Additional occupation/education comments: [employer] Gender identity (if verbalized by the patient): Male Spiritual care concerns: No Exam Narrative: EXAMINATION OF ORGAN SYSTEMS/BODY AREAS: Constitutional: Vital signs per nursing GENERAL:[No acute distress, non-toxic appearing.] HEAD: Normal with no signs of head trauma. EYES: EOMI, conjunctiva normal ENT: Hearing grossly intact LUNGS: Nonlabored breathing. HEART: [Regular rate and rhythm] ABD: [Soft], [nontender to palpation] EXT: Normal range of motion SKIN: [No rashes or lesions.] NEURO: [Alert and oriented x 3. No gross focal sensory or strength deficits.] PSYCH: Normal affect Course Vital Signs Vital signs: Vital Signs Temperature 97.3 F L 12/11/24 22:46 Pulse Rate 107 H 12/11/24 22:46 Respiratory Rate 18 12/11/24 22:46 Pulse Oximetry 98 12/11/24 22:46 Oxygen Delivery Room Air 12/11/24 22:46 Temperature 97.3 F L 12/11/24 22:46 Pulse Rate 60 12/12/24 03:01 Respiratory Rate 17 12/12/24 03:01 Blood Pressure 104/66 12/12/24 03:00 Pulse Oximetry 97 12/12/24 03:01 Oxygen Delivery Room Air 12/11/24 22:46 MDM - Nausea/Vomiting/Diarrhea MDM Narrative Medical decision making narrative: Electronic medical record was reviewed. Patient presented to the ED with complaint of [abdominal pain and diarrhea, feels similar to when he was admitted here a week ago the same thing found to be Crohn's flare]. He is hoping to be readmitted to help control his symptoms. Vitals [were within acceptable limits]. Physical exam revealed soft abdomen without focal tenderness. [IV access was established by nursing staff. Patient had history of former narcotic use and does not want opiates, Toradol provided.]. CBC, BMP, lipase, LFTs, bilirubin and alk phos were obtained. Labs were pertinent for slightly elevated white count of 10.5 though he has been on steroids.. She did not since his symptoms are similar to prior, will not repeat CT at this time, case discussed with GI who agrees, agrees to consult on the patient, discussed with hospitalist for admission. Lab Data 12/11/24 22:54 12/11/24 22:54 Labs: Lab Results 12/11/24 12/11/24 Range/Units 22:54 22:58 WBC 10.5 H (4.5-10.0) K/mm3 RBC 5.42 (4.6-6.20) M/mm3 Hgb 16.2 D (14.0-18.0) g/dL Hct 50.1 (42.0-52.0) % MCV 92.4 (80-100) fl MCH 29.9 (26-34) pg MCHC 32.3 (32-36) g/dl RDW 15.2 H (11.5-14.5) % Plt Count 299 D (150-375) k/mm3 MPV 9.7 (7.4-10.4) fl Immature Gran % (Auto) 0.3 (0-0.5) % Neut % (Auto) 92.1 H (45.5-73.1) % Lymph % (Auto) 4.5 L (18.3-44.2) % [place] % (Auto) 2.7 (2.6-8.5) % Eos % (Auto) 0.1 (0-4.4) % Baso % (Auto) 0.3 (0.2-1.2) % Lymph # (Auto) 0.47 L (0.9-3.2) K/mm3 [place] # (Auto) 0.3 (0.1-0.6) K/mm3 Eos # (Auto) 0.0 (0-0.3) K/mm3 Baso # (Auto) 0.0 (0.0-0.1) K/mm3 Abs Immat Gran (auto) 0.03 (0.00-0.031) K/mm3 Absolute Neuts (auto) 9.6 H (1.3-6.7) K/mm3 Absolute Nucleated RBC 0.000 (0.0-0.012) K/mm3 Nucleated RBC % 0.0 (0.0-0.2) % Sodium 140 (137-145) mmol/L Potassium 4.0 (3.4-5.0) mmol/L Chloride 104 (98-107) mmol/L Carbon Dioxide 25 (22-30) mmol/L Anion Gap 11 (4-12) mmol/L BUN 31 H D (9-20) mg/dL Creatinine 0.66 L (0.7-1.3) mg/dL Estim Creat Clear Calc 89 ml/min Estimated GFR > 60 (59 - ) Glucose 202 H (65-110) mg/dL Calcium 9.4 (8.4-10.2) mg/dL Total Bilirubin 0.5 (0.2-1.3) mg/dL AST 23 (17-59) U/L ALT 20 (6-50) U/L Alkaline Phosphatase 73 (38-126) U/L Total Protein 7.1 (6.3-8.2) g/dL Albumin 4.2 (3.5-5.1) g/dL Lipase 101 (23-300) U/L Urine Color Yellow (Yellow) Urine Appearance Clear (Clear) Urine pH 5.0 (5.0-9.0) Ur Specific [place] > 1.045 H (1.001-1.035) Urine Protein Negative (Negative) mg/dL Urine Glucose (UA) 3+ H (Negative) mg/dL Urine Ketones Trace H (Negative) mg/dL Ur Blood (Man) Negative (Negative) Urine Nitrate Negative (Negative) Urine Bilirubin Negative (Negative) Urine Urobilinogen 0.2 (<2.0) mg/dL Leukocyte Esterase Rfl Negative (Negative) HERMINIO/UL Discharge Plan Discharge Clinical Impression: Crohn's disease Patient Disposition: Still a Patient Condition: Stable
--- NOTE | 2024-12-12 03:26 | ADMGEN ---
This patient, Jose C Mortensen, was admitted to [facility] Surg Room 326-01. Patient/family oriented to hospital policies and general routines including ID bracelet, bed and alarms, visiting hours, pain management, procedures, bathroom and other care routines, personal items, smoking policy, room service/diet, and visiting hours. Information on how to activate the Rapid Response Team has been discussed. Patient/Family are encouraged to report perceived risks to care and to ask questions if they do not understand what they are told or what they should do.
[2024-12-12] MEDS: SODIUM CHLORIDE 0.9% IV 1,000 ML 100 ML IV CONT ×2 (06:36→18:23)
[2024-12-12 06:52] LABS: Hematocrit 41.8 % (42.0-52.0); Hemoglobin 13.4 g/dL (14.0-18.0); Immature Granulocyte Percent A 0.3 % (0-0.5); Lymphocytes Absolute Auto 0.99 K/mm3 (0.9-3.2); Mean Corpuscular HGB Conc 32.1 g/dl (32-36); Mean Corpuscular Hemoglobin 30.0 pg (26-34); Mean Corpuscular Volume 93.5 fl (80-100); Nucleated Red Blood Cells Absolute Auto 0.000 K/mm3 (0.0-0.012); Nucleated Red Blood Cells Perc 0.0 % (0.0-0.2); Platelet Count Result 214 k/mm3 (150-375); Red Blood Count 4.47 M/mm3 (4.6-6.20); White Blood Count 6.9 K/mm3 (4.5-10.0)
[2024-12-12 07:12] LABS: Alanine Aminotransferase 14 U/L (6-50); Albumin Level 3.1 g/dL (3.5-5.1); Alkaline Phosphatase 50 U/L (38-126); Anion Gap 1 mmol/L (4-12); Aspartate Amino Transferase 18 U/L (17-59); Bilirubin,Total 0.5 mg/dL (0.2-1.3); Blood Urea Nitrogen 33 mg/dL (9-20); Calcium 8.6 mg/dL (8.4-10.2); Carbon Dioxide 30 mmol/L (22-30); Chloride 107 mmol/L (98-107); Estimated CRCL calculation 94 ml/min; Estimated Glomerular Filt Rate > 60; Glucose 80 mg/dL (65-110); Magnesium 2.0 mg/dL (1.6-2.3); Potassium 3.7 mmol/L (3.4-5.0); Sodium 138 mmol/L (137-145); Total Protein 5.4 g/dL (6.3-8.2)
--- NOTE | 2024-12-12 08:34 | WPDGICN ---
Assessment and Plan Assessment and plan (1) Crohn's disease: Qualifiers: Digestive disease complication type: without complication Gastrointestinal tract location: large intestine Qualified Code(s): K50.10 - Crohn's disease of large intestine without complications Code(s): K50.90 - Crohn's disease, unspecified, without complications Status: Acute (2) Abdominal pain: Qualifiers: Abdominal location: lower abdomen, unspecified Qualified Code(s): R10.30 - Lower abdominal pain, unspecified Code(s): R10.9 - Unspecified abdominal pain Status: Acute (3) Enterocolitis: Code(s): K52.9 - Noninfective gastroenteritis and colitis, unspecified Status: Acute (4) Weight loss: Code(s): R63.4 - Abnormal weight loss Status: Acute (5) Incontinence of feces with fecal urgency: Code(s): R15.9 - Full incontinence of feces; R15.2 - Fecal urgency Status: Acute (6) Cirrhosis: Qualifiers: Hepatic cirrhosis type: unspecified biliary cirrhosis Qualified Code(s): K74.5 - Biliary cirrhosis, unspecified Code(s): K74.60 - Unspecified cirrhosis of liver Status: Acute Plan 1. Crohn's disease/lower abdominal pain/abnormal imaging digestive-enterocolitis/diarrhea/fecal urgency with incontinence/weight loss: Last colonoscopy 12/06/2024 showed some severe patchy Crohn's disease seen at the ileocecal valve, in the proximal ascending, in the mid descending colon, in the distal descending, and in the sigmoid colon. There were serpiginous ulcers alternating with normal mucosa. Patient with partial colectomy > 15 years ago. Patient was recently hospitalized 12/05--12/07 with for same symptoms and that is when he had a colonoscopy performed and workup was started for initiating a biologic outpatient. Labs 12/05/2024 showed fecal calprotectin 1470 and C diff was negative. Patient was discharged home on oral prednisone but presented back to the emergency room today with same symptoms. CT 12/05/2024 showed enterocolitis. No complicating features noted. Prior CT 11/18/2024 showed Enteritis detailed above, correlate for history of inflammatory bowel disease. Colitis of the descending colon, there is a small focus of abnormal density which may relate to sequelae of previous infection or intervention however neoplasm is not excluded. Abscess formation difficult to exclude. Comparing the CT's the patients colitis has improved but not resolved. Patient voiced multiple times frustration on why he is not getting better. We discussed at length that he has a chronic disease that has been untreated for many years and that the inflammation noted on his colonoscopy will take time to heal even after he is started on a biologic. During this admission the patient complains of intermittent bilateral lower quadrant abdominal pain that he described as a throbbing sensation. He states that over the past few years his weight has decreased from 196 lb to 136 lb this admission. He states that during his flares he will have diarrhea throughout the day but was unable to quantify it he states that his bowel movements are often urgent and admits to episodes of fecal incontinence. He denies any hematochezia. He does take naproxen twice a day. Change oral prednisone to IV methylprednisolone 60 mg daily, when discharged patient will need to restart oral prednisone at 40 mg daily until we are able to start him on a biologic patient will need to follow up in the office within a few weeks of hospital discharge to arrange for him to start a biologic patient smokes more than a pack of cigarettes daily which is likely exacerbating his condition and increasing his risk of more aggressive disease, smoking cessation recommended 2. Cirrhosis: CT 11/18/2024 revealed cirrhotic disease of the liver with sequelae of probable portal venous thrombosis. MRI was previously recommended but it does not appear that it was completed. Patient with a history of alcohol abuse but states that he has not drink more than 20 years. LFTs this admission normal with total bilirubin 0.5, AST 18, ALT 14, alkaline phosphatase 50, albumin 3.1 and platelets 214. MRI abdomen ordered to rule out portal vein thrombosis and this will also allow us to further evaluate for small bowel Crohn's involvement Thank you very much for allowing me to share in the care of this very nice patient. This report may have been done utilizing a voice recognition system. Attempts have been made to correct errors. However, there may be uncorrected grammatical, spelling, and recognition errors present. GI Consult Note Consult date/time: 12/12/24 08:34 Reason for consult: Crohn's disease HPI: Jose C Mortensen is a 59 year old male with history of Crohn's disease and diabetes. He presented to the ER today with complaints of nausea, vomiting and diarrhea. GI has been consulted for Crohn's flare. Patient was recently admitted to [facility] 12/05-->12/07 for Crohn's disease and he was discharged on prednisone and advised to follow up with us outpatient to get him set up to start a biologic medication. During today's visit the patient complains of intermittent bilateral lower quadrant abdominal pain that he describes as a throbbing sensation. He states that he has lost ?a lot of weight? over the past few years. Patient states that a few years ago his weight was 196 lb and during this admission weight at 136 lb. Patient states that when he is having flare he has frequent liquid stools multiple times a day with urgency and fecal incontinence but patient was unable to quantify how many bowel movements. When he is not having a flare he typically has formed to loose bowel movements depending on what he. He denies nausea, vomiting, bloating, odynophagia, dysphagia, reflux, regurgitation, early satiety, appetite loss, constipation, hematochezia, or melena. Patient takes naproxen twice daily but denies any aspirin or anticoagulant use. Patient has a history of alcohol abuse but states that quit 20 years ago. He states that he smokes a pack or more of cigarettes daily and denies any marijuana family medical history unknown. ENDOSCOPY HISTORY: EGD: Patient has never had an EGD COLONOSCOPY: 12/06/[address] Bell for Crohn's disease Findings: Some severe patchy Crohn's disease was seen at the ileocecal valve, in the proximal ascending, in the mid descending colon, and in the distal descending, and in the sigmoid colon. There were serpiginous ulcers alternating with normal looking mucosa. The ileocecal valve was mildly stenotic, could not intubate the terminal ileum but the most distal 3-4 cm looked atrophic Multiple cold forceps biopsies were taken from the right and left colon, most of most marketing development representative areas Bx results: Large intestine, right colon, biopsy: - Chronic active colitis with ulcer - No granulomas or dysplasia Large intestine, left colon, biopsy: - Chronic active colitis with ulcer - No granulomas or dysplasia LABS AND STOOL STUDIES: Labs 12/12/2024: Sodium 138, potassium 3.7, BUN 33, creatinine 0.62, GFR >60, calcium 8.6, magnesium 2.0 WBC 7, Hgb 13, Hct 42, MCV 94, platelets 214 Total bilirubin 0.5, AST 18, ALT 14, Alkaline Phos 50, albumin 3.1 Labs 12/06/2024: Hep B and TB negative Labs 12/05/2024: Fecal calprotectin 1470, C-Diff negative IMAGING: CT abd/pelvis w/contrast 12/05/2024: IMPRESSION: 1. Enterocolitis. No complicating features noted. 2. Non-acute and chronic findings as above. CT abd/pelvis w/contrast 11/18/2024: IMPRESSION: 1. Enteritis detailed above, correlate for history of inflammatory bowel disease. 2. Colitis of the descending colon, there is a small focus of abnormal density which may relate to sequelae of previous infection or intervention however neoplasm is not excluded. Abscess formation difficult to exclude. Follow-up recommended to assess. 3. 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 Contrast-enhanced MRI is suggested [facility] Past Medical History Medical History (Updated 12/12/24 @ 12:24 by Diamond Deleon APRN) Abdominal pain Crohn disease Diabetes Surgical History Surgical History History of partial colectomy Hx of repair of right rotator cuff DOS unknown- Dr. Lawson Family History Family History Unknown Asthma Cerebrovascular accident Depression Diabetes mellitus Lung cancer Social History Social History Social History: caffeine use Smoking packs per day: 2 Smoking cigarettes per day: 40.0 Smoking status: Current every day smoker Tobacco type: cigarettes Alcohol intake: never Substance use: never Substance use type: does not use Lack of Transportation: No Lack of Food: Sometimes True Current Housing: I Do Not Have Housing Concerned About Future Housing: YES Difficulty Paying Gas/Electric Bills: YES Difficulty Paying for Meds: No Currently Unemployed: No Education: High School Diploma/GED Difficulty w/ Childcare or Family Care: No Living arrangements: with family Occupation/Education: occupation 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 [employer] Gender identity (if verbalized by the patient): Male Spiritual care concerns: No Meds Home Medications and Allergies Home Medications ?Medication ?Instructions ?Recorded ?Confirmed ?Type metformin 1,000 mg tablet 1,000 mg PO BID 08/27/23 12/12/24 History naproxen 500 mg tablet See Rx Instructions .Route 11/06/24 12/12/24 Rx .COMPLEX #60 tabs empagliflozin 25 mg tablet 25 mg PO DAILY 12/06/24 12/12/24 History (Jardiance) glimepiride 1 mg tablet 1 mg PO BID 12/06/24 12/12/24 History levofloxacin 500 mg tablet 500 mg PO DAILY #2 tabs 12/07/24 12/12/24 Rx prednisone 10 mg tablet 10 mg PO DIRECTED #70 tabs 12/07/24 12/12/24 Rx Allergies Allergy/AdvReac Type Severity Reaction Status Date / Time No Known Allergies Allergy Verified 12/12/24 03:23 Vital Signs Vital Signs - 24 hr 12/11/24 22:46 12/11/24 23:19 12/11/24 23:30 Temperature 97.3 F L Pulse Rate 107 H 92 80 Respiratory Rate 18 20 25 H Blood Pressure Pulse Oximetry 98 97 97 Oxygen Delivery Room Air 12/11/24 23:45 12/12/24 01:09 12/12/24 01:10 Temperature Pulse Rate 73 66 67 Respiratory Rate 20 13 19 Blood Pressure 106/63 Pulse Oximetry 97 97 96 Oxygen Delivery 12/12/24 01:15 12/12/24 01:16 12/12/24 01:30 Temperature Pulse Rate 64 64 63 Respiratory Rate 18 17 15 Blood Pressure 109/67 106/71 Pulse Oximetry 97 97 97 Oxygen Delivery 12/12/24 01:31 12/12/24 01:45 12/12/24 01:46 Temperature Pulse Rate 64 62 61 Respiratory Rate 20 18 17 Blood Pressure 109/68 Pulse Oximetry 97 97 97 Oxygen Delivery 12/12/24 02:00 12/12/24 02:01 12/12/24 02:15 Temperature Pulse Rate 58 L 58 L 61 Respiratory Rate 16 14 13 Blood Pressure 108/65 100/66 Pulse Oximetry 97 97 97 Oxygen Delivery 12/12/24 02:16 12/12/24 02:30 12/12/24 02:31 Temperature Pulse Rate 57 L 60 55 L Respiratory Rate 13 13 16 Blood Pressure 108/68 Pulse Oximetry 97 97 98 Oxygen Delivery 12/12/24 02:45 12/12/24 02:46 12/12/24 03:00 Temperature Pulse Rate 56 L 56 L 56 L Respiratory Rate 14 14 13 Blood Pressure 112/63 104/66 Pulse Oximetry 97 97 97 Oxygen Delivery 12/12/24 03:01 12/12/24 03:27 12/12/24 03:30 Temperature 98.4 F Pulse Rate 60 58 L 58 L Respiratory Rate 17 20 20 Blood Pressure 98/55 L Pulse Oximetry 97 98 98 Oxygen Delivery Room Air Results Labs 12/12/24 06:20 12/12/24 06:20 Labs: Short CBC 12/11/24 12/12/24 Range/Units 22:54 06:20 WBC 10.5 H 6.9 (4.5-10.0) K/mm3 Hgb 16.2 D 13.4 L (14.0-18.0) g/dL Hct 50.1 41.8 L (42.0-52.0) % Plt Count 299 D 214 (150-375) k/mm3 BMP 12/11/24 12/12/24 22:54 06:20 Sodium 140 138 Potassium 4.0 3.7 Chloride 104 107 Carbon Dioxide 25 30 BUN 31 H D 33 H Creatinine 0.66 L 0.62 L Glucose 202 H 80 Calcium 9.4 8.6 Liver Function 12/11/24 12/12/24 Range/Units 22:54 06:20 Total Bilirubin 0.5 0.5 (0.2-1.3) mg/dL AST 23 18 (17-59) U/L ALT 20 14 (6-50) U/L Alkaline Phosphatase 73 50 (38-126) U/L Albumin 4.2 3.1 L (3.5-5.1) g/dL Urine 12/11/24 Range/Units 22:58 Urine Color Yellow (Yellow) Urine Appearance Clear (Clear) Urine pH 5.0 (5.0-9.0) Ur Specific [place] > 1.045 H (1.001-1.035) Urine Protein Negative (Negative) mg/dL Urine Glucose (UA) 3+ H (Negative) mg/dL
[2024-12-12] MEDS: metroNIDAZOLE 500 MG/ISO 100ML 500 MG/100 ML BAG 100 MG IVPB ×3 (08:45→21:22)
[2024-12-12] MEDS: levoFLOXacin 750 MG/D5W 150 ML 750 MG/150 ML BAG 100 MG IVPB (08:45)
[2024-12-12] MEDS: EMPAGLIFLOZIN 25 MG TABLET PO (08:45)
[2024-12-12 10:21] LABS: IFOB Positive Control Positive; Immunochemical Fecal Occult Bl Positive (N)
[2024-12-12 10:59] LABS: Toxigenic C. Diff NEGATIVE (NEGATIVE)
[2024-12-12] MEDS: NICOTINE (*PBKC) 21 MG PATCH 1 PATCH TRANSDERM (12:17)
--- NOTE | 2024-12-12 13:10 | PM.IMHP ---
H&P: HPI History of Present Illness Date/Time: 12/12/24 13:10 Chief Complaint: Abdominal pain Diarrhea Narrative: 59 year old male with history of Crohn's disease and diabetes, presented to the ER with complaints of nausea, vomiting and diarrhea. Patient was recently admitted to [facility] 12/05-->12/07 for Crohn's disease and he was discharged on prednisone and advised to follow up with us outpatient to get him set up to start a biologic medication. He presented with intermittent bilateral lower quadrant abdominal pain. He complains of having frequent loose bowel movement, multiple times a day associated with pain. Patient has been taking naproxen twice daily Patient has a history of alcohol abuse but states that quit 20 years ago. He states that he smokes a pack or more of cigarettes daily. Denies any fever. C diff was negative. GI was consulted. Review of Systems Review of Systems: All systems reviewed & are unremarkable except as noted in HPI and below PMFSH Past Medical History Medical History Abdominal pain Crohn disease Diabetes Surgical History Surgical History History of partial colectomy Hx of repair of right rotator cuff DOS unknown- Dr. Lawson Family History Family History Unknown Asthma Cerebrovascular accident Depression Diabetes mellitus Lung cancer Social History Social History Social History: caffeine use Smoking packs per day: 2 Smoking cigarettes per day: 40.0 Smoking status: Current every day smoker Tobacco type: cigarettes Alcohol intake: never Substance use: never Substance use type: does not use Lack of Transportation: No Lack of Food: Sometimes True Current Housing: I Do Not Have Housing Concerned About Future Housing: YES Difficulty Paying Gas/Electric Bills: YES Difficulty Paying for Meds: No Currently Unemployed: No Education: High School Diploma/GED Difficulty w/ Childcare or Family Care: No Living arrangements: with family Occupation/Education: occupation Additional occupation/education comments: Home [employer] L[employer] for [employer] Gender identity (if verbalized by the patient): Male Spiritual care concerns: No Meds Home Medications and Allergies Home Medications ?Medication ?Instructions ?Recorded ?Confirmed ?Type metformin 1,000 mg tablet 1,000 mg PO BID 06/07/24 09/23/25 History naproxen 500 mg tablet See Rx Instructions .Route 11/06/24 12/12/24 Rx .COMPLEX #60 tabs empagliflozin 25 mg tablet 25 mg PO DAILY 12/06/24 12/12/24 History (Jardiance) glimepiride 1 mg tablet 1 mg PO BID 12/06/24 12/12/24 History levofloxacin 500 mg tablet 500 mg PO DAILY #2 tabs 12/07/24 12/12/24 Rx prednisone 10 mg tablet 10 mg PO DIRECTED #70 tabs 12/07/24 12/12/24 Rx Allergies Allergy/AdvReac Type Severity Reaction Status Date / Time No Known Allergies Allergy Verified 12/12/24 03:23 Vital Signs Vital Signs - 24 hr 12/11/24 22:46 12/11/24 23:19 12/11/24 23:30 Temperature 97.3 F L Pulse Rate 107 H 92 80 Respiratory Rate 18 20 25 H Blood Pressure Pulse Oximetry 98 97 97 Oxygen Delivery Room Air 12/11/24 23:45 12/12/24 01:09 12/12/24 01:10 Temperature Pulse Rate 73 66 67 Respiratory Rate 20 13 19 Blood Pressure 106/63 Pulse Oximetry 97 97 96 Oxygen Delivery 12/12/24 01:15 12/12/24 01:16 12/12/24 01:30 Temperature Pulse Rate 64 64 63 Respiratory Rate 18 17 15 Blood Pressure 109/67 106/71 Pulse Oximetry 97 97 97 Oxygen Delivery 12/12/24 01:31 12/12/24 01:45 12/12/24 01:46 Temperature Pulse Rate 64 62 61 Respiratory Rate 20 18 17 Blood Pressure 109/68 Pulse Oximetry 97 97 97 Oxygen Delivery 12/12/24 02:00 12/12/24 02:01 12/12/24 02:15 Temperature Pulse Rate 58 L 58 L 61 Respiratory Rate 16 14 13 Blood Pressure 108/65 100/66 Pulse Oximetry 97 97 97 Oxygen Delivery 12/12/24 02:16 12/12/24 02:30 12/12/24 02:31 Temperature Pulse Rate 57 L 60 55 L Respiratory Rate 13 13 16 Blood Pressure 108/68 Pulse Oximetry 97 97 98 Oxygen Delivery 12/12/24 02:45 12/12/24 02:46 12/12/24 03:00 Temperature Pulse Rate 56 L 56 L 56 L Respiratory Rate 14 14 13 Blood Pressure 112/63 104/66 Pulse Oximetry 97 97 97 Oxygen Delivery 12/12/24 03:01 12/12/24 03:27 12/12/24 03:30 Temperature 98.4 F Pulse Rate 60 58 L 58 L Respiratory Rate 17 20 20 Blood Pressure 98/55 L Pulse Oximetry 97 98 98 Oxygen Delivery Room Air 12/12/24 08:00 Temperature Pulse Rate Respiratory Rate Blood Pressure Pulse Oximetry Oxygen Delivery Room Air H&P: Results Labs Labs: Short CBC 12/11/24 12/12/24 Range/Units 22:54 06:20 WBC 10.5 H 6.9 (4.5-10.0) K/mm3 Hgb 16.2 D 13.4 L (14.0-18.0) g/dL Hct 50.1 41.8 L (42.0-52.0) % Plt Count 299 D 214 (150-375) k/mm3 BMP 12/11/24 12/12/24 22:54 06:20 Sodium 140 138 Potassium 4.0 3.7 Chloride 104 107 Carbon Dioxide 25 30 BUN 31 H D 33 H Creatinine 0.66 L 0.62 L Glucose 202 H 80 Calcium 9.4 8.6 Liver Function 12/11/24 12/12/24 Range/Units 22:54 06:20 Total Bilirubin 0.5 0.5 (0.2-1.3) mg/dL AST 23 18 (17-59) U/L ALT 20 14 (6-50) U/L Alkaline Phosphatase 73 50 (38-126) U/L Albumin 4.2 3.1 L (3.5-5.1) g/dL Urine 12/11/24 Range/Units 22:58 Urine Color Yellow (Yellow) Urine Appearance Clear (Clear) Urine pH 5.0 (5.0-9.0) Ur Specific [place] > 1.045 H (1.001-1.035) Urine Protein Negative (Negative) mg/dL Urine Glucose (UA) 3+ H (Negative) mg/dL Assessment and Plan Assessment and plan (1) Severe protein-calorie malnutrition: Code(s): E43 - Unspecified severe protein-calorie malnutrition Status: Acute (2) Crohn's disease: Code(s): K50.90 - Crohn's disease, unspecified, without complications Status: Acute (3) Abdominal pain: Qualifiers: Abdominal location: lower abdomen, unspecified Qualified Code(s): R10.30 - Lower abdominal pain, unspecified Code(s): R10.9 - Unspecified abdominal pain Status: Acute (4) Nicotine addiction: Code(s): F17.200 - Nicotine dependence, unspecified, uncomplicated Status: Acute Plan 59 year old male with history of Crohn's disease and diabetes, presented to the ER with complaints of nausea, vomiting and diarrhea. 1. Acute abdominal pain, secondary to Crohn's flare: Admit to General Medicine Continue with IV fluids C diff negative Continue with levofloxacin, Flagyl Appreciate GI help Hemoccult-positive stool Switched to IV Solu-Medrol, when patient is discharged will need to restart oral prednisone at 40 mg daily until he is started on biologic agent He will need to follow up in office within few weeks of hospital discharge Smoking cessation counseling as that increases the risk of exacerbation 2. History of liver cirrhosis: MRI abdomen has been ordered to rule out portal vein thrombosis 3. Diabetes mellitus: Blood glucose checked t.i.d. a.c. and HS Continue with sliding scale insulin Continue with Jardiance Expect hyperglycemia with steroid use 4. DVT prophylaxis: SCDs 5. Code status: Full 6. Disposition: Admit to General Medicine Quality VTE Prophylaxis VTE prophylaxis: mechanical ordered Hospitalist [facility] Advance Care Plan I have confirmed that the patient's Advanced Care Plan is present, code status is documented, or surrogate decision maker is listed in patient medical record.: Yes Medication Reconciliation I have utilized all available resources to obtain, update and review the patients current medications (includes all prescriptions, OTC, herbals, cannabis, and nutritional supplements).: Yes
[2024-12-12] MEDS: INSULIN ASPART (*BKC) 100 UNITS/ML SUB-Q ×2 (17:16→21:26)
[2024-12-13 04:43] VITALS: BP 126/62; PULSE 45; RESP 17; TEMP 36.8; O2SAT 98
[2024-12-13] MEDS: SODIUM CHLORIDE 0.9% IV 1,000 ML 100 ML IV CONT ×2 (05:29→21:23)
[2024-12-13] MEDS: metroNIDAZOLE 500 MG/ISO 100ML 500 MG/100 ML BAG 100 MG IVPB ×3 (05:30→21:25)
[2024-12-13 06:50] LABS: Hematocrit 41.8 % (42.0-52.0); Hemoglobin 13.1 g/dL (14.0-18.0); Immature Granulocyte Percent A 0.4 % (0-0.5); Lymphocytes Absolute Auto 1.17 K/mm3 (0.9-3.2); Mean Corpuscular HGB Conc 31.3 g/dl (32-36); Mean Corpuscular Hemoglobin 29.6 pg (26-34); Mean Corpuscular Volume 94.6 fl (80-100); Nucleated Red Blood Cells Absolute Auto 0.000 K/mm3 (0.0-0.012); Nucleated Red Blood Cells Perc 0.0 % (0.0-0.2); Platelet Count Result 197 k/mm3 (150-375); Red Blood Count 4.42 M/mm3 (4.6-6.20); White Blood Count 7.1 K/mm3 (4.5-10.0)
[2024-12-13 07:17] LABS: Alanine Aminotransferase 12 U/L (6-50); Albumin Level 2.9 g/dL (3.5-5.1); Alkaline Phosphatase 49 U/L (38-126); Anion Gap 3 mmol/L (4-12); Aspartate Amino Transferase 17 U/L (17-59); Bilirubin,Total 0.7 mg/dL (0.2-1.3); Blood Urea Nitrogen 21 mg/dL (9-20); Calcium 8.3 mg/dL (8.4-10.2); Carbon Dioxide 27 mmol/L (22-30); Chloride 108 mmol/L (98-107); Estimated CRCL calculation 90 ml/min; Estimated Glomerular Filt Rate > 60; Glucose 81 mg/dL (65-110); Potassium 3.3 mmol/L (3.4-5.0); Sodium 138 mmol/L (137-145); Total Protein 5.4 g/dL (6.3-8.2)
--- NOTE | 2024-12-13 08:27 | P.PNIM_ITS ---
Progress Note: A&P Assessment and Plan (1) Crohn's disease: Code(s): K50.90 - Crohn's disease, unspecified, without complications Status: Acute Assessment and Plan: * Admitted to hospital 12/05-12/07 for similar complaint * Continue with IV fluids * C diff negative * Continue with levofloxacin, Flagyl * Hemoccult-positive stool * He will need to follow up in office within few weeks of hospital discharge * GI consulted, appreciate further recommendations * Switched to IV Solu-Medrol, when patient is discharged will need to restart oral prednisone at 40 mg daily until he is started on biologic agent * MRI Abd to r/o PVT * Appreciate further recommendations (2) Abdominal pain: Qualifiers: Abdominal location: lower abdomen, unspecified Qualified Code(s): R10.30 - Lower abdominal pain, unspecified Code(s): R10.9 - Unspecified abdominal pain Status: Acute Assessment and Plan: * See above (3) Cirrhosis: Qualifiers: Hepatic cirrhosis type: unspecified biliary cirrhosis Qualified Code(s): K74.5 - Biliary cirrhosis, unspecified Code(s): K74.60 - Unspecified cirrhosis of liver Status: Acute Assessment and Plan: * MRI abdomen has been ordered to rule out portal vein thrombosis (4) Nicotine addiction: Code(s): F17.200 - Nicotine dependence, unspecified, uncomplicated Status: Acute Assessment and Plan: * Education on importance of cessation (5) Severe protein-calorie malnutrition: Code(s): E43 - Unspecified severe protein-calorie malnutrition Status: Acute Assessment and Plan: * Dietary consult, appreciate further recommendations (6) Diabetes: Code(s): E11.9 - Type 2 diabetes mellitus without complications Status: Acute Assessment and Plan: * Blood glucose checked t.i.d. a.c. and HS * Continue with sliding scale insulin * Continue with Jardiance * Expect hyperglycemia with steroid use Plan DVT prophylaxis: SCDs Code status: Full Disposition: Admit to General Medicine Subjective Date/time seen: 12/13/24 08:27 Interval history: 59 year old male with history of Crohn's disease and diabetes, presented to the ER with complaints of nausea, vomiting and diarrhea. 12/13/2024 Patient sitting comfortably in bed at time of examination. Denies any chest pain, shortness of breath, nausea/vomiting at this time. Still endorsing some left lower quadrant abdominal discomfort, but states that this is chronic and unchanged. GI consulted, continue IV methylprednisone 60 mg daily, switched oral 40 mg upon discharge. MRI to rule out PVT pending. Review of Systems Review of Systems: All systems reviewed & are unremarkable except as noted in HPI and below Exam Narrative: Gen - well appearing male in no acute respiratory distress who is nontoxic-appea ring lying semi recumbent in bed HEENT - normocephalic. Atraumatic. Pupils equal round and reactive. Sclera clear and anicteric. Nares patent. Oropharynx was clear. Moist mucous membranes. Neck - neck was supple. No dominant adenopathy, thyromegaly or masses. Chest - lungs are clear to auscultation bilaterally. No wheezes or crackles. CV - heart was regular rate and rhythm. S1-S2. No murmurs gallops or rubs. Abd -TTP left lower quadrant, abdomen was soft. Nondistended. Positive bowel sounds. No organomegaly or masses. Ext - no clubbing, cyanosis or edema. 2+ DP pulses bilaterally. Neuro - patient is alert and oriented x4. Strength is 5/5 in both upper and lower extremities. Cranial nerves 2-12 are intact. Speech is clear. Psych - normal mood and affect. Patient is pleasant and cooperative. Skin - warm and dry. No rashes noted. Objective Data Vital Signs Vital Signs: Vital Signs - 24 hr 12/12/24 14:45 12/12/24 19:49 12/12/24 21:16 Temperature 97.2 F L 98.1 F Pulse Rate 81 81 57 L Respiratory Rate 14 14 17 Blood Pressure 99/54 L 104/63 Pulse Oximetry 98 98 95 Oxygen Delivery Room Air 12/13/24 04:43 Temperature 98.2 F Pulse Rate 45 L Respiratory Rate 17 Blood Pressure 126/62 Pulse Oximetry 98 Oxygen Delivery Intake/Output Intake/Output: Intake & Output 12/10/24 12/11/24 12/12/24 12/13/24 23:59 23:59 23:59 23:59 Intake Total 2270 1000 Balance 2270 1000 Meds/Results Medications: Active Medications Generic Name Dose Route Start Last Admin Trade Name Freq PRN Reason Stop Dose Admin Acetaminophen 500 mg 12/12/24 08:05 Acetaminophen 500 Mg Tablet PO Q4H PRN Mild Pain (1-3) or Fever Dextrose 12.5 gm 12/12/24 06:12 Dextrose 50% 25 Gm/50 Ml Syringe IV PUSH PRN PRN Hypoglycemia Protocol Empagliflozin 25 mg 12/12/24 09:00 12/12/24 08:45 Empagliflozin 25 Mg Tablet PO 25 mg DAILY PARRISH Administration Glucose 15 gm 12/12/24 06:12 Glucose Oral Gel 15 Gm Of Glucse In 37.5 Gm Tube PO PRN PRN Hypoglycemia Protocol Dextrose 1,000 mls @ 100 mls/hr 12/12/24 06:12 Dextrose 5% 1,000 Ml IVPB PRN PRN Hypoglycemia Protocol Sodium Chloride 1,000 mls @ 100 mls/hr 12/12/24 06:15 12/13/24 05:29 Normal Saline Iv IV CONT 100 mls/hr .Q10H PARRISH Administration Levofloxacin/Dextrose 750 mg in 150 mls @ 100 mls/hr 12/12/24 09:00 12/12/24 08:45 Levaquin 750 Mg/D5w 150 Ml IVPB 100 mls/hr Q24H PARRISH Administration Metronidazole 500 mg in 100 mls @ 100 mls/hr 12/12/24 08:30 12/13/24 05:30 Flagyl 500 Mg/Iso Soln 100 Ml IVPB 100 mls/hr Q8HR PARRISH Administration Insulin Aspart 2 - 5 units 12/12/24 08:00 12/12/24 17:16 Insulin Aspart (*Bkc) 100 Units/Ml SUB-Q 2 units TIDWM PARRISH Administration Protocol Insulin Aspart 1 - 2 units 12/12/24 21:00 12/12/24 21:26 Insulin Aspart (*Bkc) 100 Units/Ml SUB-Q 1 units HS PARRISH Administration Protocol Methylprednisolone Sodium Succinate 60 mg 12/12/24 11:35 12/12/24 12:18 Methylprednisolone Sod Succ 125 Mg Vial IV PUSH 60 mg DAILY PARRISH Administration Nicotine 1 patch 12/12/24 12:10 12/12/24 12:17 Nicotine (*Pbkc) 21 Mg Patch TRANSDERM 1 patch DAILY PARRISH Administration Oxycodone/Acetaminophen 1 tablet 12/12/24 08:06 Oxycodone/Acetaminophen (*Crx) 5-325 Mg Tablet PO Q4H PRN Pain Rated 7-10 Potassium Chloride 20 meq 12/13/24 08:27 Potassium Chloride 20 Meq Er Tablet PO 12/13/24 08:28 ONCE ONE Labs Labs: Laboratory Results - last 24 hr 12/12/24 12/12/24 12/12/24 09:39 12:03 16:47 WBC RBC Hgb Hct MCV MCH MCHC RDW Plt Count MPV Immature Gran % (Auto) Neut % (Auto) Lymph % (Auto) [place] % (Auto) Eos % (Auto) Baso % (Auto) Lymph # (Auto) [place] # (Auto) Eos # (Auto) Baso # (Auto) Abs Immat Gran (auto) Absolute Neuts (auto) Absolute Nucleated RBC Nucleated RBC % Sodium Potassium Chloride Carbon Dioxide Anion Gap BUN Creatinine Estim Creat Clear Calc Estimated GFR Glucose POC Capillary Glucose 120 H 220 H Calcium Total Bilirubin AST ALT Alkaline Phosphatase Total Protein Albumin Stl Occult Blood (IFOB) Positive H C. difficile (PCR) Negative 12/12/24 12/13/24 12/13/24 21:13 05:56 07:49 WBC 7.1 RBC 4.42 L Hgb 13.1 L Hct 41.8 L MCV 94.6 MCH 29.6 MCHC 31.3 L RDW 15.0 H Plt Count 197 MPV 10.0 Immature Gran % (Auto) 0.4 Neut % (Auto) 73.4 H Lymph % (Auto) 16.4 L [place] % (Auto) 8.6 H Eos % (Auto) 0.6 Baso % (Auto) 0.6 Lymph # (Auto) 1.17 [place] # (Auto) 0.6 Eos # (Auto) 0.0 Baso # (Auto) 0.0 Abs Immat Gran (auto) 0.03 Absolute Neuts (auto) 5.2 Absolute Nucleated RBC 0.000 Nucleated RBC % 0.0 Sodium 138 Potassium 3.3 L Chloride 108 H Carbon Dioxide 27 Anion Gap 3 L BUN 21 H D Creatinine 0.65 L Estim Creat Clear Calc 90 Estimated GFR > 60 Glucose 81 POC Capillary Glucose 219 H 80 Calcium 8.3 L Total Bilirubin 0.7 AST 17 ALT 12 Alkaline Phosphatase 49 Total Protein 5.4 L Albumin 2.9 L Stl Occult Blood (IFOB) C. difficile (PCR) Quality VTE Prophylaxis VTE prophylaxis: mechanical ordered
[2024-12-13] MEDS: POTASSIUM CHLORIDE 20 MEQ ER TABLET PO (09:14)
[2024-12-13] MEDS: EMPAGLIFLOZIN 25 MG TABLET PO (09:14)
[2024-12-13] MEDS: levoFLOXacin 750 MG/D5W 150 ML 750 MG/150 ML BAG 100 MG IVPB (09:15)
[2024-12-13] MEDS: NICOTINE (*PBKC) 21 MG PATCH 1 PATCH TRANSDERM (09:15)
[2024-12-13] MEDS: INSULIN ASPART (*BKC) 100 UNITS/ML SUB-Q ×2 (12:14→17:33)
[2024-12-13 14:00] VITALS: BP 115/55; PULSE 60; RESP 18; TEMP 36.9; O2SAT 98
--- NOTE | 2024-12-13 17:29 | WPDGIPROGNO ---
Progress Note: A&P Assessment and Plan (1) Crohn's disease: Code(s): K50.90 - Crohn's disease, unspecified, without complications Status: Acute Assessment and Plan: diagnosed about 15 years ago and used to be on humira but lost insurance recent colonoscopy with active disease iv solumedrol, then will need oral prednisone with follow-up in office to hopefully start biologics (TB and HBV status negative) I think he can go home tomorrow (2) Abdominal pain: Qualifiers: Abdominal location: lower abdomen, unspecified Qualified Code(s): R10.30 - Lower abdominal pain, unspecified Code(s): R10.9 - Unspecified abdominal pain Status: Acute (3) Nicotine addiction: Code(s): F17.200 - Nicotine dependence, unspecified, uncomplicated Status: Acute Assessment and Plan: advised to stop (4) Cirrhosis: Qualifiers: Hepatic cirrhosis type: unspecified biliary cirrhosis Qualified Code(s): K74.5 - Biliary cirrhosis, unspecified Code(s): K74.60 - Unspecified cirrhosis of liver Status: Acute Assessment and Plan: former alcoholic normal liver enzymes he can also follow-up in office (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): 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 - Portal vein thrombosis Status: Acute Assessment and Plan: mri reviewed, noted cavernous transformation of PV but no thrombosis Subjective Date/time seen: 12/13/24 17:29 Interval history: diarrhea has improved, no new issues Review of Systems Review of Systems: All systems reviewed & are unremarkable except as noted in HPI and below Exam Const: General: comfortable and no acute distress HENMT: Face/Nose/Sinus: Normal nares present Eyes: General: appearance normal, both eyes and all related structures Neck: Neck: no JVD Resp: Auscultation: clear to auscultation bilaterally Cardio: Rate: regular rate Rhythm: regular rhythm GI: Inspection: non-distended GI Palp: Yes Soft to palpation Skin: General skin exam: normal color Neuro: Speech: normal speech Extrem: General: normal to inspection Psych: Mental Status: mental status grossly normal Objective Data Vital Signs Vital Signs: Vital Signs - 24 hr 12/12/24 19:49 12/12/24 21:16 12/13/24 04:43 Temperature 98.1 F 98.2 F Pulse Rate 81 57 L 45 L Respiratory Rate 14 17 17 Blood Pressure 104/63 126/62 Pulse Oximetry 98 95 98 Oxygen Delivery Room Air 12/13/24 08:00 12/13/24 14:00 Temperature 98.4 F Pulse Rate 60 Respiratory Rate 18 Blood Pressure 115/55 L Pulse Oximetry 98 Oxygen Delivery Room Air Intake/Output Intake/Output: Intake & Output 12/10/24 12/11/24 12/12/24 12/13/24 23:59 23:59 23:59 23:59 Intake Total 2420 1580 Balance 2420 1580 Meds/Results Medications: Active Medications Generic Name Dose Route Start Last Admin Trade Name Freq PRN Reason Stop Dose Admin Acetaminophen 500 mg 12/12/24 08:05 Acetaminophen 500 Mg Tablet PO Q4H PRN Mild Pain (1-3) or Fever Dextrose 12.5 gm 12/12/24 06:12 Dextrose 50% 25 Gm/50 Ml Syringe IV PUSH PRN PRN Hypoglycemia Protocol Empagliflozin 25 mg 12/12/24 09:00 12/13/24 09:14 Empagliflozin 25 Mg Tablet PO 25 mg DAILY PARRISH Administration Glucose 15 gm 12/12/24 06:12 Glucose Oral Gel 15 Gm Of Glucse In 37.5 Gm Tube PO PRN PRN Hypoglycemia Protocol Dextrose 1,000 mls @ 100 mls/hr 12/12/24 06:12 Dextrose 5% 1,000 Ml IVPB PRN PRN Hypoglycemia Protocol Sodium Chloride 1,000 mls @ 100 mls/hr 12/12/24 06:15 12/13/24 12:15 Normal Saline Iv IV CONT Not Given .Q10H PARRISH Levofloxacin/Dextrose 750 mg in 150 mls @ 100 mls/hr 12/12/24 09:00 12/13/24 09:15 Levaquin 750 Mg/D5w 150 Ml IVPB 100 mls/hr Q24H PARRISH Administration Metronidazole 500 mg in 100 mls @ 100 mls/hr 12/12/24 08:30 12/13/24 15:39 Flagyl 500 Mg/Iso Soln 100 Ml IVPB 100 mls/hr Q8HR PARRISH Administration Insulin Aspart 2 - 5 units 12/12/24 08:00 12/13/24 12:14 Insulin Aspart (*Bkc) 100 Units/Ml SUB-Q 2 units TIDWM PARRISH Administration Protocol Insulin Aspart 1 - 2 units 12/12/24 21:00 12/12/24 21:26 Insulin Aspart (*Bkc) 100 Units/Ml SUB-Q 1 units HS PARRISH Administration Protocol Methylprednisolone Sodium Succinate 60 mg 12/12/24 11:35 12/13/24 09:15 Methylprednisolone Sod Succ 125 Mg Vial IV PUSH 60 mg DAILY PARRISH Administration Nicotine 1 patch 12/12/24 12:10 12/13/24 09:15 Nicotine (*Pbkc) 21 Mg Patch TRANSDERM 1 patch DAILY PARRISH Administration Oxycodone/Acetaminophen 1 tablet 12/12/24 08:06 Oxycodone/Acetaminophen (*Crx) 5-325 Mg Tablet PO Q4H PRN Pain Rated 7-10 Radiology Results: ITS Impressions Abdomen MRI 12/13/24 16:02 IMPRESSION: 1. 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 2. Nonspecific periportal edema which may be related to the previously noted colitis. This could also be seen as sequela of right heart failure, hepatitis, cholangitis, pyelonephritis or aggressive fluid resuscitation. 3. Cholelithiasis. Labs Labs: Laboratory Results - last 24 hr 12/12/24 12/13/24 12/13/24 21:13 05:56 07:49 WBC 7.1 RBC 4.42 L Hgb 13.1 L Hct 41.8 L MCV 94.6 MCH 29.6 MCHC 31.3 L RDW 15.0 H Plt Count 197 MPV 10.0 Immature Gran % (Auto) 0.4 Neut % (Auto) 73.4 H Lymph % (Auto) 16.4 L [place] % (Auto) 8.6 H Eos % (Auto) 0.6 Baso % (Auto) 0.6 Lymph # (Auto) 1.17 [place] # (Auto) 0.6 Eos # (Auto) 0.0 Baso # (Auto) 0.0 Abs Immat Gran (auto) 0.03 Absolute Neuts (auto) 5.2 Absolute Nucleated RBC 0.000 Nucleated RBC % 0.0 Sodium 138 Potassium 3.3 L Chloride 108 H Carbon Dioxide 27 Anion Gap 3 L BUN 21 H D Creatinine 0.65 L Estim Creat Clear Calc 90 Estimated GFR > 60 Glucose 81 POC Capillary Glucose 219 H 80 Calcium 8.3 L Total Bilirubin 0.7 AST 17 ALT 12 Alkaline Phosphatase 49 Total Protein 5.4 L Albumin 2.9 L 12/13/24 12/13/24 11:34 16:41 WBC RBC Hgb Hct MCV MCH MCHC RDW Plt Count MPV Immature Gran % (Auto) Neut % (Auto) Lymph % (Auto) [place] % (Auto) Eos % (Auto) Baso % (Auto) Lymph # (Auto) [place] # (Auto) Eos # (Auto) Baso # (Auto) Abs Immat Gran (auto) Absolute Neuts (auto) Absolute Nucleated RBC Nucleated RBC % Sodium Potassium Chloride Carbon Dioxide Anion Gap BUN Creatinine Estim Creat Clear Calc Estimated GFR Glucose POC Capillary Glucose 227 H 221 H Calcium Total Bilirubin AST ALT Alkaline Phosphatase Total Protein Albumin
[2024-12-13 21:26] VITALS: BP 125/72; PULSE 51; RESP 16; TEMP 36.5; O2SAT 99
--- NOTE | 2024-12-14 02:03 | PC.NURSE ---
patient refusing fluids, requested they be stopped r/t he couldn't sleep for having to void. fluids stopped
[2024-12-14] MEDS: metroNIDAZOLE 500 MG/ISO 100ML 500 MG/100 ML BAG 100 MG IVPB (05:42)
[2024-12-14 06:00] VITALS: BP 135/80; PULSE 46; RESP 12; TEMP 36.3; O2SAT 100
[2024-12-14 08:57] LABS: Hematocrit 50.5 % (42.0-52.0); Hemoglobin 16.0 g/dL (14.0-18.0); Immature Granulocyte Percent A 0.7 % (0-0.5); Lymphocytes Absolute Auto 1.16 K/mm3 (0.9-3.2); Mean Corpuscular HGB Conc 31.7 g/dl (32-36); Mean Corpuscular Hemoglobin 29.8 pg (26-34); Mean Corpuscular Volume 94.0 fl (80-100); Nucleated Red Blood Cells Absolute Auto 0.000 K/mm3 (0.0-0.012); Nucleated Red Blood Cells Perc 0.0 % (0.0-0.2); Platelet Count Result 257 k/mm3 (150-375); Red Blood Count 5.37 M/mm3 (4.6-6.20); White Blood Count 7.2 K/mm3 (4.5-10.0)
[2024-12-14] MEDS: NICOTINE (*PBKC) 21 MG PATCH 1 PATCH TRANSDERM (09:08)
[2024-12-14] MEDS: EMPAGLIFLOZIN 25 MG TABLET PO (09:09)
[2024-12-14] MEDS: levoFLOXacin 750 MG/D5W 150 ML 750 MG/150 ML BAG 100 MG IVPB (09:09)
[2024-12-14 09:18] LABS: Alanine Aminotransferase 15 U/L (6-50); Albumin Level 3.8 g/dL (3.5-5.1); Alkaline Phosphatase 53 U/L (38-126); Anion Gap 5 mmol/L (4-12); Aspartate Amino Transferase 18 U/L (17-59); Bilirubin,Total 0.8 mg/dL (0.2-1.3); Blood Urea Nitrogen 14 mg/dL (9-20); Calcium 8.8 mg/dL (8.4-10.2); Carbon Dioxide 29 mmol/L (22-30); Chloride 104 mmol/L (98-107); Estimated CRCL calculation 103 ml/min; Estimated Glomerular Filt Rate > 60; Glucose 95 mg/dL (65-110); Potassium 3.7 mmol/L (3.4-5.0); Sodium 138 mmol/L (137-145); Total Protein 6.5 g/dL (6.3-8.2)
--- NOTE | 2024-12-14 11:37 | P.DS_ITS ---
DS: Admitting Diagnosis Discharge Date 12/14/2024 Admitting Diagnosis Acute abdominal pain, secondary to Crohn's flare, History of liver cirrhosis DS: Discharge Diagnosis Discharge Diagnosis (1) Crohn's disease: Code(s): K50.90 - Crohn's disease, unspecified, without complications Status: Acute Assessment and Plan: * Admitted to hospital 12/05-12/07 for similar complaint * Continue with IV fluids * C diff negative * Continue with levofloxacin, Flagyl * Hemoccult-positive stool * He will need to follow up in office within few weeks of hospital discharge * GI consulted, appreciate further recommendations * Switched to IV Solu-Medrol, when patient is discharged will need to restart oral prednisone at 40 mg daily until he is started on biologic agent * MRI Abd to r/o PVT * Appreciate further recommendations (2) Abdominal pain: Qualifiers: Abdominal location: lower abdomen, unspecified Qualified Code(s): R10.30 - Lower abdominal pain, unspecified Code(s): R10.9 - Unspecified abdominal pain Status: Acute Assessment and Plan: * See above (3) Cirrhosis: Qualifiers: Hepatic cirrhosis type: unspecified biliary cirrhosis Qualified Code(s): K74.5 - Biliary cirrhosis, unspecified Code(s): K74.60 - Unspecified cirrhosis of liver Status: Acute Assessment and Plan: * MRI abdomen has been ordered to rule out portal vein thrombosis (4) Nicotine addiction: Code(s): F17.200 - Nicotine dependence, unspecified, uncomplicated Status: Acute Assessment and Plan: * Education on importance of cessation (5) Severe protein-calorie malnutrition: Code(s): E43 - Unspecified severe protein-calorie malnutrition Status: Acute Assessment and Plan: * Dietary consult, appreciate further recommendations (6) Diabetes: Code(s): E11.9 - Type 2 diabetes mellitus without complications Status: Acute Assessment and Plan: * Blood glucose checked t.i.d. a.c. 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 Patient was recently admitted to [facility] 12/05-->12/07 for Crohn's disease and he was discharged on prednisone and advised to follow up with us outpatient to get him set up to start a biologic medication. He presented with intermittent bilateral lower quadrant abdominal pain. He complains of having frequent loose bowel movement, multiple times a day associated with pain. Patient has been taking naproxen twice daily Patient has a history of alcohol abuse but states that quit 20 years ago. He states that he smokes a pack or more of cigarettes daily. Denies any fever. C diff was negative. GI was consulted. Patient was examined on 12/13 with minimal abdominal discomfort specifically in the bilateral lower quadrants, however he states that this is mostly chronic and near his baseline. He understands that he has a chronic disease which has been untreated for many years and noted on previous colonoscopies is the presence of inflammation and that he will take a while to heal even if he is able to start on a biologic. GI consulted and agree with assessment, recommends continuing IV methylprednisone 60 mg daily while in the hospital was switching to oral prednisone 40 mg daily upon discharge. Patient will need follow-up in the office with GI within a few weeks of discharge in order to restart a biologic for his underlying Crohn's disease. An MRI was obtained given cirrhosis which showed chronic cavernous transformation of portal vein likely related to since resolved thrombosis of the currently patent portal veins with nonspecific periportal edema which may be related to previous noted colitis. On 12/14, patient states that his symptoms have mostly subsided at this point and he is back to his own baseline. Agree that patient is hemodynamically stable for discharge at this point. Discussed with ID for emesis regarding antibiotic coverage in the outpatient setting. Agree with levofloxacin and Flagyl for an additional to and 8 doses respectively. Patient otherwise hemodynamically stable discharge at this point. Symptoms subsided, blood work and vital signs have remained stable throughout visit. Patient will be instructed to follow-up with GI specialist in the outpatient setting regarding restarting a biologic and will be instructed to continue oral prednisone 40 mg daily until about allergy can be restarted. Patient is amenable to this plan. Status at Discharge Functional status at discharge: independent ambulation Overall status at discharge: patient is back to baseline Time Spent with Patient Time attestation: Total time spent providing and/or coordinating discharge services: 31 Exam Narrative: Gen - well appearing male in no acute respiratory distress who is nontoxic- appearing lying semi recumbent in bed HEENT - normocephalic. Atraumatic. Pupils equal round and reactive. Sclera clear and anicteric. Nares patent. Oropharynx was clear. Moist mucous membranes. Neck - neck was supple. No dominant adenopathy, thyromegaly or masses. Chest - lungs are clear to auscultation bilaterally. No wheezes or crackles. CV - heart was regular rate and rhythm. S1-S2. No murmurs gallops or rubs. Abd -TTP left lower quadrant, abdomen was soft. Nondistended. Positive bowel sounds. No organomegaly or masses. Ext - no clubbing, cyanosis or edema. 2+ DP pulses bilaterally. Neuro - patient is alert and oriented x4. Strength is 5/5 in both upper and l ower extremities. Cranial nerves 2-12 are intact. Speech is clear. Psych - normal mood and affect. Patient is pleasant and cooperative. Skin - warm and dry. No rashes noted. DS: Data Data Completed and Pending Labs on day of discharge: Labs from last 24 hours 12/14/24 12/14/24 12/13/24 08:03 07:41 20:59 WBC 7.2 RBC 5.37 Hgb 16.0 Hct 50.5 MCV 94.0 MCH 29.8 MCHC 31.7 L RDW 15.0 H Plt Count 257 MPV 10.3 Immature Gran % (Auto) 0.7 H Neut % (Auto) 76.1 H Lymph % (Auto) 16.1 L [place] % (Auto) 6.0 Eos % (Auto) 0.7 Baso % (Auto) 0.4 Lymph # (Auto) 1.16 [place] # (Auto) 0.4 Eos # (Auto) 0.1 Baso # (Auto) 0.0 Abs Immat Gran (auto) 0.05 H Absolute Neuts (auto) 5.5 Absolute Nucleated RBC 0.000 Nucleated RBC % 0.0 Sodium 138 Potassium 3.7 Chloride 104 Carbon Dioxide 29 Anion Gap 5 BUN 14 D Creatinine 0.56 L Estim Creat Clear Calc 103 Estimated GFR > 60 Glucose 95 POC Capillary Glucose 92 150 H Calcium 8.8 Total Bilirubin 0.8 AST 18 ALT 15 Alkaline Phosphatase 53 Total Protein 6.5 Albumin 3.8 12/13/24 12/13/24 16:41 11:34 WBC RBC Hgb Hct MCV MCH MCHC RDW Plt Count MPV Immature Gran % (Auto) Neut % (Auto) Lymph % (Auto) [place] % (Auto) Eos % (Auto) Baso % (Auto) Lymph # (Auto) [place] # (Auto) Eos # (Auto) Baso # (Auto) Abs Immat Gran (auto) Absolute Neuts (auto) Absolute Nucleated RBC Nucleated RBC % Sodium Potassium Chloride Carbon Dioxide Anion Gap BUN Creatinine Estim Creat Clear Calc Estimated GFR Glucose POC Capillary Glucose 221 H 227 H Calcium Total Bilirubin AST ALT Alkaline Phosphatase Total Protein Albumin Discharge Plan Discharge Attending physician on discharge: Arnold Milan Consulting providers: Randolph Sanchez; Ildefonso Roberson Discharging Clinician: Ildefonso Roberson Anticipated Discharge Date/Time: 12/14/24 11:26 Patient Disposition: Home Activity: no straining Diet: heart healthy Discharge Instructions: Discharge disposition: Home Take medications as prescribed. Your prednisone will be increased to 40 mg daily. Continue taking this until you can be started on a biologic. Monitor blood pressures Take caution while standing, rising, or moving Change positions slowly taking a break between each position change If you standing feel dizzy sit back down and take a break Encouraged to continue with yearly vaccinations Return to the emergency department if he developed sudden shortness of breath, chest pain, nausea, vomiting, upset stomach or intractable diarrhea Return to the emergency department if you develop fever greater than 101.5 Follow-up with the primary care physician within 1-2 weeks Follow-up with Dr. Hamm of gastroenterology in 1 week. Thank you for [facility] for your healthcare needs Patient Instructions: Antibiotic Form, How to Stop Smoking (ED) Patient Language: Czech Stand Alone Forms: General Discharge Information Follow-up/Referrals: Phoebe,DALY Graham [Primary Care Provider, Unknown] Randolph Sanchez MD [Physician, Gastroenterology] Discharge Medications: New metronidazole 500 mg Tablet 500 mg PO Q8HR Qty: 8 0RF prednisone 20 mg tablet 40 mg PO DAILY 30 Days Qty: 60 0RF levofloxacin 750 mg tablet 750 mg PO DAILY Qty: 2 0RF Continued glimepiride 1 mg tablet 1 mg PO BID Jardiance 25 mg tablet 25 mg PO DAILY metformin 1,000 mg tablet 1,000 mg PO BID naproxen 500 mg tablet See Rx Instructions .ROUTE .COMPLEX Qty: 60 1RF Dose Instruction: TAKE 1 TABLET BY MOUTH TWICE DAILY Rx Instructions: TAKE 1 TABLET BY MOUTH TWICE DAILY Discontinued levofloxacin 500 mg Tablet 500 mg PO DAILY Qty: 2 0RF prednisone 10 mg tablet 10 mg PO DIRECTED Qty: 70 0RF Rx Instructions: see taper instructions 40 mg daily (4 tabs) x7 days, 30 mg daily (3 tabs) x7 days, 20 mg daily (2 tabs) x7 days, 10 mg daily (1 tab) x7 days, then stop Date of admission: 12/12/24 01:21 Primary Care Provider: CarlaGladys Admitting Provider: Jerica Real Attending physician on admission: Jerica Real Condition: Stable Quality VTE Prophylaxis VTE prophylaxis: mechanical ordered
--- NOTE | 2024-12-14 16:54 | P.PNGI_ITS ---
Progress Note: A&P Assessment and Plan (1) Crohn's disease: Code(s): K50.90 - Crohn's disease, unspecified, without complications Status: Acute Assessment and Plan: diagnosed about 15 years ago and used to be on humira but lost insurance recent colonoscopy with active disease iv solumedrol and ok to transition to oral prednisone with slow taper and follow-up in office REDDY to hopefully start biologics (TB and HBV status negative) will follow as needed (2) Abdominal pain: Qualifiers: Abdominal location: lower abdomen, unspecified Qualified Code(s): R10.30 - Lower abdominal pain, unspecified Code(s): R10.9 - Unspecified abdominal pain Status: Acute (3) Nicotine addiction: Code(s): F17.200 - Nicotine dependence, unspecified, uncomplicated Status: Acute Assessment and Plan: advised to stop (4) Cirrhosis: Qualifiers: Hepatic cirrhosis type: unspecified biliary cirrhosis Qualified Code(s): K74.5 - Biliary cirrhosis, unspecified Code(s): K74.60 - Unspecified cirrhosis of liver Status: Acute Assessment and Plan: former alcoholic normal liver enzymes he can also follow-up in office (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): I81 - Portal vein thrombosis Status: Acute Assessment and Plan: mri reviewed, noted cavernous transformation of PV but no thrombosis Subjective Date/time seen: 12/14/24 16:54 Interval history: overall better and comfortable, still with diarrhea but has improved he would like to stay another day as his son won't be able to get him until tomorrow Review of Systems Review of Systems: All systems reviewed & are unremarkable except as noted in HPI and below Exam Const: General: comfortable and no acute distress HENMT: Face/Nose/Sinus: Normal nares present Eyes: General: appearance normal, both eyes and all related structures Neck: Neck: no JVD Resp: Auscultation: clear to auscultation bilaterally Cardio: Rate: regular rate Rhythm: regular rhythm GI: Inspection: non-distended GI Palp: Yes Soft to palpation Skin: General skin exam: normal color Neuro: Speech: normal speech Extrem: General: normal to inspection Psych: Mental Status: mental status grossly normal Objective Data Vital Signs Vital Signs: Vital Signs - 24 hr 12/13/24 21:26 12/14/24 06:00 Temperature 97.7 F 97.3 F L Pulse Rate 51 L 46 L Respiratory Rate 16 12 Blood Pressure 125/72 135/80 Pulse Oximetry 99 100 Intake/Output Intake/Output: Intake & Output 12/11/24 12/12/24 12/13/24 12/14/24 23:59 23:59 23:59 23:59 Intake Total 2420 3170 695.0 Balance 2420 3170 695.0 Meds/Results Medications: Active Medications Generic Name Dose Route Start Last Admin Trade Name Freq PRN Reason Stop Dose Admin Acetaminophen 500 mg 12/12/24 08:05 Acetaminophen 500 Mg Tablet PO Q4H PRN Mild Pain (1-3) or Fever Dextrose 12.5 gm 12/12/24 06:12 Dextrose 50% 25 Gm/50 Ml Syringe IV PUSH PRN PRN Hypoglycemia Protocol Empagliflozin 25 mg 12/12/24 09:00 12/14/24 09:09 Empagliflozin 25 Mg Tablet PO 25 mg DAILY PARRISH Administration Glucose 15 gm 12/12/24 06:12 Glucose Oral Gel 15 Gm Of Glucse In 37.5 Gm Tube PO PRN PRN Hypoglycemia Protocol Dextrose 1,000 mls @ 100 mls/hr 12/12/24 06:12 Dextrose 5% 1,000 Ml IVPB PRN PRN Hypoglycemia Protocol Sodium Chloride 1,000 mls @ 100 mls/hr 12/12/24 06:15 12/14/24 08:15 Normal Saline Iv IV CONT Not Given .Q10H PARRISH Insulin Aspart 2 - 5 units 12/12/24 08:00 12/14/24 11:57 Insulin Aspart (*Bkc) 100 Units/Ml SUB-Q Not Given TIDWM [facility] Protocol Insulin Aspart 1 - 2 units 12/12/24 21:00 12/13/24 21:26 Insulin Aspart (*Bkc) 100 Units/Ml SUB-Q Not Given HS PARRISH Protocol Levofloxacin 750 mg 12/15/24 09:00 Levofloxacin 750 Mg Tablet PO 12/16/24 09:01 DAILY PARRISH Methylprednisolone Sodium Succinate 60 mg 12/12/24 11:35 12/14/24 09:08 Methylprednisolone Sod Succ 125 Mg Vial IV PUSH 60 mg DAILY PARRISH Administration Metronidazole 500 mg 12/14/24 14:00 12/14/24 14:32 Metronidazole 500 Mg Tablet PO 12/16/24 22:01 500 mg Q8HR PARRISH Administration Nicotine 1 patch 12/12/24 12:10 12/14/24 09:08 Nicotine (*Pbkc) 21 Mg Patch TRANSDERM 1 patch DAILY PARRISH Administration Oxycodone/Acetaminophen 1 tablet 12/12/24 08:06 Oxycodone/Acetaminophen (*Crx) 5-325 Mg Tablet PO Q4H PRN Pain Rated 7-10 Radiology Results: ITS Impressions Abdomen MRI 12/13/24 16:02 IMPRESSION: 1. 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 2. Nonspecific periportal edema which may be related to the previously noted colitis. This could also be seen as sequela of right heart failure, hepatitis, cholangitis, pyelonephritis or aggressive fluid resuscitation. 3. Cholelithiasis. Labs Labs: Laboratory Results - last 24 hr 12/13/24 12/13/24 12/14/24 16:41 20:59 07:41 WBC RBC Hgb Hct MCV MCH MCHC RDW Plt Count MPV Immature Gran % (Auto) Neut % (Auto) Lymph % (Auto) [place] % (Auto) Eos % (Auto) Baso % (Auto) Lymph # (Auto) [place] # (Auto) Eos # (Auto) Baso # (Auto) Abs Immat Gran (auto) Absolute Neuts (auto) Absolute Nucleated RBC Nucleated RBC % Sodium Potassium Chloride Carbon Dioxide Anion Gap BUN Creatinine Estim Creat Clear Calc Estimated GFR Glucose POC Capillary Glucose 221 H 150 H 92 Calcium Total Bilirubin AST ALT Alkaline Phosphatase Total Protein Albumin 12/14/24 12/14/24 08:03 11:32 WBC 7.2 RBC 5.37 Hgb 16.0 Hct 50.5 MCV 94.0 MCH 29.8 MCHC 31.7 L RDW 15.0 H Plt Count 257 MPV 10.3 Immature Gran % (Auto) 0.7 H Neut % (Auto) 76.1 H Lymph % (Auto) 16.1 L [place] % (Auto) 6.0 Eos % (Auto) 0.7 Baso % (Auto) 0.4 Lymph # (Auto) 1.16 [place] # (Auto) 0.4 Eos # (Auto) 0.1 Baso # (Auto) 0.0 Abs Immat Gran (auto) 0.05 H Absolute Neuts (auto) 5.5 Absolute Nucleated RBC 0.000 Nucleated RBC % 0.0 Sodium 138 Potassium 3.7 Chloride 104 Carbon Dioxide 29 Anion Gap 5 BUN 14 D Creatinine 0.56 L Estim Creat Clear Calc 103 Estimated GFR > 60 Glucose 95 POC Capillary Glucose 178 H Calcium 8.8 Total Bilirubin 0.8 AST 18 ALT 15 Alkaline Phosphatase 53 Total Protein 6.5 Albumin 3.8
--- NOTE | 2024-12-15 08:06 | PM.IMHP ---
H&P: HPI History of Present Illness Date/Time: 12/15/24 08:06 Chief Complaint: abdominal pain PMFSH Past Medical History Medical History (Updated 12/13/24 @ 17:32 by Randolph Sanchez MD) Cavernous transformation of portal vein Abdominal pain Crohn disease Diabetes Surgical History Surgical History History of partial colectomy Hx of repair of right rotator cuff DOS unknown- Dr. Lawson Family History Family History Unknown Asthma Cerebrovascular accident Depression Diabetes mellitus Lung cancer Social History Social History Social History: caffeine use Smoking packs per day: 2 Smoking cigarettes per day: 40.0 Smoking status: Current every day smoker Tobacco type: cigarettes Alcohol intake: never Substance use: never Substance use type: does not use Lack of Transportation: No Lack of Food: Sometimes True Current Housing: I Do Not Have Housing Concerned About Future Housing: YES Difficulty Paying Gas/Electric Bills: YES Difficulty Paying for Meds: No Currently Unemployed: No Education: High School Diploma/GED Difficulty w/ Childcare or Family Care: No Living arrangements: with family Occupation/Education: occupation 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 [employer] Gender identity (if verbalized by the patient): Male Spiritual care concerns: No Meds Home Medications and Allergies Home Medications ?Medication ?Instructions ?Recorded ?Confirmed ?Type metformin 1,000 mg tablet 1,000 mg PO BID 08/27/23 12/12/24 History naproxen 500 mg tablet See Rx Instructions .Route 11/06/24 12/12/24 Rx .COMPLEX #60 tabs empagliflozin 25 mg tablet 25 mg PO DAILY 12/06/24 12/12/24 History (Jardiance) glimepiride 1 mg tablet 1 mg PO BID 12/06/24 12/12/24 History levofloxacin 750 mg tablet 750 mg PO DAILY #2 tabs 12/14/24 Rx metronidazole 500 mg tablet 500 mg PO Q8HR #8 tabs 12/14/24 Rx prednisone 20 mg tablet 40 mg (2 x 20 mg) PO DAILY 1 month 12/14/24 Rx #60 tabs Allergies Allergy/AdvReac Type Severity Reaction Status Date / Time No Known Allergies Allergy Verified 12/12/24 03:23 Exam Const: General: comfortable HENMT: Mouth: Yes moist mucous membranes Neck: Neck: supple Cardio: Rate: regular rate Rhythm: regular rhythm GI: GI Palp: Yes Soft to palpation and Yes Tenderness to palpation present (GI) Neuro: General: gait normal Speech: normal speech Extrem: General: normal to inspection Psych: Mental Status: mental status grossly normal H&P: Results Labs Labs: Short CBC 12/14/24 Range/Units 08:03 WBC 7.2 (4.5-10.0) K/mm3 Hgb 16.0 (14.0-18.0) g/dL Hct 50.5 (42.0-52.0) % Plt Count 257 (150-375) k/mm3 BMP 12/14/24 08:03 Sodium 138 Potassium 3.7 Chloride 104 Carbon Dioxide 29 BUN 14 D Creatinine 0.56 L Glucose 95 Calcium 8.8 Liver Function 12/14/24 Range/Units 08:03 Total Bilirubin 0.8 (0.2-1.3) mg/dL AST 18 (17-59) U/L ALT 15 (6-50) U/L Alkaline Phosphatase 53 (38-126) U/L Albumin 3.8 (3.5-5.1) g/dL
== END 2024-12-14 17:03 | disposition home or self-care (01) ==
LOC: ANHED 23:56 → ANH3MEDSUR 12-12 03:09
PROVIDERS: Internal Medicine; Physician Assistant; Admitting Provider General Practice; Emergency Provider Emergency Medicine; PCP Physician Assistant; Visit Provider General Practice
DX: K50.10 Crohn's disease of large intestine without complications (principal); R10.30 Lower abdominal pain, unspecified; K52.9 Noninfective gastroenteritis and colitis, unspecified; R15.9 Full incontinence of feces; R15.2 Fecal urgency; K74.5 Biliary cirrhosis, unspecified; I87.8 Other specified disorders of veins; E11.9 Type 2 diabetes mellitus without complications; Z79.84 Long term (current) use of oral hypoglycemic drugs; E43 Unspecified severe protein-calorie malnutrition; R63.4 Abnormal weight loss; Z68.1 Body mass index [BMI] 19.9 or less, adult; K80.20 Calculus of gallbladder without cholecystitis without obstruction; F17.210 Nicotine dependence, cigarettes, uncomplicated; Z90.49 Acquired absence of other specified parts of digestive tract; Z98.890 Other specified postprocedural states; Z80.1 Family history of malignant neoplasm of trachea, bronchus and lung; Z82.5 Family history of asthma and other chronic lower respiratory diseases; Z82.3 Family history of stroke; Z83.3 Family history of diabetes mellitus
CPT/HCPCS: 36415; 74183; 80053; 81003; 82274; 82948; 83690; 83735; 85025; 87045; 87046; 87427; 87493; 96361; 96365; 96366; 96367; 96368; 96374; 96375; 99285; A9270; A9577; G0378; J1815; J1836; J1885; J1956; J2919; J7030; J7512

== ENCOUNTER 2024-12-19 06:34 | Emergency (ER) | payer BC, SELFPAY ==
--- OUTSIDE RECORDS SUMMARY | 2010-02-11 07:45 | XMS_ITS | Continuity of Care Document ---
Author Organization [facility] Address [address] [place] [address] Phone Care Team Providers Care Tassel Making Machine Operator Name Role Phone Lizarraga OD, Derrell Unavailable [...] Diagnoses Date Provider Providers Copied on Encounter [facility], [address] [place] [address] [address], [place], [place], [address], [place] tel:[phone] [facility] No Information 3-201 0 Lizarraga OD Derrell. [address] [facility] , [address], [place], [place], [facility], . tel:[phone] [facility], [address] [place] [address] [address], [place], [place], [address], [place] tel:[phone] [facility] No Information 5-200 9 Krishnasamy Osbaldo. [address] [facility] [address], [place], [place], [facility], [place]. tel:[phone] Office/outpat ient Visit, Est [facility], [address] [place] [address] [address], [place], [place], [address], [place] tel:[phone] [facility] [place] No Information 0200 9 Marimar Cleary. [address] [facility] [address], [place], [address], [place]. tel:[phone] [facility], [address], [place], [place], [address], [place] tel:[phone] [facility] No Information 7200 9 Paulinajanett Hidalgo. [address] [facility] , [address], [place], [address], [place]. tel:[phone] [facility], [address], [place], [place], [address], [place] tel:[phone] [facility] No Information 1200 7 Wankum Joaquín. [address] [facility] [employer], [facility] A, [place], [place], [address], [place]. tel:[phone] [facility], [address], [place], [place], [address], [place] tel:[phone] [facility] No Information 4200 7 Wankum Joaquín. [address] [facility], [facility] A, [place], [place], [address], [place]. tel:[phone] Family History Family Member Type Diagnosis Age At Onset No Information Payers Payer name Insurance type Covered alliance party ID Carlosjany roderickdeborah(s) [facility] [id number] Social History Type Description Quantity Date Captured [...]
--- NOTE | ~2024-12-19 | CT_ITS ---
CT abdomen pelvis w con Clinical History: Abdominal pain. Comparison: CT abdomen and pelvis 12/05/2024 MRI abdomen 12/13/2024 Technique: Axial images lung bases to symphysis pubis IV contrast information not listed in PACS Coronal, sagittal reformats CT images acquired with automatic exposure control for dose reduction DLP: 237 mGy-cm Findings: Lung bases: Emphysema. Visualized heart and pericardium: Coronary artery calcifications. Liver: Mild intrahepatic biliary ductal dilatation. Gallbladder: Chronic contraction around multiple gallstones. Spleen: Unremarkable. Pancreas: Unremarkable. Adrenal glands: Unremarkable. Kidneys: Right kidney- No hydronephrosis. No renal stones. Probable tiny upper pole cyst. Left kidney- No hydronephrosis. No renal stones. Distal esophagus/stomach: Unremarkable. Small bowel loops: Distal ileal wall thickening. Colon: Mild wall thickening distally. Appendix not seen. Suture line descending segment, with small unchanged pericolonic focus probably postoperative. Nodes: No enlarged nodes. Peritoneum: No ascites. No free air. Urinary bladder: Mild wall thickening but under distended. Prostate: Unremarkable. Bones: No acute bony abnormality. Soft tissues: Abdominal wall hernia mesh. Aorta: No aneurysm or dissection. Atherosclerotic disease. IVC: Unremarkable. Main portal vein/SMV/splenic vein: Patent. Extensive venous collateral network within monroe hepatis. IMPRESSION: 1. Distal ileitis and distal colitis. 2. Otherwise no significant change from recent CT or MRI. 3. Additional findings as above. Reviewed, dictated and finalized at location R.
[2024-12-19 06:36] VITALS: BP 110/65; PULSE 65; RESP 18; TEMP 36.8; O2SAT 100
--- OUTSIDE RECORDS SUMMARY | 2024-12-19 07:11 | XMS_ITS | Clinical Summary ---
Author Organization [facility] Address [address] [place] [address] Care Team Providers Care Anvilsmith Name Role Phone Gladys Delgado Primary Care Pr ovider Source Comments [facility],non-owned Affiliates and Associated Physician Practices is amultiple site organization consisting of ambulatory clinics and hospital sitesin [place], [place], [place] and [place]. This disclosure is being madepursuant to the Care Everywhere program and may not contain all information available regarding this patient. 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 Here today for colonoscopy to [...] by the physician, the nurse and the customer support technician. The procedure was verified in the [...] as scheduled. Procedure Code(s): --- Professional --- 11906, Colonoscopy, flexible, proximal to splenic flexure; with biopsy, single or multiple --- Technical --- 87996, Colonoscopy, flexible, proximal to splenic flexure; with biopsy, single or multiple Diagnosis Code(s): --- Professional --- 555.9, Regional enteritis of unspecified site --- Technical --- 555.9, Regional enteritis of unspecified site CPT copyright 2013 [employer]. All rights reserved. The codes documented in this report are preliminary and upon catshovel driver review may be revised to meet current compliance requirements. Attending Participation: I was present and participated during the entire procedure, including non-cooley portions. ____ Catalina Verma MD 11/22/2014 12:10 PM Number of Addenda: 0 Note Initiated On: 11/22/2014 10:46 AM [facility] 11/22/2014 10:4 6 AM CDT us Catalina Verma MD GI PROCEDURE ORDERABLES Ed ited Result - Final [facility] from Last 3 Months or Most Recently Relevant to Health Maintenance Insurance MEDICAID - [facility] MEDICAID SELF PAY NO INSURANCE Member Subscriber Plan / Payer (Ef fective for All Dates) Name:Jose C Mortensen Member ID:Not on file Relation to Subscriber:Not on file Name:JOSE C MORTENSEN Subscriber ID:Not on file (Home) Address: [address] [address] Payer ID:Not on file Group ID:Not on file Type:Self Pay Address: [place], [place] Care Teams Anvilsmith Relationship Specialty Start Date End Date Gladys Delgado PA PCP - General Physician Merchandise Stocker 11/22/14
--- OUTSIDE RECORDS SUMMARY | 2024-12-19 07:11 | XMS_ITS | Clinical Summary ---
Author Organization [facility] Address [facility] [place] [address] Care Team Providers Care Snowboard Instructor Name Role Phone Unavailable Primary Care Provider [...]
--- NOTE | 2024-12-19 07:21 | ED.GENADULT ---
HPI - General Adult General Chief complaint: Abdominal Pain Stated complaint: ABD PAIN Time Seen by Provider: 12/19/24 06:55 History of Present Illness HPI narrative: 59-year-old male with history of Crohn's disease presents to the emergency department for evaluation for persistent diarrhea. Patient does have history of Crohn's disease diagnosed by 15 years ago. Patient had been on Humira but is not on it now due to lack of insurance. Patient did have a recent colonoscopy that did show active disease. Patient did have a GI consult on 12/14 and was advised to started on prednisone and have outpatient follow-up. Patient returns to the emergency department today complaining of persistent diarrhea. Related Data Home Medications ?Medication ?Instructions ?Recorded ?Confirmed ?Last Taken ?Type metformin 1,000 mg tablet 1,000 mg PO BID 08/27/23 12/12/24 Unknown History empagliflozin 25 mg tablet 25 mg PO DAILY 12/06/24 12/12/24 Unknown History (Jardiance) glimepiride 1 mg tablet 1 mg PO BID 12/06/24 12/12/24 Unknown History Allergies Allergy/AdvReac Type Severity Reaction Status Date / Time No Known Allergies Allergy Verified 12/12/24 03:23 Review of Systems Review of Systems: All systems reviewed & are unremarkable except as noted in HPI and below PMFSH Past Medical History Medical History (Updated 12/19/24 @ 10:13 by Sky Lantigua MD) Cavernous transformation of portal vein Abdominal pain Crohn disease Diabetes Surgical History Surgical History History of partial colectomy Hx of repair of right rotator cuff DOS unknown- Dr. Lawson Family History Family History Unknown Asthma Cerebrovascular accident Depression Diabetes mellitus Lung cancer Social History Social History Social History: caffeine use Smoking packs per day: 2 Smoking cigarettes per day: 40.0 Smoking status: Current every day smoker Tobacco type: cigarettes Alcohol intake: never Substance use: never Substance use type: does not use Lack of Transportation: No Lack of Food: Sometimes True Current Housing: I Do Not Have Housing Concerned About Future Housing: YES Difficulty Paying Gas/Electric Bills: YES Difficulty Paying for Meds: No Currently Unemployed: No Education: High School Diploma/GED Difficulty w/ Childcare or Family Care: No Living arrangements: with family Occupation/Education: occupation 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 HEAD: normocephalic, atraumatic. EYES: PERRLA/EOMI, conjunctivae clear. NOSE: Normal no drainage EARS:TMS clear with good light reflex. THROAT: Pharynx clear, no exudate. NECK: Supple. No adenopathy, no masses. RESPIRATORY: Airway patent, respirations nonlabored. Clear to auscultation bilaterally, no rales, rhonchi, wheezing. CARDIOVASCULAR: Regular rate and rhythm without murmurs rubs or gallops. ABDOMINAL: No reproducible abdominal tenderness to palpation MUSCULOSKELETAL: Moves all extremities. Strength/ROM intact, No edema, No calf tenderness. NEURO: Alert. Cranial nerves II through XII intact. Good gait. Good coordination SKIN: Warm, dry. Normal Color Course Vital Signs Vital signs: Vital Signs Temperature 98.2 F 12/19/24 06:36 Pulse Rate 65 12/19/24 06:36 Respiratory Rate 18 12/19/24 06:36 Blood Pressure 110/65 12/19/24 06:36 Pulse Oximetry 100 12/19/24 06:36 Temperature 98.2 F 12/19/24 06:36 Pulse Rate 88 12/19/24 12:38 Respiratory Rate 14 12/19/24 12:38 Blood Pressure 111/72 12/19/24 12:38 Pulse Oximetry 98 12/19/24 12:38 Medical Decision Making [facility] Narrative Medical decision making narrative: 59-year-old male presents to the emergency department for evaluation for persistent diarrhea. Patient is currently afebrile with no leukocytosis hemoglobin 15.1. INR 1.0. Patient has no significant acute abnormalities on the patient's CMP. Does have elevated blood sugar of 255 lactic acid 2.4 but patient was treated with 2 L of lactated Ringer's. UA was negative for infection. C diff was negative. Stool culture is pending. CT scan does show evidence of ileitis and colitis. Patient does have history of Crohn's and is currently taking prednisone. Patient was advised to switch to a clear liquid diet and to continue to have close outpatient follow-up with GI. Suspect patient does have a Crohn's flare, patient is still taking his prednisone. Patient has no evidence of abscess or perforation. Patient's hemoglobin is within normal limits. Patient was comfortable plan for discharge and close follow-up with GI. Differential Diagnosis Differential Diagnosis: Colitis, diverticulitis, Crohn's disease flare, bowel obstruction, constipation, C diff Vital Signs Vital Signs: Vital Signs Temperature 98.2 F 12/19/24 06:36 Pulse Rate 65 12/19/24 06:36 Respiratory Rate 18 12/19/24 06:36 Blood Pressure 110/65 12/19/24 06:36 Pulse Oximetry 100 12/19/24 06:36 Temperature 98.2 F 12/19/24 06:36 Pulse Rate 88 12/19/24 12:38 Respiratory Rate 14 12/19/24 12:38 Blood Pressure 111/72 12/19/24 12:38 Pulse Oximetry 98 12/19/24 12:38 Lab Data Lab results reviewed: Yes I reviewed the patient's lab results. 12/19/24 07:49 12/19/24 07:49 Labs: Lab Results 12/19/24 12/19/24 12/19/24 Range/Units 07:49 08:31 08:35 WBC 9.8 (4.5-10.0) K/mm3 RBC 5.03 (4.6-6.20) M/mm3 Hgb 15.1 (14.0-18.0) g/dL Hct 47.0 (42.0-52.0) % MCV 93.4 (80-100) fl MCH 30.0 (26-34) pg MCHC 32.1 (32-36) g/dl RDW 15.0 H (11.5-14.5) % Plt Count 200 (150-375) k/mm3 MPV 10.0 (7.4-10.4) fl Immature Gran % (Auto) 0.8 H (0-0.5) % Neut % (Auto) 93.1 H (45.5-73.1) % Lymph % (Auto) 2.5 L (18.3-44.2) % [place] % (Auto) 3.5 (2.6-8.5) % Eos % (Auto) 0.0 (0-4.4) % Baso % (Auto) 0.1 L (0.2-1.2) % Lymph # (Auto) 0.25 L (0.9-3.2) K/mm3 [place] # (Auto) 0.3 (0.1-0.6) K/mm3 Eos # (Auto) 0.0 (0-0.3) K/mm3 Baso # (Auto) 0.0 (0.0-0.1) K/mm3 Abs Immat Gran (auto) 0.08 H (0.00-0.031) K/mm3 Absolute Neuts (auto) 9.2 H (1.3-6.7) K/mm3 Absolute Nucleated RBC 0.000 (0.0-0.012) K/mm3 Nucleated RBC % 0.0 (0.0-0.2) % PT 13.4 (11.1-14.7) Seconds INR 1.0 APTT 24.9 (22.3-36.8) Seconds Sodium 134 L (137-145) mmol/L Potassium 4.2 (3.4-5.0) mmol/L Chloride 100 (98-107) mmol/L Carbon Dioxide 29 (22-30) mmol/L Anion Gap 5 (4-12) mmol/L BUN 31 H D (9-20) mg/dL Creatinine 0.56 L (0.7-1.3) mg/dL Estim Creat Clear Calc 103 ml/min Estimated GFR > 60 (59 - ) Glucose 255 H (65-110) mg/dL Lactic Acid 2.4 H (0.7-2.0) mmol/L Calcium 9.0 (8.4-10.2) mg/dL Total Bilirubin 0.5 (0.2-1.3) mg/dL AST 17 (17-59) U/L ALT 19 (6-50) U/L Alkaline Phosphatase 52 (38-126) U/L Total Protein 6.0 L (6.3-8.2) g/dL Albumin 3.5 (3.5-5.1) g/dL Lipase 154 (23-300) U/L Urine Color Yellow (Yellow) Urine Appearance Clear (Clear) Urine pH 5.5 (5.0-9.0) Ur Specific [place] 1.043 H (1.001-1.035) Urine Protein Negative (Negative) mg/dL Urine Glucose (UA) 3+ H (Negative) mg/dL Urine Ketones Trace H (Negative) mg/dL Ur Blood (Man) Negative (Negative) Urine Nitrate Negative (Negative) Urine Bilirubin Negative (Negative) Urine Urobilinogen 0.2 (<2.0) mg/dL Leukocyte Esterase Rfl Negative (Negative) HERMINIO/UL C. difficile (PCR) Negative (NEGATIVE) Imaging Data Radiologist's impression: Impressions Abdomen/Pelvis CT 12/19/24 09:03 IMPRESSION: 1. Distal ileitis and distal colitis. 2. Otherwise no significant change from recent CT or MRI. 3. Additional findings as above. Discharge Plan Discharge Clinical Impression: Colitis, Ileitis, Crohn's disease Patient Disposition: Home Condition: Stable Instructions: Antibiotic Form, Crohn Disease (ED), Clear Liquid Diet (ED) Additional Instructions: Continue to have close follow-up with GI, Dr. Hamm, as outpatient. Continue the previously prescribed steroids as directed. Clear liquid diet for the next 1-3 days. Have close follow-up with your primary care physician. If you have any worsening symptoms then please call or return to the emergency department. Patient Language: Kyrgyz Prescriptions: New ondansetron 4 mg tablet,disintegrating 4 mg PO Q8H PRN (Reason: nausea and vomiting) Qty: 14 0RF No Action metronidazole 500 mg Tablet 500 mg PO Q8HR Qty: 8 0RF prednisone 20 mg tablet 40 mg PO DAILY 30 Days Qty: 60 0RF levofloxacin 750 mg tablet 750 mg PO DAILY Qty: 2 0RF glimepiride 1 mg tablet 1 mg PO BID Jardiance 25 mg tablet 25 mg PO DAILY metformin 1,000 mg tablet 1,000 mg PO BID naproxen 500 mg tablet See Rx Instructions .ROUTE .COMPLEX Qty: 60 1RF Dose Instruction: TAKE 1 TABLET BY MOUTH TWICE DAILY Rx Instructions: TAKE 1 TABLET BY MOUTH TWICE DAILY Follow-up/Referrals: Phoebe,DALY Graham [Primary Care Provider, Unknown] Randolph Sanchez MD [Physician, Gastroenterology]
[2024-12-19] MEDS: LACTATED RINGERS 1,000 ML 999 ML IV CONT ×2 (07:45→11:00)
[2024-12-19 07:57] LABS: Hematocrit 47.0 % (42.0-52.0); Hemoglobin 15.1 g/dL (14.0-18.0); Immature Granulocyte Percent A 0.8 % (0-0.5); Lymphocytes Absolute Auto 0.25 K/mm3 (0.9-3.2); Mean Corpuscular HGB Conc 32.1 g/dl (32-36); Mean Corpuscular Hemoglobin 30.0 pg (26-34); Mean Corpuscular Volume 93.4 fl (80-100); Nucleated Red Blood Cells Absolute Auto 0.000 K/mm3 (0.0-0.012); Nucleated Red Blood Cells Perc 0.0 % (0.0-0.2); Platelet Count Result 200 k/mm3 (150-375); Red Blood Count 5.03 M/mm3 (4.6-6.20); White Blood Count 9.8 K/mm3 (4.5-10.0)
[2024-12-19 08:10] LABS: INR 1.0; Prothrombin Time 13.4 Seconds (11.1-14.7)
[2024-12-19 08:11] LABS: Partial Thromboplastin Time 24.9 Seconds (22.3-36.8)
[2024-12-19 08:36] LABS: Alanine Aminotransferase 19 U/L (6-50); Albumin Level 3.5 g/dL (3.5-5.1); Alkaline Phosphatase 52 U/L (38-126); Anion Gap 5 mmol/L (4-12); Aspartate Amino Transferase 17 U/L (17-59); Bilirubin,Total 0.5 mg/dL (0.2-1.3); Blood Urea Nitrogen 31 mg/dL (9-20); Calcium 9.0 mg/dL (8.4-10.2); Carbon Dioxide 29 mmol/L (22-30); Chloride 100 mmol/L (98-107); Estimated CRCL calculation 103 ml/min; Estimated Glomerular Filt Rate > 60; Glucose 255 mg/dL (65-110); Lipase 154 U/L (23-300); Potassium 4.2 mmol/L (3.4-5.0); Sodium 134 mmol/L (137-145); Total Protein 6.0 g/dL (6.3-8.2)
[2024-12-19 08:41] LABS: Add Urine Microscopic? NO; Appearance Urine Clear (Clear); Glucose Urine UA 3+ mg/dL (Negative); Leukocyte Esterase Ur Negative LEU/UL (Negative); Nitrate Urine Negative (Negative); Specific Grav Ur 1.043 (1.001-1.035)
--- NOTE | 2024-12-19 08:50 | PC.NURSE ---
Pt came back from the restroom and said his IV fell out, catheter removed intact. Another IV inserted to continue fluids.
[2024-12-19 09:27] VITALS: BP 106/72; PULSE 87; RESP 16; O2SAT 100
[2024-12-19 09:31] LABS: Toxigenic C. Diff NEGATIVE (NEGATIVE)
[2024-12-19 12:38] VITALS: BP 111/72; PULSE 88; RESP 14; O2SAT 98
== END 2024-12-19 12:39 | disposition home or self-care (01) ==
PROVIDERS: Emergency Provider Emergency Medicine; PCP Physician Assistant
DX: K52.9 Noninfective gastroenteritis and colitis, unspecified (principal); K50.90 Crohn's disease, unspecified, without complications; E11.9 Type 2 diabetes mellitus without complications; F17.210 Nicotine dependence, cigarettes, uncomplicated; Z90.49 Acquired absence of other specified parts of digestive tract; Z79.84 Long term (current) use of oral hypoglycemic drugs
CPT/HCPCS: 36415; 74177; 80053; 81003; 83605; 83690; 85025; 85610; 85730; 87045; 87046; 87427; 87493; 96360; 96361; 99284; J7120; Q9967

== ENCOUNTER 2025-01-23 09:44 | Outpatient (CLI) | payer BC, SELFPAY ==
--- OUTSIDE RECORDS SUMMARY | 2010-02-11 06:45 | XMS_ITS | Continuity of Care Document ---
Author Organization [facility] Address [address] [place] [address] Phone Care Team Providers Care Tile Edger Name Role Phone Lizarraga OD, Derrell Unavailable Unavailable Procedures Procedure Date Eye Exam Established Pt Remove Foreign Body From Eye Office/outpatient Visit, Est Remove Foreign Body From Eye Eye Exam & Treatment Remove Foreign Body From Eye Advance Directives Directive Yes / No Effective Date File Name No Information Encounters Encounter Description Practice Location Reason(s) For Visit Diagnoses Date Provider Providers Copied on Encounter [facility], [address] [place] [address] [address], [place], [place], [address], [place] tel:[phone] [facility] No Information 3-201 0 Lizarraga OD Derrell. [address] [facility] , [address], [place], [place], [facility], . tel:[phone] [facility], [address] [place] [address] [address], [place], [place], [address], [place] tel:[phone] [facility] No Information 5-200 9 Krishnasamy Osbaldo. [address] [facility] [address], [place], [place], [facility], [place]. tel:[phone] Office/outpat ient Visit, Est [facility], [address] [place] [address] [address], [place], [place], [address], [place] tel:[phone] [facility] No Information 0200 9 Marimar Cleary. [address], [place], [address], [place]. tel:[phone] [facility], [address], [place], [place], [address], [place] tel:[phone] [facility] No Information 7200 9 Paulinajanett Hidalgo. [address] [facility] , [address], [place], [address], [place]. tel:[phone] [facility], [address], [place], [place], [address], [place] tel:[phone] [facility] No Information 1200 7 Wankum Joaquín. [address] [facility] [employer], [facility] A, [place], [place], [address], [place]. tel:[phone] [facility], [address], [place], [place], [address], [place] tel:[phone] [facility] No Information 4200 7 Wankum Joaquín. [address] [facility], [facility] A, [place], [place], [address], [place]. tel:[phone] Family History Family Member Type Diagnosis Age At Onset No Information Payers Payer name Insurance type Covered democrat ID Carlosjany orderickdeborah(s) [facility] [id number] Social History Type Description Quantity Date Captured Comments Sex Male Smoking Status No Information Chief Complaint And Reason For Visit No Information Reason For Referral Reason For Referral No Information History Of Present Illness Encounter Date Complaint History Of Prese nt Illness No Information Functional Status Date Functional Assessmen t No Information Instructions Date Instruction Additional Infor mation No Information Assessments Type Assessment Date No Information Patient Care Teams Name Effective Dates (start - stop) Status Members No Information
[2025-01-23 10:20] LABS: Hematocrit 46.0 % (42.0-52.0); Hemoglobin 14.9 g/dL (14.0-18.0); Immature Granulocyte Percent A 0.5 % (0-0.5); Lymphocytes Absolute Auto 0.60 K/mm3 (0.9-3.2); Mean Corpuscular HGB Conc 32.4 g/dl (32-36); Mean Corpuscular Hemoglobin 30.6 pg (26-34); Mean Corpuscular Volume 94.5 fl (80-100); Nucleated Red Blood Cells Absolute Auto 0.000 K/mm3 (0.0-0.012); Nucleated Red Blood Cells Perc 0.0 % (0.0-0.2); Platelet Count Result 231 k/mm3 (150-375); Red Blood Count 4.87 M/mm3 (4.6-6.20); White Blood Count 7.9 K/mm3 (4.5-10.0)
[2025-01-23 10:29] LABS: Ammonia < 9 umol/L (9-30)
[2025-01-23 10:44] LABS: Alanine Aminotransferase 19 U/L (6-50); Albumin Level 3.6 g/dL (3.5-5.1); Alkaline Phosphatase 48 U/L (38-126); Anion Gap 6 mmol/L (4-12); Aspartate Amino Transferase 25 U/L (17-59); Bilirubin,Total 0.9 mg/dL (0.2-1.3); Blood Urea Nitrogen 22 mg/dL (9-20); Calcium 8.4 mg/dL (8.4-10.2); Carbon Dioxide 26 mmol/L (22-30); Chloride 106 mmol/L (98-107); Cholesterol 121 mg/dL (0-200); Estimated Glomerular Filt Rate > 60; Glucose 143 mg/dL (65-110); HDL Direct 35 mg/dL; Sodium 138 mmol/L (137-145); Total Protein 6.0 g/dL (6.3-8.2); Triglycerides 100 mg/dL (<150)
[2025-01-23 10:51] LABS: Potassium 3.2 mmol/L (3.4-5.0)
[2025-01-23 10:53] LABS: Free T4 Free Thyroxine 1.53 ng/dL (0.78-2.19)
[2025-01-23 10:55] LABS: MALB Creatinine Ratio 13.5 mg/g (0-30)
--- OUTSIDE RECORDS SUMMARY | 2025-01-23 11:10 | XMS_ITS | Clinical Summary ---
Author Organization [facility] Address [address] [place] [address] Care Team Providers Care Foam Rubber Fabricator Name Role Phone Gladys Delgado Primary Care Pr ovider Source Comments [facility],non-owned Affiliates and Associated Physician Practices is amultiple site organization consisting of ambulatory clinics and hospital sitesin [place], [place], [place] and [place]. This disclosure is being madepursuant to the Care Everywhere program and may not contain all information available regarding this patient. 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 Here today for colonoscopy [...] by the physician, the nurse and the sewer and drain technician. The procedure was verified in the [...] as scheduled. Procedure Code(s): --- Professional --- 61525, Colonoscopy, flexible, proximal to splenic flexure; with biopsy, single or multiple --- Technical --- 17598, Colonoscopy, flexible, proximal to splenic flexure; with biopsy, single or multiple Diagnosis Code(s): --- Professional --- 555.9, Regional enteritis of unspecified site --- Technical --- 555.9, Regional enteritis of unspecified site CPT copyright 2013 [employer]. All rights reserved. The codes documented in this report are preliminary and upon satellite dish technician review may be revised to meet current compliance requirements. Attending Participation: I was present and participated during the entire procedure, including non-cooley portions. ____ Catalina Verma MD 11/22/2014 12:10 PM Number of Addenda: 0 Note Initiated On: 11/22/2014 10:46 AM [facility] 11/22/2014 10:4 6 AM CDT us Catalina Verma MD GI PROCEDURE ORDERABLES Ed ited Result - Final [facility] from Last 3 Months or Most Recently Relevant to Health Maintenance Insurance SELF PAY NO INSURANCE Member Subscriber Plan / Payer (Ef fective for All Dates) Name:Jose C Mortensen Member ID:Not on file Relation to Subscriber:Not on file Name:JOSE C MORTENSEN Subscriber ID:Not on file (Home) Address: [address] [place] [id number] Payer ID:Not on file Group ID:Not on file Type:Self Pay Address: [facility] MEDICAID Care Teams Foam Rubber Fabricator Relationship Specialty Start Date End Date Gladys Delgado PA PCP - General Physician Pitting Machine Operator 11/22/14
--- OUTSIDE RECORDS SUMMARY | 2025-01-23 11:10 | XMS_ITS | Clinical Summary ---
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 extending from the colon along the superior and inferior aspects of the left paracolic gutter. Differential diagnosis includes malignancy and superimposed inflammation including partial visualization and pseudotumor formation. Comparison with prior available. Consider close interval follow-up versus colonoscopy. 2. Acute on chronic inflammation of the distal/terminal ileum with segmental stricturing. 3. Suboptimal evaluation of the venous structures. Visualization of the portal vein as well as venous varices in the monroe hepatis suggesting occlusion of venous structures. Comparison with prior would be helpful. Otherwise, follow-up views if imaging is recommended. DICTATION LOCATION: [address] 12/28/2024 10:35 AM CDT EXAMINATION: CT abdomen pelvis with contrast. HISTORY: Crohn's disease. TECHNIQUE: CT of the abdomen and pelvis was performed following intravenous administration of 90 mL Isovue 370 according to enterography protocol. The examination was performed with the adjustment of mA according to the patient size and/or the use of Iterative Reconstruction Technique. COMPARISON: None available. FINDINGS: The lung bases are clear. The heart is normal in size without pericardial effusion. The distal esophagus appears normal. No discrete suspicious intrahepatic lesion is identified. Phase of contrast is extremely early. The portal veins remain visible with incomplete contrast enhancement, possibly due to phase of contrast. However, varices are present within the monroe hepatis. This contributes to altered perfusion of the liver. Numerous gallstones are present within a decompressed gallbladder. There is no biliary ductal dilatation. The pancreas, spleen, and adrenal glands are unremarkable. The kidneys enhance symmetrically. There is no hydronephrosis. The bladder is distended. The prostate is mildly enlarged. There is thickening and mucosal hyperemia of the descending and proximal sigmoid colon. There is mild mucosal hyperemia. Extending from the descending colon, there is soft tissue extending inferior and superior along the left paracolic gutter (series 601, image 49). There is no evidence of acute appendicitis. There is no free gas. There is segmental thickening and mucosal hyperemia of the terminal ileum. There is long segment stricturing of the distal ileum measuring approximately 6 cm (image 132). There are changes of ventral hernia repair. There is mild to moderate calcified atherosclerosis. No lymphadenopathy is identified. There is no suspicious osseous lesion. Procedure Note Yohana Mosley MD - 12/28/2024 EXAMINATION: CT abdomen pelvis with contrast. HISTORY: Crohn's disease. TECHNIQUE: CT of the abdomen and pelvis was performed following intravenous administration of 90 mL Isovue 370 according to enterography protocol. The examination was performed with the adjustment of mA according to the patient size and/or the use of Iterative Reconstruction Technique. COMPARISON: None available. FINDINGS: The lung bases are clear. The heart is normal in size without pericardial effusion. The distal esophagus appears normal. No discrete suspicious intrahepatic lesion is identified. Phase of contrast is extremely early. The portal veins remain visible with incomplete contrast enhancement, possibly due to phase of contrast. However, varices are present within the monroe hepatis. This contributes to altered perfusion of the liver. Numerous gallstones are present within a decompressed gallbladder. There is no biliary ductal dilatation. The pancreas, spleen, and adrenal glands are unremarkable. The kidneys enhance symmetrically. There is no hydronephrosis. The bladder is distended. The prostate is mildly enlarged. There is thickening and mucosal hyperemia of the descending and proximal sigmoid colon. There is mild mucosal hyperemia. Extending from the descending colon, there is soft tissue extending inferior and superior along the left paracolic gutter (series 601, image 49). There is no evidence of acute appendicitis. There is no free gas. There is segmental thickening and mucosal hyperemia of the terminal ileum. There is long segment stricturing of the distal ileum measuring approximately 6 cm (image 132). There are changes of ventral hernia repair. There is mild to moderate calcified atherosclerosis. No lymphadenopathy is identified. There is no suspicious osseous lesion. IMPRESSION: 1. Inflammation of the descending colon with soft tissue extending from the colon along the superior and inferior aspects of the left paracolic gutter. Differential diagnosis includes malignancy and superimposed inflammation including partial visualization and pseudotumor formation. Comparison with prior available. Consider close interval follow-up versus colonoscopy. 2. Acute on chronic inflammation of the distal/terminal ileum with segmental stricturing. 3. Suboptimal evaluation of the venous structures. Visualization of the portal vein as well as venous varices in the monroe hepatis suggesting occlusion of venous structures. Comparison with prior would be helpful. Otherwise, follow-up views if imaging is recommended. DICTATION LOCATION: [address] [place] [facility] ORDERABLES Fin al Result * US VENOUS DOPPLER LEG RIGHT (12/27/2024 9:37 AM CDT) Anatomical Region Laterality Modality Lower Extremity Ultrasound 12/27/2024 9:37 AM CDT Impressions 12/27/2024 9:42 AM CDT IMPRESSION: 1. No evidence of right lower extremity deep vein thrombosis. 2. 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 DICTATION LOCATION: Location - [facility] Narrative 12/27/2024 9:42 AM CDT EXAMINATION: US VENOUS DOPPLER LEG RIGHT DATE: 12/27/2024 9:37 AM HISTORY: Extremity Edema; See Reason for Exam COMPARISON: No prior study is available for comparison at the time of this dictation. FINDINGS: Domínguez scale, color Doppler, and spectral waveform analysis was performed. The visible portions of the common femoral, femoral, proximal deep femoral, greater saphenous, and popliteal veins of the right lower extremity demonstrate normal compressibility, augmentation, and Doppler color flow without evidence of intravascular echogenicity. The contralateral groin was also evaluated for comparison and demonstrated occlusive echogenic thrombus of the superficial femoral artery with reconstitution distally. us Ivana Burris DO US ORDERABLES Edited Result - Final * (ABNORMAL) CBC WITHOUT DIFFERENTIAL (12/27/2024 7:01 AM CDT) WBC 8.8 4.0 - 9.8 K/uL 12/27/2024 7:45 AM CDT [facility] RBC 4.95 4.50 - 5.40 M/uL 12/27/2024 7:45 AM CDT [facility] HEMOGLOBIN 14.8 13.6 - 16.5 g/dL 12/27/2024 7:45 AM CDT [facility] HEMATOCRIT 45.4 40.0 - 48.0 % 12/27/2024 7:45 AM CDT [facility] MCV 91.7 82.0 - 99.0 fL 12/27/2024 7:45 AM CDT [facility] MCH 29.9 27.2 - 32.6 pg 12/27/2024 7:45 AM CDT [facility] MCHC 32.6 31.5 - 35.5 g/dL 12/27/2024 7:45 AM CDT [facility] PLATELETS 202 140 - 350 K/uL 12/27/2024 7:45 AM CDT [facility] MPV 9.6 9.3 - 12.4 fL 12/27/2024 7:45 AM CDT [facility] RDW 14.7(H) 11.5 - 14.5 % 12/27/2024 7:45 AM CDT [facility] RDW-STDEV 49.2(H) 37.1 - 48.7 fL 12/27/2024 7:45 AM CDT [facility] Blood Venipuncture / Unknown 12/27/2024 7:01 AM CDT 12/27/2024 7:42 AM CDT Ivana Dayton DO HEMATOLOGY ORDERABLES Final Resu lt [facility] CLIA# [id number] [place] [address] * EXTRA TUBE (URINE CONTAINER) (12/26/2024 8:47 PM CDT) Urine URINE SPECIMEN OBTAINED BY CLEAN CATCH PROCEDURE / Unknown Collection / Unknown 12/26/2024 8:47 PM CDT 12/26/2024 8:47 PM CDT Parmjit Jackson DO URINE ORDERABLES Final Result Performing Organization Address City/[facility]/ZIP Co de Phone Number [facility] CLIA# [id number] [place] [address] * EXTRA TUBE (URINE DOMÍNGUEZ) (12/26/2024 8:20 PM CDT) Urine URINE SPECIMEN OBTAINED BY CLEAN CATCH PROCEDURE / Unknown Collection / Unknown 12/26/2024 8:20 PM CDT 12/26/2024 8:47 PM CDT Ivana Dayton DO URINE ORDERABLES Final Result Performing Organization Address [facility]/ZIP Co de Phone Number [facility] CLIA# [id number] [place] [address] * (ABNORMAL) URINALYSIS WITH REFLEX MICROSCOPIC (12/26/2024 8:20 PM CDT) COLOR UA Yellow Pale to Dark Yellow 12/26/2024 9:01 PM [facility] CLARITY UA Clear Clear 12/26/2024 9:01 PM T [facility] SPECIFIC GRAVITY UA 1.029 1.003 - 1.035 12/26/2024 9:01 PM [facility] PH UA 5.0 5.0 - 8.0 12/26/2024 9:01 PM T [facility] LEUKOCYTE ESTERASE UA Negative Negative 12/26/2024 9:01 PM T [facility] NITRITE UA Negative Negative 12/26/2024 9:01 PM T [facility] PROTEIN UA Negative Negative 12/26/2024 9:01 PM [facility] GLUCOSE UA 3+(A) Negative 12/26/2024 9:01 PM [facility] KETONES UA 2+(A) Negative 12/26/2024 9:01 PM T [facility] UROBILINOGEN UA Normal <2.0 mg/dL 9:01 PM T [facility] BILIRUBIN UA Negative Negative 12/26/2024 9:01 PM T [facility] BLOOD UA Negative Negative 12/26/2024 9:01 PM [facility] WBC UA 0-2 0 - 2 /hpf 12/26/2024 9:01 PM T [facility] RBC UA 3-5(A) 0 - 2 /hpf 12/26/2024 9:01 PM CDT [facility] BACTERIA UA Negative Negative /hpf 12/26/2024 9:01 PM CDT [facility] EPITHELIAL CELLS, URINE 0-5 0 - 5 /hpf 12/26/2024 9:01 PM T [facility] HYALINE CAST None Seen None Seen, 0-2 /lpf 12/26/2024 9:01 PM T [facility] Urine URINE SPECIMEN OBTAINED BY CLEAN CATCH PROCEDURE / Unknown Collection / Unknown 12/26/2024 8:20 PM CDT 12/26/2024 8:47 PM CDT [facility] URINE ORDERABLES Final Result Performing Organization Address [facility]/ZIP Co de Phone Number [facility] [id number] [place] [address] * C. DIFFICILE DETECTION (12/26/2024 8:17 PM CDT) TOXIGENIC C DIFFICILE NOT DETECTED Not Detected 12/26/2024 10:50 PM CDT [facility] Stool STOOL SPECIMEN / Unknown Collection / Unknown 12/26/2024 8:17 PM CDT 12/26/2024 9:26 PM CDT Narrative [facility] - 12/26/2024 10:50 PM CDT This assay is used to detect Toxigenic C. difficile target(B gene) DNA sequences in unformed stool specimens. If toxigenic C. difficile is not detected, but clinical suspicion is high please consult ID for consultation and potential repeat testing. This test should not be used as a test of cure. Ivana Dayton JACOME MICROBIOLOGY - GENERAL ORDERABLE S Final Result Performing Organization Address [facility] Co de Phone Number [facility]# [id number] [place] [address] * PROTIME-INR (12/26/2024 6:50 PM CDT) Pathologist [facility] PROTIME 13.5 11.5 - 14.7 Seconds 12/26/2024 7:55 PM CDT [facility] INR 1.0 0.9 - 1.1 12/26/2024 7:55 PM CDT [facility] Blood Venipuncture / Unknown 12/26/2024 6:50 PM CDT 12/26/2024 7:35 PM CDT Ivana Dayton DO HEMATOLOGY ORDERABLES Final Resu lt [facility] [employer] [facility] [id number] [place] [address] * (ABNORMAL) HEMOGLOBIN A1C (12/26/2024 6:50 PM CDT) HEMOGLOBIN A1C 6.5(H) <=5.6 % 12/26/2024 8:53 PM CDT [facility] [employer] [facility] EST. AVG GLUCOSE, A1C 140 mg/dL 12/26/2024 8:53 PM CDT [facility] [employer] [facility] Blood Venipuncture / Unknown 12/26/2024 6:50 PM CDT 12/26/2024 7:35 PM CDT Narrative [facility] [employer] [facility] - 12/26/2024 8:53 PM CDT HGB A1C INTERPRETATION NORMAL: <5.7% PRE-DIABETES: 5.7 - 6.4% DIABETES: 6.5% OR GREATER Ivana Dayton DO CHEMISTRY ORDERABLES Final Resul t Performing Organization Address [facility]/ZIP Co de Phone Number [facility] [employer] [facility] [id number] [place] [address] * (ABNORMAL) COMPREHENSIVE METABOLIC PANEL (12/26/2024 6:50 PM CDT) SODIUM 136 136 - 145 mmol/L 12/26/2024 8:04 PM CDT [facility] [employer] [facility] POTASSIUM 4.0 3.4 - 5.1 mmol/L 12/26/2024 8:04 PM CDT [facility] [employer] [facility] CHLORIDE 103 98 - 107 mmol/L 12/26/2024 8:04 PM CDT [facility] [employer] [facility] CO2 26 22 - 29 mmol/L 12/26/2024 8:04 PM CDT [facility] [employer] [facility] CALCIUM 8.4(L) 8.6 - 10.4 mg/dL 12/26/2024 8:04 PM [facility] BUN 20 6 - 20 mg/dL 12/26/2024 8:04 PM [facility] CREATININE 0.57(L) 0.67 - 1.17 mg/dL 12/26/2024 8:04 PM [facility] GLUCOSE 94 74 - 99 mg/dL 12/26/2024 8:04 PM [facility] TOTAL PROTEIN 5.2(L) 6.3 - 8.7 g/dL 12/26/2024 8:04 PM T [facility] ALBUMIN 3.2(L) 3.5 - 5.2 g/dL 12/26/2024 8:04 PM T [facility] BILIRUBIN TOTAL 0.9 0.0 - 1.1 mg/dL 12/26/2024 8:04 PM [facility] ALKALINE PHOSPHATASE 39(L) 40 - 150 U/L 12/26/2024 8:04 PM [facility] AST 13 0 - 41 U/L 12/26/2024 8:04 PM [facility] ALT 12 0 - 41 U/L 12/26/2024 8:04 PM T [facility] GFR >60 >=60 mL/min/1.7 3 sq meter 12/26/2024 8:04 PM [facility] Comment:eGFR calculated with 2020 CKD-EPI equation. Vegetarian diet, extremely high or low muscle mass, and may affect results. Cystatin C with Glomerular Filtration Rate is a suitable alternative for these patients. ANION GAP 7(L) 8 - 16 mmol/L 12/26/2024 8:04 PM [facility] Blood Venipuncture / Unknown 12/26/2024 6:50 PM CDT 12/26/2024 7:35 PM CDT us Ivana Dayton DO CHEMISTRY ORDERABLES Final Resul t [facility] - [facility] CLIA# [id number] [place] [address] * XR ANKLE 2 VW BILAT (12/26/2024 5:54 PM CDT) Anatomical Region Laterality Modality Ankle / Foot Computed Radiogr aphy 12/26/2024 5:55 PM CDT Impressions 12/26/2024 6:06 PM CDT IMPRESSION: 1. No acute fracture or dislocation identified. DICTATION LOCATION: Location [address] [place] [address] Narrative 12/26/2024 6:06 PM CDT EXAMINATION: XR ANKLE 2 VW BILAT DATE: 12/26/2024 5:54 PM HISTORY: Fall; See Reason for Exam COMPARISON: No prior study is available for comparison at the time of this dictation. FINDINGS: Right ankle: There is no evidence of acute fracture or dislocation. The ankle mortise is intact. Bone mineralization is normal. Soft tissue swelling is seen. Left ankle: There is no evidence of acute fracture or dislocation. The ankle mortise is intact. Bone mineralization is normal. Soft tissue swelling is seen. A calcaneal spur is present. Procedure Note Rob Harrison MD - 12/26/2024 EXAMINATION: XR ANKLE 2 VW BILAT DATE: 12/26/2024 5:54 PM HISTORY: Fall; See Reason for Exam COMPARISON: No prior study is available for comparison at the time of this dictation. FINDINGS: Right ankle: There is no evidence of acute fracture or dislocation. The ankle mortise is intact. Bone mineralization is normal. Soft tissue swelling is seen. Left ankle: There is no evidence of acute fracture or dislocation. The ankle mortise is intact. Bone mineralization is normal. Soft tissue swelling is seen. A calcaneal spur is present. IMPRESSION: 1. No acute fracture or dislocation identified. DICTATION LOCATION: [address] Ivana Dayton DO DIAGNOSTIC IMAGING ORDERABLES Fi nal Result from Last 3 Months Insurance [facility] [employer] [place] [employer] Medicaid Advance Directives For more information, please contact: [phone] * Full Code (Latest Code Status on File) Date Activated Date Inactivated Comments 12/26/2024 4:55 PM 12/30/2024 1:08 PM
--- OUTSIDE RECORDS SUMMARY | 2025-01-23 11:10 | XMS_ITS | Clinical Summary ---
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 Name Role Phone Unavailable Primary Care Provider [...] of 2) 2013 COVID-19 Vaccine (1 - 2024-2 6 season) 2024 Influenza Adult (#1) 2024 RSV Immunization or 60+ Years (1 - 1-dose 75+ series) 2038 Hepatitis A Vaccines Aged Out No long er eligible based on patient's age to complete this topic Meningococcal B Vaccine Aged Out No l onger eligible based on patient's age to complete this topic Meningococcal Vaccine Aged Out No william juan eligible based on patient's age to complete this topic RSV Immunizations Under 20 Months Aged Out No longer eligible based on patient's age to complete this topic
[2025-01-23 11:19] LABS: Thyroid Stimulating Hormone 0.429 uIU/mL (0.465-4.680)
[2025-01-23 11:57] LABS: Hemoglobin A1C 6.4 % (<5.7)
== END 2025-01-23 09:45 | disposition home or self-care (01) ==
PROVIDERS: PCP Physician Assistant; Visit Provider Internal Medicine
DX: Z13.220 Encounter for screening for lipoid disorders (principal); K74.69 Other cirrhosis of liver; E11.65 Type 2 diabetes mellitus with hyperglycemia; R41.89 Other symptoms and signs involving cognitive functions and awareness; R46.89 Other symptoms and signs involving appearance and behavior; Z79.899 Other long term (current) drug therapy
CPT/HCPCS: 36415; 80053; 80061; 82043; 82140; 83036; 84439; 84443; 85025